=== PATIENT | male | born 1980 | race Caucasian/White ===

== ENCOUNTER → 2017-10-19 14:28 | Outpatient (CLI) | payer OTHER, SELFPAY ==
[2017-10-19 15:02] LABS: ALT 30 U/L (12-78); AST 16 U/L (15-37); Albumin 4.1 g/dL (3.4-5.0); Alkaline Phosphatase 67 U/L (46-116); Anion Gap 6.6 mmol/L (3-11); BUN 24 mg/dL (7-18); Bilirubin, Total 0.3 mg/dL (0.2-1.0); CO2 30.4 mmol/L (21.0-32.0); CREATININE 1.05 mg/dL (0.70-1.30); Calcium 8.7 mg/dL (8.5-10.1); Chloride 105 mmol/L (98-107); Glucose 99 mg/dL (70-100); Magnesium 2.3 mg/dL (1.8-2.4); Potassium 4.2 mmol/L (3.5-5.1); Sodium 142 mmol/L (136-145); TSH (W/Ref FT4) 1.55 uIU/mL (0.358-3.74); Total Protein 7.9 g/dL (6.4-8.2)
== END ==
PROVIDERS: PCP Family Medicine; Visit Provider Family Medicine
DX: I95.1 Orthostatic hypotension (principal)
CPT/HCPCS: 36415; 80053; 83735; 84443

== ENCOUNTER 2018-01-19 00:15 | Outpatient (CLI) | payer OTHER, SELFPAY ==
--- NOTE | 2018-01-19 13:00 | ETT_ITS ---
*[facility]* *[facility]* [address] [place] [address] Stress Electrocardiography Ezra protocol Date of study: 01/19/2018 *PATIENT PRESENTATION* Height: 177.8cm (70in) Blood Pressure: Weight: 85kg (187lb) BSA: 2.06m^2 Ordering physician: Paresh Gonzalez Impressions: Normal study after maximal exercise. Summary: 1. Stress: The target heart rate was achieved. Indication: R07.9. History: REASON FOR VISIT: INTERMITTENT PALPITATIONS AND EXERTIONAL LOWER CHEST DISCOMFORT. PT HAS A HISTORY OF SVT, CURRENTLY ON BETA-KWABENA THERAPY. ALLERGIES: NO KNOWN ALLERGIES. MEDICATIONS: OMEPRAZOLE MAGNESIUM 20 MG PO DAILY. BUPRENORPHINE 2MG - NALOXONE 0.5 MG SUBLINGUAL 4 TABS SL DAILY. CLONAZAEPAM 0.5 MG PO TID. METOPROLOL SUCCINATE ER 50 MG PO DAILY. Protocol: Ezra protocol. Baseline ECG: SINUS RHYTHM. HR 69 BPM. Stress protocol: + +---+ + !Stage !HR !BP (mmHg) ! + +---+ + !Baseline supine !69 !112/72 (85) ! + +---+ + !Baseline standing !78 !110/70 (83) ! + +---+ + !Stage I; 1.7mph, 10degrees; 3 min !146!122/68 (86) ! + +---+ + !Stage II; 2.5mph, 12degrees; 3 min !156!148/82 (104)! + +---+ + !Stage III; 3.4mph, 14degrees; 3 min!164!152/62 (92) ! + +---+ + !Peak stress !164! ! + +---+ + !Immediate post stress !---!122/62 (82) ! + +---+ + !Recovery; 1 min !146! ! + +---+ + !Recovery; 3 min !99 !144/82 (103)! + +---+ + !Recovery; 6 min !90 !120/60 (80) ! + +---+ + * Stress results: Maximal heart rate during stress was 164bpm (90% of maximal predicted heart rate). The maximal predicted heart rate was 183bpm. The target heart rate was achieved. The rate-pressure product for the peak heart rate and blood pressure was 43248nc Hg/min. Stress ECG: TREADMILL PORTION OF STRESS TEST ENDED IN 9 MINUTES & 1 SECOND BECAUSE OF PATIENT FATIGUE NORMAL HEART RATE RESPONSE TO EXERCISE SYSTOLIC BLOOD PRESSURE DROPPED 30 mmHg UPON IMMEDIATE RECOVERY. OTHERWISE NORMAL BP RESPONSE TO EXERCISE MAX HR = 164 % OF TARGET = 89 NO ECTOPY APPROXIMATE METS ACHIEVED = 10.16 NO ANGINA NO SIGNIFICANT ST SEGMENT CHANGES MILDLY DIMINISHED FUNCTIONAL CAPACITY FOR EXERCISE. Study data: Paresh Gonzalez MD supervised and was readily available during the procedure. This study was interpreted by [facility]. Study status: Routine. Consent: The risks, benefits, and alternatives to the procedure were explained to the patient and informed consent was obtained. Procedure: Initial setup. A baseline ECG was recorded. Surface ECG leads and manual cuff blood pressure measurements were monitored. Heart sounds: Normal. Lung sounds: Normal. Treadmill exercise testing was performed using the Ezra protocol. Study completion: The patient tolerated the procedure well and was discharged from the lab. Discharge: The patient left the laboratory in stable condition. Birthdate: Patient birthdate: 1980. Sex: Gender: male. Study date: Study date: 01/19/2018. Study time: 01:00 PM. Signature Documentation: The Stress ECG portion of this study was interpreted by Paresh Gonzalez MD. Electronically signed by Paresh Gonzalez 01/19/2018 14:49
== END 2018-01-19 00:35 ==
PROVIDERS: PCP Family Medicine; Visit Provider Internal Medicine Cardiovascular Disease
DX: R07.9 Chest pain, unspecified (principal); R00.2 Palpitations; I47.1 Supraventricular tachycardia
CPT/HCPCS: 93017

== ENCOUNTER 2018-02-19 02:42 | Outpatient (CLI) | payer OTHER, SELFPAY ==
--- NOTE | 2018-03-30 10:08 | ZIOP_ITS ---
DATE OF DICTATION: March 30, 2018 INDICATION: SVT ANALYSIS TIME: 13 days and 21 hours Predominant underlying rhythm is sinus rhythm. Average heart rate is 69 bpm. Minimum heart rate of 34 bpm. Maximum heart rate of 156 bpm. One run of SVT lasting 12 beats with a maximum heart rate of 156 bpm. Rare isolated atrial ectopy. Rare isolated ventricular ectopy. No non-sustained VT. Three episodes of what appear to be non-conducted APC's. No significant pauses of bradyarrhythmias otherwise. Overall sinus rhythm with one short burst of SVT that was asymptomatic. Thirty patient-triggered events all correspond to sinus rhythm.
== END 2018-02-19 03:02 ==
PROVIDERS: PCP Family Medicine; Visit Provider Family Medicine
DX: I47.1 Supraventricular tachycardia (principal)
CPT/HCPCS: 93225

== ENCOUNTER 2018-04-12 14:43 | Outpatient (REF) | payer OTHER, SELFPAY ==
[2018-04-15 06:55] LABS: Amphetamine Negative ng/mL (Cutoff: 25); Amphetamines Interpretation Negative.; MDA (Ecstasy Metabolite) Negative ng/mL (Cutoff: 25); MDMA (Ecstasy) Negative ng/mL (Cutoff: 25); Methamphetamine Negative ng/mL (Cutoff: 25); Phentermine Negative ng/mL (Cutoff: 25); Pseudoephedrine/Ephedrine Negative ng/mL (Cutoff: 25)
== END 2018-04-12 15:03 ==
LOC: LBN 14:43
PROVIDERS: PCP Family Medicine; Visit Provider Family Medicine
DX: F11.20 Opioid dependence, uncomplicated (principal)
CPT/HCPCS: 80324

== ENCOUNTER 2018-07-19 10:36 | Emergency (ER) | payer OTHER, SELFPAY ==
[2018-07-19 10:54] VITALS: BP 115/67; PULSE 94; RESP 18; TEMP 36.7; O2SAT 96
--- NOTE | 2018-07-19 11:26 | W.ED.GENAD ---
Discharge Plan Disposition Patient Disposition: HOME Condition: Improving Discharge Details Chief Complaint: Nausea/Vomit/Diar Clinical Impression: Gastroenteritis Primary Care Provider: Yang Bejarano ED Provider: Jason Voss Home Meds and New Rx's Prescriptions: Continued buprenorphine-naloxone 2-0.5 mg tablet, sublingual 4 tab SL DAILY Qty: 112 RF: 1 clonazepam [Klonopin] 0.5 mg tablet 0.5 mg PO TID Qty: 88 RF: 0 metoprolol succinate 50 mg tablet extended release 24 hr 25 mg PO DAILY RF: 0 Prilosec OTC 20 MG tablet,delayed release (DR/EC) 20 mg PO DAILY RF: 0 Discharge Instructions Instructions: Gastroenteritis (ED) Additional Instructions: Return immediately to the emergency department if you been again having severe abdominal pain, worsening of symptoms, or further concerns. Otherwise follow-up with your primary care provider if not improving by next week Stand Alone Forms: Work Release Referrals: Yang Bejarano DO [Primary Care Provider] - (As needed for reassessment) Discharge Data Discharge Date/Time-TO BE ENTERED AT DEPARTURE: 07/19/18 13:38 Medical Decision Making Patient presenting the emergency department for chief complaint of nausea vomiting and diarrhea. Patient states that this started 3 days ago and has been persistent with multiple episodes of vomiting and diarrhea. Patient denies any blood in emesis or stool, no mucus in stool, does state some fever last night that has seemed to resolve but is mostly concerned about having some lightheadedness with standing and dehydration. Physical exam shows a nontender abdomen with no peritoneal findings, no surgical findings, and patient is not hypotensive and otherwise stable. Plan to check labs and give IV fluids but at this time I do not feel that CT imaging is warranted given nonsurgical abdominal findings. Pending results patient given Zofran and 1 L NS. Review of results does show a leukocytosis, concentrated urine suggestive of dehydration otherwise nondiagnostic, and nondiagnostic CMP findings. Patient was reassessed and states that he is improving, having multiple urinations, and no longer feels significantly lightheaded upon standing. He is requesting to go home even though he was offered additional IV fluids. Given that he is improving and has no surgical abdominal findings close return precautions were discussed. Patient was able to tolerate p.o. intake prior to discharge. diagnosed with gastroenteritis presumably viral in nature. patient prescribed Zofran for home use. After discussion of diagnosis and plan of care patient has no further needs, questions, or concerns and states clear understanding to return to the emergency department for any worsening symptoms. HPI General Mode of arrival: ambulatory. Date/Time Provider Initiated Documentation: 07/19/18 10:58. Limitations to Documentation: no limitations. Information obtained by: patient and RN notes reviewed. History of Present Illness 38 year old M presents to the emergency department with the chief complaint of Nausea vomiting diarrhea, Quality is described as other (Denies pain), and is localized to the abdomen. Patient started experiencing this day(s) (3) and it has been constant. No relieving factors improve symptom(s), No exacerbating factors reported . Patient did receive the following treatments prior to arrival, none Related Data Home Medications Medication Instructions Recorded Confirmed Prilosec OTC 20 mg PO DAILY tab 06/01/17 07/05/18 metoprolol succinate ER 50 mg 25 mg PO DAILY tab 05/10/18 07/05/18 tablet,extended release 24 hr buprenorphine 2 mg-naloxone 0.5 mg 4 tab SL DAILY #112 tab 07/05/18 07/05/18 sublingual tablet clonazepam 0.5 mg tablet 0.5 mg PO TID #88 tab 07/05/18 07/05/18 Previous Rx's Medication Instructions Recorded buprenorphine 2 mg-naloxone 0.5 mg 4 tab SL DAILY #112 tab 07/05/18 sublingual tablet clonazepam 0.5 mg tablet 0.5 mg PO TID #88 tab 07/05/18 Allergies Allergy/AdvReac Type Severity Reaction Status Date / Time No Known Allergies Allergy Verified 07/05/18 15:07 General Stated Complaint: Nausea/Vomit/Diar ANGELINA: 3 Review of Systems Constitutional Reports chills, Denies fever(s) and Reports poor appetite Cardiovascular Denies chest pain and Denies dyspnea Respiratory Denies cough and Denies dyspnea Gastrointestinal Reports as per HPI, Denies abdominal pain, Denies melena, Denies hematochezia, Denies change in bowel habits, Denies constipation, Reports diarrhea, Reports nausea and Reports vomiting Genitourinary Denies hematuria, Denies difficulty urinating, Denies urinary hesitancy, Denies urinary incontinence and Denies urinary urgency Integumentary/Breasts Denies rash [facility] Medical History Uncomplicated opioid dependence (Chronic 06/01/17) Family History Mother No problems noted. 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 Working smoke detector in home: Yes Fire extinguisher in home: Yes Carbon monox detector in home: Yes Do you feel safe at home: Yes Exam Const General: cooperative Orientation: alert, awake and oriented x3 Resp Effort & Inspection: normal respiratory effort and able to speak in complete sentences Auscultation: clear to auscultation bilaterally Cardio Rate: regular rate Rhythm: regular rhythm Heart Sounds: S1 normal and S2 normal GI Palpation: soft, no hepatosplenomegaly, not firm, no guarding, no masses, no pulsatile masses, not rigid, no splenomegaly and nontender Auscultation: hypoactive bowel sounds Back/Spine/Pelvis Back: no CVA tenderness Neuro General: alert, awake, oriented x3, gait normal and moves all extremities Course Vital Signs Temperature 36.7 C 07/19/18 10:54 Pulse 94 H 07/19/18 10:54 Respiratory Rate 18 07/19/18 10:54 Blood Pressure 115/67 07/19/18 10:54 Pulse Oximetry 96 07/19/18 10:54 Temperature 36.7 C 07/19/18 10:54 Temperature Source Skin 07/19/18 10:54 Pulse 94 H 07/19/18 10:54 Respiratory Rate 18 07/19/18 10:54 Blood Pressure 115/67 07/19/18 10:54 Pulse Oximetry 96 07/19/18 10:54 Pain Level 0 07/19/18 10:54
[2018-07-19] MEDS: Ondansetron 4 MG/2 ML VIAL IVP (11:39)
[2018-07-19] MEDS: Normal Saline 1,000 ML 1000 ML IV (11:39)
[2018-07-19 11:47] LABS: Abs Immature Grans 0.05 k/cumm (0.0-0.09); Absolute Basophil Count 0.02 k/cumm (0.0-0.2); Absolute Lymphocyte Count 1.13 k/cumm (1.2-3.4); Absolute Monocyte Count 0.75 k/cumm (0.11-0.7); Absolute Neutrophil Count 13.98 k/cumm (1.2-6.7); Basophils % 0.1; Eosinophils % 0.1; HCT 38.9 % (40.0-50.0); HGB 13.1 g/dL (13.5-17.5); Immature Grans % 0.3; Lymphocytes % 7.1; Mean Corp. HGB Concentration 33.7 g/dL (32.0-36.0); Mean Corpuscular Hemoglobin 29.7 pg (27.0-33.0); Mean Corpuscular Volume 88.2 fL (80-95); Mean Platelet Volume 9.9 fL (8.0-11.0); Monocytes % 4.7; Neutrophils % 87.7; Platelet Count 255 x1000/uL (130-400); RBC 4.41 m/cumm (4.50-6.00); RBC Distribution Width 12.6 % (11.8-14.1); White Blood Cell Count 15.94 k/cumm (4.4-10.8)
[2018-07-19 11:49] LABS: Absolute Eosinophil Count 0.02 k/cumm (0.0-0.7)
[2018-07-19 11:59] LABS: ALT 55 U/L (12-78); AST 39 U/L (15-37); Albumin 4.2 g/dL (3.4-5.0); Alkaline Phosphatase 64 U/L (46-116); Anion Gap 9.9 mmol/L (3-11); BUN 24 mg/dL (7-18); Bilirubin, Total 0.5 mg/dL (0.2-1.0); CO2 27.1 mmol/L (21.0-32.0); CREATININE 1.02 mg/dL (0.70-1.30); Chloride 102 mmol/L (98-107); Glucose 122 mg/dL (70-100); Lipase 248 U/L (73-393); Potassium 4.2 mmol/L (3.5-5.1); Sodium 139 mmol/L (136-145); Total Protein 7.9 g/dL (6.4-8.2)
[2018-07-19 12:12] LABS: Calcium 9.1 mg/dL (8.5-10.1)
[2018-07-19 12:31] LABS: Bilirubin Negative (Negative); Blood Negative (Negative); Clarity Clear; Glucose Negative (Negative); Ketones Negative (Negative); Leukocyte Esterase Negative (Negative); Nitrite Negative (Negative); Specific Gravity 1.015 (1.005-1.025); Urobilinogen 0.2 EU/dL (Up TO 0.2); pH 8.5 (5-8)
--- NOTE | 2018-07-19 12:36 | NUR.NOTE ---
patient rounded on, ART DEALER aware of patient's headache. Nursing Note:
[2018-07-19 12:45] LABS: Bacteria Negative HPF (Negative); C & S Indicated? No; Casts Negative LPF (Negative); Crystals Negative HPF (Negative); Epithelial Cells Rare HPF (Negative); Mucus Trace (Negative); RBC Negative (0-2); WBC 0-2 HPF (0-5)
--- NOTE | 2018-07-19 12:50 | NUR.NOTE ---
patient refused offered toradol and would like to go home, patient took po execedrin with out vomiting, patient ambulating steadily. Nursing Note:
== END 2018-07-19 13:38 | disposition home or self-care (01) ==
PROVIDERS: Emergency Provider Nurse Practitioner Family; PCP Family Medicine
DX: K52.9 Noninfective gastroenteritis and colitis, unspecified (principal)
CPT/HCPCS: 36415; 80053; 83690; 96361; 96374; 99284; 81003; 81015; 85025; J2405

== ENCOUNTER 2018-09-03 01:57 | Outpatient (CLI) | payer OTHER, SELFPAY ==
--- NOTE | 2018-09-03 09:25 | DI.RAD_ITS ---
SYMPTOM/DIAGNOSIS; POSITIONAL RADICULOPATHY M54.14 THORACIC SPINE: Comparison is made with chest x-ray dated 11 Feb 2006 The vertebral bodies are well maintained in height. There are no significant end plate osteophytes. There is no visible scoliosis. The heart size appears normal. The visualized portions of the lungs appear clear. IMPRESSION: Negative thoracic spine.
--- NOTE | 2018-09-03 09:25 | DI.CT_ITS ---
SYMPTOM/DIAGNOSIS: UNINTENTIONAL 20 LB WEIGHT LOSS, LUQ PAIN CT CHEST, ABDOMEN AND PELVIS IV access was unable to be obtained. Images were performed from the clavicles through the ischial tuberosities after oral contrast. The lungs are clear. No pleural or pericardial effusions are seen. The heart size is normal. There is no evidence of adenopathy. The thyroid appears normal. The liver, gallbladder, spleen, pancreas, adrenals and left kidney are unremarkable without IV contrast. There is an area of scarring at the upper pole of the right kidney. No renal calculi or hydronephrosis is seen. The bladder and prostate are unremarkable. There is increased stool in the rectum. There are scattered diverticula but no evidence of diverticulosis. There is no gross evidence of a colonic mass. There is no small bowel dilatation The appendix appears normal. There are bilateral L5 pars defects. There is slight L5-S1 spondylolisthesis. No lytic or blastic bony lesions are seen. The aorta is normal in diameter. IMPRESSION: No acute abnormality.
== END 2018-09-03 02:17 ==
PROVIDERS: PCP Family Medicine; Visit Provider Family Medicine
DX: M54.14 Radiculopathy, thoracic region; M54.6 Pain in thoracic spine; R63.4 Abnormal weight loss; R10.12 Left upper quadrant pain; K57.30 Diverticulosis of large intestine without perforation or abscess without bleeding
CPT/HCPCS: 71250; 72072; 74176

== ENCOUNTER 2018-12-03 16:21 | Emergency (ER) | payer OTHER, SELFPAY ==
[2018-12-03 16:23] VITALS: BP 117/82; PULSE 76; RESP 16; TEMP 36.6; O2SAT 98
--- NOTE | 2018-12-03 16:32 | ED.GENADUL_ITS ---
Discharge Plan Disposition Patient Disposition: HOME Condition: Good Discharge Details Chief Complaint: Abd Prob Clinical Impression: Abdominal pain, Cyst of spleen, Anemia Primary Care Provider: Yang Bejarano ED Provider: Lizabeth Yousif Home Meds and New Rx's Prescriptions: Continued metoprolol succinate 50 mg tablet extended release 24 hr 50 mg PO DAILY RF: 0 buprenorphine-naloxone 2-0.5 mg tablet, sublingual 2 tab SL BID Qty: 112 RF: 1 clonazepam [Klonopin] 0.5 mg tablet 0.5 mg PO TID Qty: 90 RF: 0 Prilosec OTC 20 MG tablet,delayed release (DR/EC) 20 mg PO DAILY RF: 0 Discharge Instructions Instructions: Abdominal Pain (ED) Additional Instructions: Encourage hydration. You may continue with Tylenol and ibuprofen as needed for discomfort. Please follow-up with primary care at the end of the week if pain persist. He will need follow-up with general surgery, I have sent a referral for this. You may call tomorrow to schedule appointment, number listed below. If you develop fever/chills, inability stay hydrated, increased pain or other new/worsening symptoms please seek care urgently once again. Referrals: Yang Bejarano DO [Primary Care Provider] - Emeli Silverman DO [OSTEOPATHIC DOCTOR] - Medical Decision Making Patient is a 38-year-old male presenting today with chief complaint of right inguinal pain. Patient reports that he has a known right inguinal hernia. He is status post left inguinal hernia repair from 2009. States that his hernia has been bothering over the past several months but that over the past 3 to 4 days, the pain has been more consistent. States over the past several months has had some mild nausea that is been limiting his appetite. Reports over 40 pound weight loss over the past 2 months. Patient's been closely followed by his primary care. States that he typically suffers from constipation associates this with his daily Suboxone use. Denies any fevers or chills. States the pain can radiate around the abdomen. Reports he did have a bowel movement this morning that was smaller than his typical. States that he does hold the hernia when having a bowel movement or straining. Denies any dysuria, hematuria, penile discharge or penile pain. No other abdominal surgeries. Patient also reports that 2 days ago he had an episode of 40 minutes of chest pain with pain radiating into the left arm. States that this occurred while he was driving. Denies any shortness of breath. States he is also been suffering from intermittent dizziness. On that same day as the chest pain, he reports experiencing dizziness to the point that he almost fell and laid on the ground. Denies any loss of consciousness. Is not currently symptomatic. Denies any headache. No visual changes. No neck pain. Patient has history of anxiety, cannot see patient due to opioid therapy for diverticulosis, incarcerated right inguinal hernia, opioid dependence. He denies any IV drug use. FINDINGS: Lungs: Lung bases clear. Liver: Normal appearing liver. Gallbladder and bile ducts: Normal appearing gallbladder. No calcified gallstones. No biliary dilatation. Pancreas: Moderate atrophy of the pancreas. Spleen: Indeterminate hypoattenuating splenic lesion, incompletely characterized but most likely a small cyst or hemangioma. Adrenals: Normal appearing adrenal glands. Kidneys and ureters: Renal cortical defect on the right with an appearance suggesting a prior infarct, prior infection, or other prior renal insult. Otherwise normal renal morphology. No hydronephrosis. Stomach and bowel: No oral contrast. Stomach partially decompressed. No small bowel dilatation to suggest obstruction. Distal ascending and proximal sigmoid colon almost completely evacuated fecal material, collapsed, and apparently thickwalled. Artifact of incomplete distention? Acute segmental colitis? Appendix: Normal appendix. Intraperitoneal space: No gross ascites or free air. Vasculature: Normal caliber abdominal aorta. Lymph nodes: No pathologically enlarged mesenteric, retroperitoneal, or pelvic sidewall lymph nodes. Bladder: Urinary bladder partially collapsed but grossly unremarkable, as seen. Reproductive: Normal-appearing prostate gland and seminal vesicles. Bones/joints: Bilateral spondylolysis at L5 but no associated spondylolisthesis. No acute fracture seen among the bones of the abdomen or pelvis. Soft tissues: No significant ventral or inguinal hernia. IMPRESSION: 1. Distal ascending and proximal sigmoid colon almost completely evacuated fecal material, collapsed, and apparently thickwalled. Artifact of incomplete distention or acute segmental colitis could have this appearance. Clinical correlation is recommended. If there is clinical concern for colitis, infectious, inflammatory, or ischemic etiologies should be considered. 2. Normal appendix. The colitis that is on the differential as above is not suspect at this time. Patient is not having any diarrhea. He is nontender in this area. He is not having any fevers, no white count. This is likely as also may be suggested as a artifact of incomplete distention. Labs reviewed. He has no white count. He is anemic with hemoglobin 12 the patient. BUN is elevated 25. This is normal for the patient. Troponin is within normal limits. No abnormalities noted on the urine. Discussed these findings with the patient. I advised that while he does seem to still have some tenderness and swelling consistent with an inguinal hernia, it may be reducing when supine as in the CT. At this point, there is no evidence on physical exam or on CT to suggest an incarcerated hernia. He does not have any evidence of acute coronary syndrome. Patient's been resting comfortably here. He is actually sleeping. I did advise that he will need close follow-up particularly as he has had such significant weight loss. At this point though, I feel that emergent differentials have been excluded. He will follow-up with primary care and has been referred to general surgery for his persistent right inguinal discomfort. He was given strict return precautions. All his questions and concerns were addressed and he is in agreement with this plan. [facility] General Mode of arrival: ambulatory . Date/Time Provider Initiated Documentation: 12/03/18 16:31 . Limitations to Documentation: no limitations . Information obtained by: patient and RN notes reviewed . History of Present Illness 38 year old M presents to the emergency department with the chief complaint of abdominal pain, described as moderate, Quality is described as aching, and is localized to the abdomen. Patient reports no radiation. Patient started experiencing this day(s) (3) and it has been constant. No relieving factors improve symptom(s), Eating worsens symptoms . Patient notes chest pain (a few days ago while driving, asympatomic since then), loss of appetite, nausea/vomiting (nausea, no vomiting) and weakness (describes generalized weakness); denies cough, diaphoresis, fever/chills, headaches, malaise, rash, shortness of breath and syncope. Patient did receive the following treatments prior to arrival, none Related Data Home Medications Medication Instructions Recorded Confirmed Prilosec OTC 20 mg PO DAILY tab 06/01/17 12/03/18 metoprolol succinate 50 mg 50 mg PO DAILY tab 09/25/18 12/03/18 tablet,extended release 24 hr buprenorphine 2 mg-naloxone 0.5 mg 2 tab SL BID #112 tab 11/20/18 12/03/18 sublingual tablet clonazepam 0.5 mg tablet 0.5 mg PO TID #90 tab 11/20/18 12/03/18 Previous Rx's Medication Instructions Recorded buprenorphine 2 mg-naloxone 0.5 mg 2 tab SL BID #112 tab 11/20/18 sublingual tablet clonazepam 0.5 mg tablet 0.5 mg PO TID #90 tab 11/20/18 Allergies Allergy/AdvReac Type Severity Reaction Status Date / Time No Known Allergies Allergy Verified 11/20/18 14:04 General Stated Complaint: Abd Prob ANGELINA: 3 Review of Systems Constitutional Constitutional: Reports as per HPI, Denies chills, Denies fever(s), Denies headache(s), Denies lethargy, Denies poor appetite and Reports weight loss Eyes Eyes: Denies change in vision ENT Ears, Nose, Mouth, and Throat: Denies dizziness and Denies headache(s) Cardiovascular Cardiovascular: Reports as per HPI, Reports chest pain (while driving 3 days ago), Denies dyspnea and Denies dyspnea on exertion Respiratory Respiratory: Reports as per HPI, Denies chest congestion, Denies cough, Denies pain on inspiration, Denies pain with cough, Denies dyspnea, Denies dyspnea on exertion and Denies wheezing Gastrointestinal Gastrointestinal: Reports as per HPI, Reports abdominal pain, Denies change in bowel habits (chronic constipation), Denies coffee ground emesis, Reports constipation, Denies cramping, Denies diarrhea, Reports nausea and Denies vomiting Genitourinary Genitourinary: Denies system reviewed and no additional complaints, except as docu (denies change in urinary habits) Musculoskeletal Musculoskeletal: Reports as per HPI and Denies back pain Integumentary/Breasts Skin/Breast: Reports as per HPI and Denies rash Neurologic Neurologic: Reports as per HPI, Denies dizziness and Denies headache(s) Allergic/Immunologic Allergic/Immunologic: Denies wheezing [facility] Medical History Anxiety (Chronic) Constipation due to opioid therapy (Acute) Diverticulosis (Acute) Incarcerated right inguinal hernia (Acute) Uncomplicated opioid dependence (Chronic 06/01/17) Social History Smoking/Tobacco Use Status: Former Tobacco Use Alcohol Intake: never Drug use: Current Sobriety Substance use type: former substance user and opiates Household members: children Housing: house Number of Children: 2 current occupation: works [employer] What type of physical activity do you participate in: none Seatbelt use: always Drive intox or ride w/intox lyft driver: No Working smoke detector in home: Yes Fire extinguisher in home: Yes Carbon monox detector in home: Yes Do you feel safe at home: Yes Do you feel safe in your relationship?: Yes Exam Const General: cooperative, healthy appearing, comfortable, no acute distress and well developed Nutritional Appearance: average body habitus and well nourished Orientation: alert, awake and oriented x3 HENMT Head: normal to inspection Ears: hearing grossly normal bilaterally Mouth: moist mucous membranes Chest Chest: normal inspection of the chest, normal palpation of entire chest wall and no crepitus Resp Effort & Inspection: normal respiratory effort, able to speak in complete sentences and no respiratory distress Auscultation: clear to auscultation bilaterally, no rales, no rhonchi and no wheezes Cardio Rate: regular rate Rhythm: regular rhythm Heart Sounds: S1 normal and S2 normal GI Inspection: normal to inspection, no edema, non-distended, no visible herniation and No visible peristalsis Palpation: soft, no hepatosplenomegaly, not firm, no guarding, hernia direct inguinal (swelling over this area, tender to palpation, no erythema/warmth, soft to palpation) on the right, no pulsatile masses, not rigid, no splenomegaly and nontender Percussion: normal to percussion Auscultation: hypoactive bowel sounds Back/Spine/Pelvis Back: no CVA tenderness Thoracic/Lumbar Spine: thoracic and lumbar spine normal to inspection Skin General skin exam: no rashes or lesions noted Trauma: no lacerations or abrasions Neuro General: alert, awake and oriented x3 Cognition: normal cognition Speech: speech normal Gait: normal gait Extrem General: normal to inspection, normal capillary refill, no pedal edema, no calf tenderness and normal gait Psych Appearance: grossly normal and well kempt Mental Status: mental status grossly normal Speech and Movement: speech and movement normal Course Vital Signs Vital signs: Vital Signs Temperature 36.6 C 12/03/18 16:23 Pulse 76 12/03/18 16:23 Respiratory Rate 16 12/03/18 16:23 Blood Pressure 117/82 12/03/18 16:23 Pulse Oximetry 98 12/03/18 16:23 Temperature 36.6 C 12/03/18 16:23 Temperature Source Skin 12/03/18 16:23 Pulse 76 12/03/18 16:23 Respiratory Rate 16 12/03/18 16:23 Respiratory Effort Non-Labored 12/03/18 16:28 Blood Pressure 117/82 12/03/18 16:23 Blood Pressure Position Sitting 12/03/18 16:23 Pulse Oximetry 98 12/03/18 16:23 Oxygen Delivery Method Room Air 12/03/18 16:23 Oxygen Flow Rate 0 12/03/18 16:23
--- NOTE | 2018-12-03 16:46 | DI.CT_ITS ---
EXAM: CT ABDOMEN PELVIS W CLINICAL HISTORY: RLQ pain near hernia. TECHNIQUE: The examination was carried out with intravenous injection of 100 cc of Omnipaque 350. COMPARISON: CT CHEST/ABD/PEL W from 09/03/2018 FINDINGS: The liver is normal. The gallbladder is normal. There are no stones or ductal dilatation. There is m oderate pancreatic atrophy. Intermediate hypoattenuating splenic lesion is demonstrated and most lik carlos represents a small cyst or hemangioma. Adrenals are normal. There is a renal cortical defect on the right with an appearance suggesting a prior infarct or infection. Kidneys are otherwise normal with no evidence of hydronephrosis. Stomach is partially decompressed. There is no evidence of bowel obstruction. The distal ascending proximal sigmoid colon are a completely evacuated of fecal materi al and collapsed with questionable wall thickening. This finding could be due to incomplete distensi on. Acute segmental colitis could not be entirely excluded. The appendix is normal. There is no boris dence of free air or free fluid in the intra peritoneal space. There is no evidence of an aortic ane urysm. There are no enlarged lymph nodes. Suboptimally distended bladder appears grossly unremarkabl e. The reproductive organs as visualized appear intact. Note is made of bilateral spondylosis at L5 with no associated spondylolisthesis. There is no acute bony abnormality. No significant ventral or inguinal hernia. IMPRESSION: The distal ascending and proximal sigmoid colon are almost completely evacuated of fecal material and collapsed and may be thick-walled. Findings could represent an artifact secondary to incomplete dist ension. Segmental colitis not excluded. Clinical correlation is recommended. The appendix is normal.
--- NOTE | 2018-12-03 16:46 | DI.RAD_ITS ---
EXAM: XR CHEST 2V PA LATERAL INDICATION: CP, currently asympatomic. COMPARISON: XR thoracic spine complete from 09/03/2018 TECHNIQUE: 2D digital imaging was performed. FINDINGS: The lungs are well expanded and free of infiltrate. There is no pleural effusion. The cardiovascular structures appear intact. IMPRESSION: No evidence of acute cardiopulmonary disease.
[2018-12-03] MEDS: Normal Saline 1,000 ML 1000 ML IV (16:55)
[2018-12-03 17:00] LABS: Absolute Basophil Count 0.04 k/cumm (0.0-0.2); Absolute Eosinophil Count 0.02 k/cumm (0.0-0.7); Absolute Lymphocyte Count 2.56 k/cumm (1.2-3.4); Absolute Monocyte Count 0.61 k/cumm (0.11-0.7); Absolute Neutrophil Count 3.78 k/cumm (1.2-6.7); Basophils % 0.6; Eosinophils % 0.3; HCT 34.8 % (40.0-50.0); Lymphocytes % 36.5; Mean Corp. HGB Concentration 34.5 g/dL (32.0-36.0); Mean Corpuscular Hemoglobin 29.8 pg (27.0-33.0); Mean Corpuscular Volume 86.4 fL (80-95); Mean Platelet Volume 9.5 fL (8.0-11.0); Monocytes % 8.7; Neutrophils % 53.9; Platelet Count 285 x1000/uL (130-400); RBC 4.03 m/cumm (4.50-6.00); RBC Distribution Width 12.4 % (11.8-14.1); White Blood Cell Count 7.01 k/cumm (4.4-10.8)
[2018-12-03 17:13] LABS: ALT 20 U/L (16-63); AST 13 U/L (15-37); Albumin 4.1 g/dL (3.4-5.0); Alkaline Phosphatase 54 U/L (46-116); Anion Gap 8.3 mmol/L (3-11); BUN 25 mg/dL (7-18); Bilirubin, Total 0.3 mg/dL (0.2-1.0); CO2 28.7 mmol/L (21.0-32.0); CREATININE 0.97 mg/dL (0.70-1.30); Calcium 8.7 mg/dL (8.5-10.1); Chloride 108 mmol/L (98-107); Glucose 85 mg/dL (70-100); Magnesium 2.1 mg/dL (1.8-2.4); Potassium 3.7 mmol/L (3.5-5.1); Sodium 145 mmol/L (136-145); Total Protein 7.4 g/dL (6.4-8.2); Troponin I < 0.05 ng/mL (0.00-0.06)
[2018-12-03 17:44] LABS: Bilirubin Negative (Negative); Blood Negative (Negative); Clarity Sl Cloudy (Clear); Glucose Negative (Negative); Ketones Negative (Negative); Leukocyte Esterase Negative (Negative); Nitrite Negative (Negative); Specific Gravity 1.015 (1.005-1.025); pH 7.5 (5-8)
--- NOTE | 2018-12-03 18:10 | DI.VRAD_ITS ---
PROCEDURE INFORMATION: Exam: CT Abdomen and Pelvis With Contrast Exam date and time: 12/03/2018 5:38 PM Clinical history: 38 years old, male; Abdominal pain; Localized; Right lower quadrant (rlq); Patient HX: Rlq pain near hernia TECHNIQUE: Imaging protocol: Computed tomography of the abdomen and pelvis with intravenous contrast. COMPARISON: CT CHEST/ABD/PEL W 09/03/2018 11:20 AM FINDINGS: Lungs: Lung bases clear. Liver: Normal appearing liver. Gallbladder and bile ducts: Normal appearing gallbladder. No calcified gallstones. No biliary dilatation. Pancreas: Moderate atrophy of the pancreas. Spleen: Indeterminate hypoattenuating splenic lesion, incompletely characterized but most likely a small cyst or hemangioma. Adrenals: Normal appearing adrenal glands. Kidneys and ureters: Renal cortical defect on the right with an appearance suggesting a prior infarct, prior infection, or other prior renal insult. Otherwise normal renal morphology. No hydronephrosis. Stomach and bowel: No oral contrast. Stomach partially decompressed. No small bowel dilatation to suggest obstruction. Distal ascending and proximal sigmoid colon almost completely evacuated fecal material, collapsed, and apparently thickwalled. Artifact of incomplete distention? Acute segmental colitis? Appendix: Normal appendix. Intraperitoneal space: No gross ascites or free air. Vasculature: Normal caliber abdominal aorta. Lymph nodes: No pathologically enlarged mesenteric, retroperitoneal, or pelvic sidewall lymph nodes. Bladder: Urinary bladder partially collapsed but grossly unremarkable, as seen. Reproductive: Normal-appearing prostate gland and seminal vesicles. Bones/joints: Bilateral spondylolysis at L5 but no associated spondylolisthesis. No acute fracture seen among the bones of the abdomen or pelvis. Soft tissues: No significant ventral or inguinal hernia. IMPRESSION: 1. Distal ascending and proximal sigmoid colon almost completely evacuated fecal material, collapsed, and apparently thickwalled. Artifact of incomplete distention or acute segmental colitis could have this appearance. Clinical correlation is recommended. If there is clinical concern for colitis, infectious, inflammatory, or ischemic etiologies should be considered. 2. Normal appendix. Dictated and Authenticated by: Paolo Powell MD. Ordering:ION Barone MD
--- NOTE | 2018-12-03 18:34 | DI.VRAD_ITS ---
PROCEDURE INFORMATION: Exam: XR Chest, 2 Views Exam date and time: 12/03/2018 4:49 PM Clinical history: 38 years old, male; Chest pain; Type not specified TECHNIQUE: Imaging protocol: XR of the chest Views: 2 views. COMPARISON: CR CHEST 2 VIEWS PA,LAT 02/12/2016 1:27 AM FINDINGS: Lungs: The lung villa appear clear. No pulmonary consolidation is seen. Pleural space: No pleural effusion or pneumothorax is demonstrated. Heart/Mediastinum: Heart size is normal. The mediastinal contours appear normal. Bones/joints: The visualized bony skeleton appears grossly intact. IMPRESSION: No active disease is seen in the chest. Dictated and Authenticated by: Paolo Powell MD. Ordering:ION Barone MD
--- NOTE | 2018-12-03 18:38 | NUR.NOTE ---
faxed referral to [facility]Nursing Note:
[2018-12-03 18:44] VITALS: BP 104/56; PULSE 59; RESP 14; O2SAT 100
== END 2018-12-03 18:46 | disposition home or self-care (01) ==
PROVIDERS: Emergency Provider Physician Assistant; PCP Family Medicine
DX: R10.9 Unspecified abdominal pain (principal); D73.4 Cyst of spleen; K40.90 Unilateral inguinal hernia, without obstruction or gangrene, not specified as recurrent; D64.9 Anemia, unspecified
CPT/HCPCS: 36415; 80053; 96361; 96374; 99285; 71046; 74177; 81003; 83735; 84484; 85025; 99284

== ENCOUNTER 2019-07-30 11:05 | Outpatient (CLI) | payer OTHER, SELFPAY ==
[2019-07-31 15:22] LABS: COVID-19 RT-PCR Result NEGATIVE (Negative)
== END 2019-07-30 11:25 ==
PROVIDERS: PCP Family Medicine; Visit Provider Family Medicine
DX: Z11.59 Encounter for screening for other viral diseases (principal)
CPT/HCPCS: U0003

== ENCOUNTER 2020-01-31 04:34 | Outpatient (CLI) | payer OTHER, SELFPAY ==
--- NOTE | 2020-01-31 07:30 | DI.RAD_ITS ---
EXAM: XR CERVICAL SPINE COMP 4-5V CLINICAL HISTORY: CERVICAL RADICULOPATHY,C6,M54.12. TECHNIQUE: 2D digital imaging was performed. COMPARISON: No exams were available for comparison FINDINGS: There is some straightening of the normal cervical lordosis. There is mild disc space narrowing and small endplate osteophytes C6-7. There are facet degenerative changes, which are greatest at C3-4 wh ich appears to cause right neural foraminal narrowing. The remaining neural foramina appear patent. The airway appears intact.. IMPRESSION: Facet joint degenerative changes at C3-4 cause right neural foraminal narrowing. Mild degenerative d isc changes seen at C6-7. DATA REPOSITORY: RADIATION DOSE DELIVERED:
== END 2020-01-31 04:54 ==
PROVIDERS: PCP Family Medicine; Visit Provider Family Medicine
DX: M47.22 Other spondylosis with radiculopathy, cervical region (principal)
CPT/HCPCS: 72050

== ENCOUNTER 2020-12-19 22:52 | Emergency (ER) | payer OTHER, SELFPAY ==
[2020-12-19 22:59] VITALS: BP 149/92; PULSE 99; RESP 18; TEMP 36.3; O2SAT 97
--- NOTE | 2020-12-19 23:00 | DI.CT_ITS ---
Exam(s) CT RENAL COLIC WO EXAM: CT RENAL COLIC WO CLINICAL HISTORY: hematuria, r/o stone. TECHNIQUE: Imaging Protocol: Axial computed tomography images with coronal and sagittal reformatted images were created and reviewed CONTRAST MATERIAL: Intravenous: none Oral: None COMPARISON: CT CT ABDOMEN PELVIS W from 12/03/2018 FINDINGS: VISUALIZED LUNG BASES: No nodules nor pleural effusions evident. ABDOMEN: There is a moderate size hiatal hernia now evident There is no ascites. LIVER: There are no obvious focal hepatic lesions evident of this noninfused study. GALLBLADDER/BILIARY: Slightly distended. Not edematous. No obvious intraluminal gallstones. CBD is not dilated. PANCREAS: No evidence of pancreatic mass nor dilatation of the pancreatic duct. SPLEEN: Spleen is not enlarged. There is a well-circumscribed lesion in the anterior aspect of the s pleen again noted which measures 2.2 by 1.9 cm, slightly increased in size from previous. Exhibits f luid density. Possibly enlarging cyst versus other pathology.. ADRENALS: There are no significant adrenal masses. KIDNEYS:No cysts evident. No solid renal masses. No calculi nor hydronephrosis.. Urinary bladder aga in exhibits a diffusely thickened wall, possibly related to cystitis. No evidence of emphysematous c ystitis. ABDOMINAL AORTA: Abdominal aorta is not enlarged. LYMPH NODES: There is no retroperitoneal nor paraaortic adenopathy. ABDOMINAL WALL: There has been interval right sided hernia repair with 3 similar-appearing radiopaque densities posterior to right side of the rectus abdominus muscle. There is no abnormal fluid collec tion at this level. There is also a density at level the left internal inguinal ring which is unchan ged from November 2018 and most probably is related to prior left inguinal hernia repair. GI: There is no evidence of bowel obstruction, free air, nor abscess. No evidence of acute appendicitis. However, there is a subtle area of but may be circumferential bow el wall thickening in the sigmoid and there is a small amount of free fluid in the dependent aspect o f the pelvis which is never a normal finding in a male patient. PELVIS: LYMPH NODES: There is no intrapelvic nor inguinal adenopathy. GI: No evidence of appendicitis.No evidence of sigmoid diverticulitis. URINARY BLADDER: Thickened wall as described above. REPRODUCTIVE: Prostate size upper normal. OSSEOUS: No significant osseous lesions. No fractures. There are bilateral pars defects at the L5 l evel with mild anterolisthesis of L5 upon S1. This finding was previously present and appears unchan ged from 2019. IMPRESSION: 1. Compared to the prior CT scan of November 2018 there is again noted evidence of left inguinal her abbie repair and there has been interval placement of a right-sided the mesh behind the right rectus ab dominus muscle which is most probably also for interval hernia repair. There is no associated abnorm al fluid collection. 2. There is a small amount of free fluid in the dependent aspect of the pelvis which is never a babita l finding in a male patient. There is a suggestion of circumferential thickening of part of the sigm oid, possibly element of colitis or focal wall lesion. There does not appear to be an obvious inflam ed diverticulum. Follow-up colonoscopy recommended. 3. Moderate-sized hiatal hernia, more so than previous. 4. Slightly distended gallbladder. No obvious gallstones. If clinically indicated this could be fu rther followed up with ultrasound. The CBD is not dilated. 5. There is an increasing size solitary finding in the anterior aspect of the spleen, presently s[place] uring 2.2 cm wide by 1.9 cm AP. Given that it is increasing in size I recommend ultrasound to ensure that this is a cyst, particularly given that this is a noninfused CT scan. RADIATION DOSE DELIVERED: 699.94mGy.cm Total DLP DATA REPOSITORY: All CT scans at this facility are submitted to the National Radiology Data Registry (NRDR) Dose Index Registry (DIR) with the [employer] ([employer]). RADIATION OPTIMIZATION: All CT scans at this facility use at least one of these dose optimization te chniques: automated exposure control; mA and/or kV adjustment per patient size (includes targeted exa ms where dose is matched to clinical indication); or iterative reconstruction.
--- NOTE | 2020-12-19 23:18 | W.ED.GENAD ---
Discharge Plan Disposition Patient Disposition: HOME Condition: Good Discharge Details Clinical Impression: Acute UTI Primary Care Provider: Yang Bejarano ED Provider: Ceasar Mcgrath Home Meds and New Rx's Prescriptions: New cephalexin 500 mg capsule 500 mg PO QID 7 Days Qty: 28 RF: 0 Continued buprenorphine-naloxone 2-0.5 mg tablet, sublingual 2 tab sublingual BID MDD 8 mg buprenorphine Qty: 112 RF: 2 clonazepam 0.5 mg tablet 0.5 mg PO TID MDD 1.5 mg PRN (Reason: anxiety) Qty: 90 RF: 2 omeprazole magnesium [Prilosec OTC] 20 MG tablet,delayed release (DR/EC) 20 mg PO DAILY RF: 0 metoprolol succinate 25 mg tablet extended release 24 hr 25 mg PO DAILY Qty: 90 RF: 3 sildenafil 50 mg tablet 50 mg PO DAILY PRN (Reason: sexual activity) Qty: 14 RF: 6 Discharge Instructions Instructions: Urinary Tract Infection in Men (ED) Additional Instructions: you have evidence of urinary tract infection. Please take the antibiotic as directed. The prescription has also been sent to your pharmacy on file. Drink plenty of fluids and cranberry juice to help decrease your symptoms. If you notice any worsening of your symptoms, or any new symptoms such as vomiting, diarrhea, fever, chills, shortness of breath, chest pain, numbness, weakness, or fainting , please return immediately to the emergency department for reevaluation. Please follow up with your primary care provider as soon as possible for reassessment and reevaluation. As always, it was a pleasure participating in your medical care today. Referrals: Yang Bejarano DO [Primary Care Provider] - Medical Decision Making This is a pleasant 40-year-old male with a past medical history of previous diverticulosis, SVT, inguinal hernia repair who presents today for evaluation of urinary frequency and burning. Patient states that for the last 12 to 24 hours he has had burning with urination, increased frequency, noticed a small amount of blood. He denies any flank or back pain but does admit to sensation of tightening in his back. He did have an episode of vomiting prior to arrival but otherwise denies any abdominal pain. No chest pain or shortness of breath. No history of STDs. Patient denies any anal intercourse, states that he has been with the same partner for quite some time. He denies any discharge from his penis. Patient denies any history of kidney stones but does state that he had a urinary tract infection before in the past. He states this feels identical to his last UTI. Patient has been taking Azo for the last 18 hours. Physical exam demonstrates negative urinary exam, no genital testicular tenderness, no abdominal tenderness. Suspect urinary tract infection, but do have concern for potential urolithiasis given the blood. He has been taking Azo, and this will certainly obscure the urine. He has been taking it since yesterday. We will get urinalysis, as well as CT scan to rule out kidney stone potential. We will treat appropriately as indicated. No suspicion of prostatitis at this time based on clinical assessment. 12:[address] scan has returned, mild fluid-filled loops of bowel, no evidence of obstruction. Questionable mild enteric colitis. There is evidence of cystitis. No evidence of urinary calcification. Patient feeling much better, vital signs stable, pain controlled. Patient remains afebrile. Urinalysis shows notable UTI. Will give Keflex for home use, as well as Zofran as needed for nausea. We will give her a bottle of Keflex here and a prescription for home use. Discussed red flags which return. No indication for admission at this time. No evidence of sepsis. I have extensively reviewed the treatment plan and discharge instructions with the patient. I have addressed all patient concerns at this time. The patient was made aware of what symptoms to monitor for that would warrant a return to the emergency department. Discussed the plan with the patient, they demonstrate verbal understanding and agreement with our assessment and plan at this time. The documentation in this chart was dictated using Emer[employer] dictation software. Please excuse any dictation errors. We did send for gonorrhea/chlamydia cultures. We will contact the patient if these return positive. FINDINGS: Lungs: The lungs are normal. There is no evidence of focal pulmonary consolidation. Pleural spaces: There are no pleural effusions present. Heart: The cardiac structures are normal. There is no evidence of pneumothorax. Mediastinal space: A moderate hiatal hernia is present. Liver: There are no focal liver lesions present. There is no evidence of intrahepatic or extrahepatic biliary ductal dilation. Gallbladder and bile ducts: The gallbladder is normal. There is no cholelitiasis, wall thickening or pericholecystic fluid to suggest cholecystitis. Pancreas: There is mild pancreatic atrophy and fatty replacement. Spleen: The spleen is normal. Adrenal glands: The adrenal glands are normal. Kidneys and ureters: The kidneys are normal. Stomach and bowel: There are diffuse fluid filled loops of small bowel and colon with scattered air fluid levels. The bowel loops are mildly distended. No associated bowel wall thickening or inflammatory changes. No evidence of obstruction. Findings most consistent with diffuse enterocolitis. Mild diverticulosis is present in the sigmoid and descending colon. No definitive acute diverticulitis identified. There is no evidence of intestinal obstruction. No diverticulosis is present. Appendix: A normal appendix is identified. There is no evidence of distention or periappendiceal inflammation to suggest appendicitis. Intraperitoneal space: There is a small amount of free fluid seen within the dependent portion of the pelvis. There is no free intraperitoneal air. There are no soft tissue masses or fluid collections. Vasculature: The aorta is normal without evidence of significant atherosclerosis or aneurysmal disease. The peripheral arterial vascular system visualized is unremarkable. The portal venous system visualized is unremarkable. The venous system visualized is unremarkable. Lymph nodes: There is no evidence of lymphadenopathy. Urinary bladder: There is thickening of the bladder wall and indistinctness of the serosal surface. Consider cystitis. Reproductive: The prostate is normal. Bones/joints: The skeletal structures and soft tissues show no evidence of fracture or other acute processes. Soft tissues: The extra-abdominal soft tissues are normal. IMPRESSION: 1. There are diffuse fluid filled loops of small bowel and colon with scattered air fluid levels. The bowel loops are mildly distended. No associated bowel wall thickening or inflammatory changes. No evidence of obstruction. Findings most consistent with diffuse enterocolitis. 2. There is thickening of the bladder wall and indistinctness of the serosal surface. Consider cystitis. 3. There is a small amount of free fluid seen within the dependent portion of the pelvis. 4. No urinary associated calculi or dilation identified. Thank you for allowing us to participate in the care of your patient. Dictated and Authenticated by: Alexander Becerra MD 12/20/2020 12:39 AM Eastern Time ([place] & [place]) HPI General Date/Time Provider Initiated Documentation: 12/19/20 22:52. HPI Narrative: This is a pleasant 40-year-old male with a past medical history of previous diverticulosis, SVT, inguinal hernia repair who presents today for evaluation of urinary frequency and burning. Patient states that for the last 12 to 24 hours he has had burning with urination, increased frequency, noticed a small amount of blood. He denies any flank or back pain but does admit to sensation of tightening in his back. He did have an episode of vomiting prior to arrival but otherwise denies any abdominal pain. No chest pain or shortness of breath. No history of STDs. Patient denies any anal intercourse, states that he has been with the same partner for quite some time. He denies any discharge from his penis. Patient denies any history of kidney stones but does state that he had a urinary tract infection before in the past. He states this feels identical to his last UTI. Related Data Home Medications Medication Instructions Recorded Confirmed omeprazole magnesium [Prilosec OTC] 20 mg PO DAILY tab 06/01/17 12/19/20 metoprolol succinate 25 mg 25 mg PO DAILY #90 tab 04/17/20 12/19/20 tablet,extended release 24 hr sildenafil 50 mg tablet 50 mg PO DAILY PRN #14 tab 08/11/20 12/19/20 buprenorphine 2 mg-naloxone 0.5 mg 2 tab SUBLINGUAL BID #112 tab MDD 09/24/20 12/19/20 sublingual tablet 8 mg buprenorphine clonazepam 0.5 mg tablet 0.5 mg PO TID PRN #90 tab MDD 1.5 09/24/20 12/19/20 mg cephalexin 500 mg PO QID 7 Days #28 cap 12/20/20 Previous Rx's Medication Instructions Recorded metoprolol succinate 25 mg 25 mg PO DAILY #90 tab 04/17/20 tablet,extended release 24 hr sildenafil 50 mg tablet 50 mg PO DAILY PRN #14 tab 08/11/20 buprenorphine 2 mg-naloxone 0.5 mg 2 tab SUBLINGUAL BID #112 tab MDD 09/24/20 sublingual tablet 8 mg buprenorphine clonazepam 0.5 mg tablet 0.5 mg PO TID PRN #90 tab MDD 1.5 09/24/20 mg cephalexin 500 mg PO QID 7 Days #28 cap 12/20/20 Allergies Allergy/AdvReac Type Severity Reaction Status Date / Time No Known Allergies Allergy Verified 09/24/20 15:42 dairy AdvReac Intermediate n/v, Uncoded 07/02/20 15:53 stomach pain General Stated Complaint: Urinary ANGELINA: 3 Review of Systems All systems reviewed & are unremarkable except as noted in HPI and below [facility] Medical History Anxiety Constipation due to opioid therapy Diverticulosis Incarcerated right inguinal hernia Inguinal [place] [facility] Evaluation of R Inguinal Hernia and future plan for laparoscopic repair. 03/25/2019 [place] [facility] [place]complicated opioid dependence (06/01/17) Surgical History S/P right inguinal hernia repair (04/08/19) lap initial rgt hernia, direct and indirectw/ modifier mes, BARD Family History Mother No problems noted. 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 3.ENT: Atraumatic external nose and ears. Moist MM. Neck: Symmetric, trachea midline, No thyromegaly. 4.CVS: +S1/S2, No murmurs or gallops. Peripheral pulses 2+ and equal in all extremities. Brisk capillary refill in all extremities. 5.RESP: Unlabored respiratory effort. Clear to auscultation bilaterally. No wheezes rales or rhonchi 6.GI: Soft, Nontender/Nondistended, No hepatosplenomegaly. No guarding or rebound. No flank or CVA tenderness. Genital exam demonstrates an unremarkable male genitalia, no discharge at the urethral meatus. Normal testicular exam, normal cremasteric reflex. No pain at McBurney's point. Negative Brown sign. 7.MSK: Normocephalic/Atraumatic, Extremities w/o deformity or ttp No cyanosis or clubbing, Normal movement of all extremities 8.Skin: Warm, Dry. No rashes or lesions. 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 Sensation grossly intact, no focal neurologic deficits. 10.Psych: (AAO) x3. Appropriate mood and affect Course Vital Signs Vital signs: Vital Signs Temperature 36.3 C L 12/19/20 22:59 Pulse 99 H 12/19/20 22:59 Respiratory Rate 18 12/19/20 22:59 Blood Pressure 149/92 H 12/19/20 22:59 Pulse Oximetry 97 12/19/20 22:59 Temperature 36.3 C L 12/19/20 22:59 Temperature Source Temporal Artery Scan 12/19/20 22:59 Pulse 99 H 12/19/20 22:59 Respiratory Rate 18 12/19/20 22:59 Respiratory Effort 12/19/20 23:08 Blood Pressure 149/92 H 12/19/20 22:59 Blood Pressure Position Supine 12/19/20 22:59 Pulse Oximetry 97 12/19/20 22:59 Oxygen Delivery Method Room Air 12/19/20 22:59 Oxygen Flow Rate 0 12/19/20 22:59
[2020-12-19 23:30] LABS: Bilirubin Moderate (Negative); Blood Moderate (Negative); Clarity Cloudy (Clear); Glucose 250 mg/dL (Negative); Ketones 15 mg/dL (Negative); Leukocyte Esterase Large (Negative); Nitrite Positive (Negative); Urobilinogen >=8.0 EU/dL (Up TO 0.2); pH 6.5 (5-8)
[2020-12-19 23:40] LABS: WBC >50 HPF (0-5)
[2020-12-19 23:41] LABS: C & S Indicated? Yes
[2020-12-19 23:57] VITALS: BP 131/73; PULSE 82; RESP 18; TEMP 36.5; O2SAT 95
[2020-12-19] MEDS: Cephalexin 500 MG CAP, 4 CAPS/BTL PO (23:58)
[2020-12-19] MEDS: Ondansetron O.D.T. 4 MG TABEF, 3 TABS/BTL PO (23:59)
--- NOTE | 2020-12-20 00:39 | DI.VRAD_ITS ---
PROCEDURE INFORMATION: Exam: CT Abdomen And Pelvis Without Contrast Exam date and time: 12/19/2020 11:03 PM Age: 40 years old Clinical indication: Patient HX: Hematuria, R/O stone TECHNIQUE: Imaging protocol: Computed tomography of the abdomen and pelvis without contrast. COMPARISON: CT ABDOMEN PELVIS W 12/03/2018 5:30 PM FINDINGS: Lungs: The lungs are normal. There is no evidence of focal pulmonary consolidation. Pleural spaces: There are no pleural effusions present. Heart: The cardiac structures are normal. There is no evidence of pneumothorax. Mediastinal space: A moderate hiatal hernia is present. Liver: There are no focal liver lesions present. There is no evidence of intrahepatic or extrahepatic biliary ductal dilation. Gallbladder and bile ducts: The gallbladder is normal. There is no cholelitiasis, wall thickening or pericholecystic fluid to suggest cholecystitis. Pancreas: There is mild pancreatic atrophy and fatty replacement. Spleen: The spleen is normal. Adrenal glands: The adrenal glands are normal. Kidneys and ureters: The kidneys are normal. Stomach and bowel: There are diffuse fluid filled loops of small bowel and colon with scattered air fluid levels. The bowel loops are mildly distended. No associated bowel wall thickening or inflammatory changes. No evidence of obstruction. Findings most consistent with diffuse enterocolitis. Mild diverticulosis is present in the sigmoid and descending colon. No definitive acute diverticulitis identified. There is no evidence of intestinal obstruction. No diverticulosis is present. Appendix: A normal appendix is identified. There is no evidence of distention or periappendiceal inflammation to suggest appendicitis. Intraperitoneal space: There is a small amount of free fluid seen within the dependent portion of the pelvis. There is no free intraperitoneal air. There are no soft tissue masses or fluid collections. Vasculature: The aorta is normal without evidence of significant atherosclerosis or aneurysmal disease. The peripheral arterial vascular system visualized is unremarkable. The portal venous system visualized is unremarkable. The venous system visualized is unremarkable. Lymph nodes: There is no evidence of lymphadenopathy. Urinary bladder: There is thickening of the bladder wall and indistinctness of the serosal surface. Consider cystitis. Reproductive: The prostate is normal. Bones/joints: The skeletal structures and soft tissues show no evidence of fracture or other acute processes. Soft tissues: The extra-abdominal soft tissues are normal. IMPRESSION: 1. There are diffuse fluid filled loops of small bowel and colon with scattered air fluid levels. The bowel loops are mildly distended. No associated bowel wall thickening or inflammatory changes. No evidence of obstruction. Findings most consistent with diffuse enterocolitis. 2. There is thickening of the bladder wall and indistinctness of the serosal surface. Consider cystitis. 3. There is a small amount of free fluid seen within the dependent portion of the pelvis. 4. No urinary associated calculi or dilation identified. Dictated and Authenticated by: Alexander Becerra MD. Ordering:CASEY Mcdonough MD
[2020-12-20 00:54] VITALS: BP 136/76; PULSE 88; RESP 18; TEMP 36.7; O2SAT 97
[2020-12-21 16:10] LABS: Chlamydia Result Negative (Negative); GC Result Negative (Negative)
== END 2020-12-20 00:54 | disposition home or self-care (01) ==
PROVIDERS: Emergency Provider Student in an Organized Health Care Education/Training Program; PCP Family Medicine
DX: N39.0 Urinary tract infection, site not specified (principal); B96.20 Unspecified Escherichia coli [E. coli] as the cause of diseases classified elsewhere
CPT/HCPCS: 87077; 87491; 87591; 99284; 74176; 81003; 81015; 87086; 87186; 99283

== ENCOUNTER 2021-01-16 10:47 | Emergency (ER) | payer OTHER, SELFPAY ==
[2021-01-16 10:55] VITALS: BP 126/74; PULSE 69; RESP 18; TEMP 36.6; O2SAT 98
--- NOTE | 2021-01-16 11:19 | W.ED.GENAD ---
Discharge Plan Disposition Patient Disposition: HOME Condition: Stable Discharge Details Clinical Impression: Acute UTI Primary Care Provider: Yang Bejarano ED Provider: Lizabeth Yousif Home Meds and New Rx's Prescriptions: New cephalexin 500 mg tablet 500 mg PO QID 7 Days Qty: 28 RF: 0 Continued buprenorphine-naloxone 2-0.5 mg tablet, sublingual 2 tab sublingual BID MDD 8 mg buprenorphine Qty: 112 RF: 2 clonazepam 0.5 mg tablet 0.5 mg PO TID MDD 1.5 mg PRN (Reason: anxiety) Qty: 90 RF: 2 omeprazole magnesium [Prilosec OTC] 20 MG tablet,delayed release (DR/EC) 20 mg PO DAILY RF: 0 metoprolol succinate 25 mg tablet extended release 24 hr 25 mg PO DAILY Qty: 90 RF: 3 sildenafil 50 mg tablet 50 mg PO DAILY PRN (Reason: sexual activity) Qty: 14 RF: 6 Discharge Instructions Instructions: Urinary Tract Infection in Men (ED) Additional Instructions: You have a recurrence of a urinary tract infection. Please continue to encourage hydration. Please take the antibiotics as prescribed. Even if symptoms improve, please take the entire course. If you develop back pain, fever/chills or other new/worsening symptoms please seek care urgently once again. Please follow-up with your primary care any discussed your current urinary tract infection in the next 1 to 2 weeks. You STD testing are pending, we will call you with any positive results. Please abstain from sexual activities until results are back. Practice safe sex. Referrals: Yang Bejarano DO [Primary Care Provider] - Discharge Data Discharge Date/Time-TO BE ENTERED AT DEPARTURE: 01/16/21 14:06 Medical Decision Making Patient is a pleasant 40-year-old male presenting today with complaints concern for return UTI. Patient was here on 12/20/2020 and diagnosed with acute UTI. Patient states that symptoms did not improve after being treated with Keflex. However, states that symptoms began to recur once again. States that he has had a low level feeling of fatigue with some intermittent fevers. No fevers in the past week. States that a few hours prior to arrival today he began having dysuria, increased frequency, urgency and hematuria. Denies any other unusual bleeding. States that he was last sexually active 2 weeks ago. Patient did have GC and Chlamydia testing completed when he was here last visit UTI, these are negative. However, he is concerned that there may have been infidelity and is not sure what he was exposed to since last tested. He states that he did have some testicular discomfort associated with intercourse. She denies anything into his penis. Denies any anal intercourse. Denies any pain with masturbation. No unusual penile discharge. Denies any flank pain. On exam, patient appears non toxic. Normal CV and pulmonary exam. No petechia, unusual bruising noted. Abdomen benign. No CVA tenderness. No tenderness with palpation of prostate, normal size and density. Particularly as the patient has had recurrence of UTI symptoms and is a male, will repeat labs. He does not have any CVA tenderness, prostate tenderness or history to suggest stone. He had imaging last month. I do not feel that repeat is necessary. Will give hydration. He reports poor tolerance of pyridium, will hold off on this. UA concerning for UTI. Patient doss sensitive from recent UTI. Patient has urinated here again and his hematuria is cleared signicantly from his initial reported symptoms. Sent dirty urine for GC/Chlamydia testing Labs reviewed. No leukocytosis. Anemic but no signficant drop compared to last month. CMP without signficant abnormality. Discussed findings with patient. Unclear why he is having recurrent UTI that he has not had historically. Advised he may benefit from f/u with urology. Encouraged hydration. He is able to hydrate orally now. Will start on Keflex. Strict return precations discussed. Advised close f/u with PCP. All of his questions and concerns were addressed, he is in agreement with this plan. HPI General Mode of arrival: ambulatory. Date/Time Provider Initiated Documentation: 01/16/21 11:18. Limitations to Documentation: no limitations. Information obtained by: patient, RN notes reviewed and old records reviewed. History of Present Illness 40 year old M presents to the emergency department with the chief complaint of hematuria, frequency, urgency, described as moderate and similar to prior episodes, Quality is described as burning, and is localized to the genitals. Patient reports no radiation. Patient started experiencing this hour(s) and it has been constant. No relieving factors improve symptom(s), No exacerbating factors reported . Patient notes denies chest pain, cough, diaphoresis, fever/chills, loss of appetite, nausea/vomiting, rash and shortness of breath. Patient did receive the following treatments prior to arrival, none Related Data Home Medications Medication Instructions Recorded Confirmed omeprazole magnesium [Prilosec OTC] 20 mg PO DAILY tab 06/01/17 01/16/21 metoprolol succinate 25 mg 25 mg PO DAILY #90 tab 04/17/20 01/16/21 tablet,extended release 24 hr sildenafil 50 mg tablet 50 mg PO DAILY PRN #14 tab 08/11/20 01/16/21 buprenorphine 2 mg-naloxone 0.5 mg 2 tab SUBLINGUAL BID #112 tab MDD 12/31/20 01/16/21 sublingual tablet 8 mg buprenorphine clonazepam 0.5 mg tablet 0.5 mg PO TID PRN #90 tab MDD 1.5 12/31/20 01/16/21 mg cephalexin 500 mg PO QID 7 Days #28 tab 01/16/21 Previous Rx's Medication Instructions Recorded metoprolol succinate 25 mg 25 mg PO DAILY #90 tab 04/17/20 tablet,extended release 24 hr sildenafil 50 mg tablet 50 mg PO DAILY PRN #14 tab 08/11/20 buprenorphine 2 mg-naloxone 0.5 mg 2 tab SUBLINGUAL BID #112 tab MDD 12/31/20 sublingual tablet 8 mg buprenorphine clonazepam 0.5 mg tablet 0.5 mg PO TID PRN #90 tab MDD 1.5 12/31/20 mg cephalexin 500 mg PO QID 7 Days #28 tab 01/16/21 Allergies Allergy/AdvReac Type Severity Reaction Status Date / Time No Known Allergies Allergy Verified 09/24/20 15:42 dairy AdvReac Intermediate n/v, Uncoded 01/16/21 10:58 stomach pain General Stated Complaint: Urinary ANGELINA: 4 Review of Systems Constitutional Constitutional: Reports as per HPI, Denies chills, Denies fever(s) and Denies poor appetite Cardiovascular Cardiovascular: Denies chest pain Respiratory Respiratory: Denies cough Gastrointestinal Gastrointestinal: Denies abdominal pain, Denies change in bowel habits, Denies nausea and Denies vomiting Genitourinary Genitourinary: Reports as per HPI Musculoskeletal Musculoskeletal: Reports as per HPI and Denies back pain Integumentary/Breasts Skin/Breast: Reports as per HPI and Denies rash Hematologic/Lymphatic Hematologic/Lymphatic: Denies easy bleeding, Denies easy bruising and Denies lymphadenopathy [facility] Medical History Anxiety Constipation due to opioid therapy Diverticulosis Incarcerated right inguinal hernia Inguinal hernia 01/18/19 [facility] [place] General Surgery for Evaluation of R Inguinal Hernia and future plan for laparoscopic repair. 03/25/2019 pre-anesthesia appoint at [facility] [place] Uncomplicated opioid dependence (06/01/17) Surgical History S/P right inguinal hernia repair (04/08/19) lap initial rgt hernia, direct and indirectw/ modifier mes, BARD Family History Mother No problems noted. Father Diabetes Heart disease Social History Smoking/Tobacco Use Status: Former Tobacco Use Smoking risk assessment performed?: Yes Alcohol Intake: never Drug use: Current Sobriety Substance use type: former substance user and opiates Household members: children Housing: house Number of Children: 2 Communication Needs: None current occupation: works [employer] What type of physical activity do you participate in: none Seatbelt use: always Drive intox or ride w/intox emergency detail driver: No Working smoke detector in home: Yes Fire extinguisher in home: Yes Carbon monox detector in home: Yes Do you feel safe at home: Yes Do you feel safe in your relationship?: Yes Exam Const General: cooperative, healthy appearing, comfortable, no acute distress, well developed and well groomed Nutritional Appearance: average body habitus and well nourished Orientation: alert and awake Resp Effort & Inspection: normal respiratory effort and no respiratory distress Auscultation: clear to auscultation bilaterally, no rales, no rhonchi and no wheezes Cardio Rate: regular rate Rhythm: regular rhythm Heart Sounds: S1 normal and S2 normal GI Inspection: normal to inspection Palpation: soft, no hepatosplenomegaly, not firm, no guarding, not rigid and nontender Rectal Exam: visual inspection normal, normal sphincter tone, prostate normal and No prostate abnormal Back/Spine/Pelvis Back: no CVA tenderness Skin General skin exam: no rashes or lesions noted Trauma: no lacerations or abrasions Neuro General: patient alert and patient awake Cognition: normal cognition Speech: speech normal Gait: normal gait Psych Appearance: grossly normal and well kempt Mental Status: mental status grossly normal Speech and Movement: speech and movement normal Course Vital Signs Vital signs: Vital Signs Temperature 36.6 C 01/16/21 10:55 Pulse 69 01/16/21 10:55 Respiratory Rate 18 01/16/21 10:55 Blood Pressure 126/74 01/16/21 10:55 Pulse Oximetry 98 01/16/21 10:55 Temperature 36.6 C 01/16/21 10:55 Temperature Source Temporal Artery Scan 01/16/21 10:55 Pulse 69 01/16/21 10:55 Respiratory Rate 18 01/16/21 10:55 Respiratory Effort Non-Labored 01/16/21 11:07 Blood Pressure 126/74 01/16/21 10:55 Blood Pressure Position Sitting 01/16/21 10:55 Pulse Oximetry 98 01/16/21 10:55 Oxygen Delivery Method Room Air 01/16/21 10:55 Oxygen Flow Rate 0 01/16/21 10:55
[2021-01-16] MEDS: Normal Saline 1,000 ML 1000 ML IV (11:45)
[2021-01-16 12:03] LABS: Abs Immature Grans 0.02 10^3/uL (0.0-0.06); Absolute Basophil Count 0.06 10^3/uL (0.0-0.2); Absolute Eosinophil Count 0.07 10^3/uL (0.0-0.7); Absolute Lymphocyte Count 1.57 10^3/uL (1.2-3.4); Absolute Monocyte Count 0.67 10^3/uL (0.1-0.8); Absolute Neutrophil Count 6.52 10^3/uL (1.2-6.7); Basophils % 0.7; Eosinophils % 0.8; HCT 35.9 % (40.0-50.0); HGB 11.3 g/dL (13.5-17.5); Immature Grans % 0.2; Lymphocytes % 17.6; MCH 27.6 pg (27.0-33.0); MCHC 31.5 % (32.0-36.0); MCV 87.6 fL (80-95); MPV 9.6 fL (8.0-11.0); Monocytes % 7.5; Neutrophils % 73.2; Nucleated RBC 0 %; Platelet Count 340 10^3/uL (130-400); RDW 12.8 % (11.8-14.1); RDW-SD 40.8 fL; WBC 8.91 10^3/uL (4.4-10.8)
[2021-01-16 12:15] LABS: Bilirubin Negative (Negative); Blood Large (Negative); Glucose Negative (Negative); Ketones Negative (Negative); Leukocyte Esterase Trace (Negative); Nitrite Negative (Negative); Specific Gravity >= 1.030 (1.005-1.025); Urobilinogen 0.2 EU/dL (Up TO 0.2)
[2021-01-16 12:25] LABS: Bacteria Many HPF (Negative); C & S Indicated? Yes; Casts Negative LPF (Negative); Crystals Negative HPF (Negative); Epithelial Cells Negative HPF (Negative); Mucus Negative (Negative); RBC >50 HPF (0-2); WBC >50 HPF (0-5)
[2021-01-16 12:46] LABS: ALT 15 U/L (16-63); AST 14 U/L (15-37); Albumin 3.8 g/dL (3.4-5.0); Alkaline Phosphatase 70 U/L (46-116); Anion Gap 6.7 mmol/L (3-11); BUN 16 mg/dL (7-18); Bilirubin, Total 0.4 mg/dL (0.2-1.0); CO2 31.3 mmol/L (21.0-32.0); CREATININE 1.1 mg/dL (0.70-1.30); Calcium 9.1 mg/dL (8.5-10.1); Chloride 105 mmol/L (98-107); Glucose 86 mg/dL (74-106); Magnesium 2.2 mg/dL (1.8-2.4); Potassium 3.7 mmol/L (3.5-5.1); Sodium 143 mmol/L (136-145)
[2021-01-16 13:34] VITALS: BP 145/84; PULSE 65; RESP 16; TEMP 37.1; O2SAT 97
[2021-01-20 07:52] LABS: Chlamydia Result Negative (Negative); GC Result Negative (Negative)
== END 2021-01-16 14:07 | disposition home or self-care (01) ==
PROVIDERS: Emergency Provider Physician Assistant; PCP Family Medicine
DX: N39.0 Urinary tract infection, site not specified (principal); R31.9 Hematuria, unspecified; Z87.440 Personal history of urinary (tract) infections
CPT/HCPCS: 36415; 80053; 87491; 87591; 96360; 99284; 81003; 81015; 83735; 85025; 87086; 99283

== ENCOUNTER 2021-03-17 15:01 | Outpatient (REF) | payer OTHER, SELFPAY ==
[2021-03-17 11:41] LABS: HCT 39.7 % (40.0-50.0); MCH 28.8 pg (27.0-33.0); MCHC 32.7 % (32.0-36.0); MCV 87.8 fL (80-95); MPV 10.1 fL (8.0-11.0); Platelet Count 305 10^3/uL (130-400); RBC 4.52 10^6/uL (4.36-5.78); RDW 12.7 % (11.8-14.1); RDW-SD 40.9 fL; WBC 7.14 10^3/uL (4.4-10.8)
[2021-03-17 12:01] LABS: ALT 19 U/L (16-63); AST 15 U/L (15-37); Albumin 4.7 g/dL (3.4-5.0); Alkaline Phosphatase 69 U/L (46-116); Anion Gap 7.8 mmol/L (3-11); BUN 32 mg/dL (7-18); Bilirubin, Total 0.7 mg/dL (0.2-1.0); CO2 32.2 mmol/L (21.0-32.0); CREATININE 1.1 mg/dL (0.70-1.30); Calcium 9.4 mg/dL (8.5-10.1); Chloride 104 mmol/L (98-107); Glucose 112 mg/dL (74-106); Sodium 144 mmol/L (136-145); Total Protein 8.6 g/dL (6.4-8.2)
== END 2021-03-17 15:02 | disposition home or self-care (01) ==
LOC: LBN 15:01
PROVIDERS: PCP Family Medicine; Visit Provider Nurse Practitioner Gerontology
DX: R11.2 Nausea with vomiting, unspecified (principal); R63.4 Abnormal weight loss
CPT/HCPCS: 80053; 85027

== ENCOUNTER 2021-03-23 16:05 | Outpatient (REF) | payer OTHER, SELFPAY ==
[2021-03-25 11:42] LABS: COVID-19 RT-PCR UVMMC Result Negative (Negative)
== END 2021-03-23 16:06 | disposition home or self-care (01) ==
LOC: LBN 16:05
PROVIDERS: PCP Family Medicine; Visit Provider Nurse Practitioner
DX: R21 Rash and other nonspecific skin eruption (principal); R50.9 Fever, unspecified; Z20.822 Contact with and (suspected) exposure to COVID-19
CPT/HCPCS: U0003

== ENCOUNTER 2021-05-03 02:21 | Outpatient (CLI) | payer OTHER, SELFPAY ==
[2021-05-03 10:52] LABS: Source Nasal/Nares
[2021-05-03 15:03] LABS: COVID-19 PCR Negative (Negative)
== END 2021-05-03 02:22 | disposition home or self-care (01) ==
PROVIDERS: PCP Family Medicine; Visit Provider Surgery
DX: Z20.822 Contact with and (suspected) exposure to COVID-19 (principal); Z01.818 Encounter for other preprocedural examination
CPT/HCPCS: 87635

== ENCOUNTER 2021-05-04 08:13 | Day surgery (SDC) | payer OTHER, SELFPAY ==
[2021-05-04 08:16] VITALS: BP 127/88; PULSE 63; RESP 18; TEMP 36.7; O2SAT 98
[2021-05-04] MEDS: Lactated Ringers 1,000 ML 80 ML IV (08:34)
[2021-05-04 08:38] LABS: HCT 35.4 % (40.0-50.0); HGB 11.7 g/dL (13.5-17.5); MCHC 33.1 % (32.0-36.0); MCV 87.6 fL (80-95); MPV 9.9 fL (8.0-11.0); Platelet Count 251 10^3/uL (130-400); RBC 4.04 10^6/uL (4.36-5.78); RDW 12.7 % (11.8-14.1); RDW-SD 40.9 fL; WBC 5.35 10^3/uL (4.4-10.8)
--- NOTE | 2021-05-04 08:52 | W.ANESPRE ---
General Info Date of Service Date Performed: 05/04/21 Height: 5 ft 10 in Weight: 74.9 kg Body Mass Index (BMI): 23.6 Surgical Procedure: Operation Date: 05/04/21 09:05 Proposed Procedure Side Surgeon p Gastroscopy Emeli Silverman, DO Meds Allergies and Home Medications Allergies Allergy/AdvReac Type Severity Reaction Status Date / Time dairy AdvReac Intermediate n/v, Uncoded 05/04/21 08:23 stomach pain Home Medication Medication Instructions Recorded sildenafil 50 mg tablet 50 mg PO DAILY PRN #14 tab 08/11/20 buprenorphine 2 mg-naloxone 0.5 mg 2 tab SUBLINGUAL BID #112 tab MDD 03/02/21 sublingual tablet 8 mg buprenorphine clonazepam 0.5 mg tablet 0.5 mg PO TID PRN #90 tab MDD 1.5 03/02/21 mg metoprolol succinate 25 mg 25 mg PO DAILY #90 tab 04/05/21 tablet,extended release 24 hr omeprazole 20 mg capsule,delayed See Rx Instructions .ROUTE 04/27/21 release .COMPLEX #60 capsule Current Visit Medications: Current Medications Generic Name Dose Route Start Last Admin Trade Name Freq PRN Reason Stop Dose Admin Hyoscyamine Sulfate 0.125 mg 05/03/21 11:23 Hyoscyamine 0.125 Mg Sl/Oral/Chew SL DIRECTED PRN Ringer's Solution 1,000 mls @ 80 mls/hr 05/04/21 06:00 05/04/21 08:34 IV 06/02/21 23:59 80 mls/hr INFUSION ALAN Administration IV Miscellaneous Supplies 1 each 05/04/21 06:00 Iv Access IV 06/02/21 23:59 DIRECTED ALAN Ondansetron HCl 4 mg 05/03/21 11:23 Ondansetron 4 Mg/2 Ml Vial IVP Q4H PRN PRN Nausea / Vomiting Sodium Chloride 0 ml 05/04/21 06:00 Normal Saline Flush 10 Ml Syr IV 06/02/21 23:59 PRN PRN Sodium Chloride 0 ml 05/04/21 06:00 Normal Saline 10 Ml Vial IJ 06/02/21 23:59 DIRECTED PRN Sterile Water 0 ml 05/04/21 06:00 Water,Injection,Sterile 10 Ml Vial IJ 06/02/21 23:59 DIRECTED PRN PFSH Active Problems Active Problems: Problem Status Onset Code Acute UTI N39.0 SVT (supraventricular tachycardia) I47.1 Inguinal hernia K40.90 Constipation due to opioid therapy K59.03, T40.2X5A Anxiety F41.9 Diverticulosis K57.90 Uncomplicated opioid dependence 06/01/17 F11.20 Medical History Medical History Incarcerated right inguinal hernia Surgical History Surgical History S/P right inguinal hernia repair (04/08/19) lap initial rgt hernia, direct and indirectw/ modifier mes, BARD Tobacco Smoking/Tobacco Use Status: Former Tobacco Use Alcohol Alcohol Intake: never Substance Use Substance use: Current Sobriety Substance use type: former substance user and opiates Details: sometimes' smokes/vapes marijuana. Vital Signs and Lab Results Vital Signs Most Recent Vital Signs in EMR: Most Recent Vital Signs Temp Pulse Resp BP Pulse Ox 36.7 C 63 18 127/88 98 05/04/21 08:16 05/04/21 08:16 05/04/21 08:16 05/04/21 08:16 05/04/21 08:16 Lab Results Result Diagrams: 05/04/21 08:30 Blood Type / Crossmatch: No Data to Display Complete Blood Count: White Blood Count 5.35 10^3/uL (4.4-10.8) 05/04/21 08:30 05/04/21 Red Blood Count 4.04 10^6/uL (4.36-5.78) L 05/04/21 08:30 05/04/21 Hemoglobin 11.7 g/dL (13.5-17.5) L 05/04/21 08:30 05/04/21 Hematocrit 35.4 % (40.0-50.0) L 05/04/21 08:30 05/04/21 Platelet Count 251 10^3/uL (130-400) 05/04/21 08:30 05/04/21 Complete Metabolic Panel: No Data to Display Liver Function Panel: No Data to Display Coagulation Panel: No Data to Display Cardiac Panel: No Data to Display Arterial Blood Gas: No Data to Display Venous Blood Gas: No Data to Display Pancreas Panel: No Data to Display Thyroid Panel: No Data to Display Infectious Disease: Coronavirus (COVID-19)(PCR) Negative (Negative) 05/03/21 09:44 05/03/21 Coronavirus 2019 Source Nasal/Nares 05/03/21 09:44 05/03/21 Blood Cultures: No Data to Display Toxicology Panel: No Data to Display Imaging and Studies Imaging and Studies Study information below may be from another EMR and interpreted by another provider. Please see original notes in EMR for more complete details. Stress Test Summary: Stress results: Maximal heart rate during stress was 164bpm (90% of maximal predicted heart rate). The maximal predicted heart rate was 183bpm. The target heart rate was achieved. The rate-pressure product for the peak heart rate and blood pressure was 14973aq Hg/min. Stress ECG: TREADMILL PORTION OF STRESS TEST ENDED IN 9 MINUTES & 1 SECOND BECAUSE OF PATIENT FATIGUE NORMAL HEART RATE RESPONSE TO EXERCISE SYSTOLIC BLOOD PRESSURE DROPPED 30 mmHg UPON IMMEDIATE RECOVERY. OTHERWISE NORMAL BP RESPONSE TO EXERCISE MAX HR = 164 % OF TARGET = 89 NO ECTOPY APPROXIMATE METS ACHIEVED = 10.16 NO ANGINA NO SIGNIFICANT ST SEGMENT CHANGES MILDLY DIMINISHED FUNCTIONAL CAPACITY FOR EXERCISE. 01/19/18 Echocardiogram Summary: Summary: 1. Left ventricle: The cavity size was normal. Wall thickness was normal. Systolic function was normal. The estimated ejection fraction was 55-60%. Wall motion was normal; there were no regional wall motion abnormalities. 2. Aortic valve: There was trivial regurgitation. 3. Right ventricle: The cavity size was normal. Wall thickness was normal. Systolic function was normal. 04/08/16 Anesthesia Assessment and Plan Anesthesia History Personal History: No History of Anesthesia Complications Family History: No Family History of Anesthesia Complications Exercise Tolerance Exercise Tolerance: Metabolic Equivalents>4 Pertinent Negatives Pertinent Negatives: No Symptoms of GERD, No Major Cardiovascular Symptoms or Complaints, No Major Pulmonary Symptoms or Complaints and No History of CVA/TIA Cardiac & Pulmonary Exam Cardiac Exam: Normal S1/S2 Heart Sounds Pulmonary Exam: Clear Bilateral Breath Sounds Implantable Cardiac Device Does patient have a Pacemaker or an ICD?: No Airway Exam Known Difficult Airway: No Mallampati Class: 3 Mouth Opening: Normal (> 3cm) Thyromental Distance: Greater than 3 cm Facial Hair: Full Irwin Neck Range of Motion: Full ROM Neck Circumference: Normal Teeth Condition: Normal Dentition ASA Classification ASA Score: ASA 2 Emergency Case?: No NPO Status NPO Status: NPO Clears >2 hours, Solids >8 hours Anesthesia Plan Resuscitation Status: Full Code Anesthesia Technique: General Anesthesia Airway Planned: Natural Airway Monitors Used: Standard Monitors
[2021-05-04 08:58] VITALS: BMI 23.6
[2021-05-04 09:16] LABS: Iron 85 ug/dL (65-175); Total Iron Binding Capacity 317 ug/dL (250-450); Transferrin Sat 27 % (20-55)
--- NOTE | 2021-05-04 09:29 | STOM_PTH ---
PATIENT: Edwar Bond LOC: [facility] U#:[id number] AGE/SX: 41/M ROOM: RE05/04/[address]: Emeli Silverman : 1980 BED: DIS: 05/04/2021 SPEC #: [id number] RECD: 05/04/21 12:26 STATUS: RHIANNON RE #: [id number] ISHMAEL: 05/04/21 09:[address]: Emeli Silverman DEPT: Surgical Specimen RECD BY: Nevin Mcdonald ENTERED: 05/04/21 12:28 SP TYPE: STOMACH OTHR DR: Yang Bejarano DO Tissues: 1 - BIOPSY BOWEL 2 - BIOPSY BOWEL 3 - STOMACH BIOPSY 4 - STOMACH BIOPSY 5 - STOMACH BIOPSY 6 - ESOPHAGUS BIOPSY 7 - ESOPHAGUS BIOPSY Procedures: GROSS AND MICRO LEVEL 4 Comments: [id number]
[2021-05-04 09:40] VITALS: BP 119/65; PULSE 55; RESP 14; TEMP 36.2; O2SAT 95
--- NOTE | 2021-05-04 09:48 | W.PM.ENDDOP ---
Date of service: 05/04/21 Time of Service: 09:52 Endoscopy Report DATE OF PROCEDURE: 05/04/21 PRE-OP DIAGNOSIS: epigatric pain/anemia POST-OP DIAGNOSIS: other (hiatal hernia ) SURGEON: Emeli Silverman ANESTHESIA TYPE: General:No Airway ESTIMATED BLOOD LOSS: 2 PATHOLOGY: other COMPLICATIONS: None DISPOSITION: same day PROCEDURE DESCRIPTION: After informed consent was obtained the patient was take to the procedure room and placed in a supine position. Monitors were applied and a time out was done. The patients name, date of , procedure type, allergies to medications and metal in their body was reviewed. A bite block was placed and the patient was sedated. Once sedated and comfortable the gastroscope was advanced through the oropharynx which was grossly normal into the esophagus. The proximal and mid-esophagus were nl. In the distal esophagus there was no esophageal erosions, varices, diverticula or stricture apparent. The scope was advanced into the stomach and through the pylorus into the 3rd portion of the duodenum. The duodenum was noted to be nl Biopsies were done, all specimens are retrieved and no bleeding is noted.. The scope was retracted back into the stomach and biopsies were done to rule out H. pylori. There is maybe some mild patchy erythema at the antrum. were no ulcers. The scope was retroflexed. The cardia and fundus were noted to be normal. He has a quite patulous hiatus. He also has a sliding-type hiatal hernia at least 3 to 4 cm. There is no signs of any esophagitis or erosions. Scope was retracted back into the esophagus and biopsies were done of the GE junction to rule out Pruett's. The Z line was regular. The displaced GE junction was at 36 cm. In the distal esophagus is at 34 cm. And the the scope was removed and the patient was woken up and taken back to [facility] in stable condition.
[2021-05-04] MEDS: IRON SUCROSE COMPLEX 200 MG in Normal Saline 100 ML 400 MG IVPB (09:50)
--- NOTE | 2021-05-04 09:56 | W.PM.DSUDISC ---
Discharge Plan Disposition Patient Disposition: HOME Condition: Good Discharge Details Reason For Visit: EGD Attending Provider: Emeli Silverman Primary Care Provider: Yang Bejarano Home Meds and New Rx's Prescriptions: New pantoprazole [Protonix] 40 mg tablet,delayed release (DR/EC) 40 mg PO DAILY Qty: 90 4RF Continued buprenorphine-naloxone 2-0.5 mg tablet, sublingual 2 tab sublingual BID MDD 8 mg buprenorphine Qty: 112 2RF clonazepam 0.5 mg tablet 0.5 mg PO TID MDD 1.5 mg PRN (Reason: anxiety) Qty: 90 2RF sildenafil 50 mg tablet 50 mg PO DAILY PRN (Reason: sexual activity) Qty: 14 6RF Rx Instructions: administer 30 minutes to 4 hours before activity metoprolol succinate 25 mg tablet extended release 24 hr 25 mg PO DAILY Qty: 90 3RF Discontinued omeprazole 20 mg capsule,delayed release(DR/EC) See Rx Instructions .ROUTE .COMPLEX Qty: 60 0RF Dose Instruction: TAKE ONE CAPSULE BY MOUTH TWICE A DAY FOR BLACK STOOLS Rx Instructions: TAKE ONE CAPSULE BY MOUTH TWICE A DAY FOR BLACK STOOLS Discharge Instructions Additional Instructions: Post EGD Instruction ? ?You had anesthesia for your EGD/stomach scope today.? For your safety, please do the following for the next twenty-four (24) hours: Do Not operate a motor vehicle (car, truck, motorcycle, etc.) Do Not drink alcoholic beverages or use any recreational drugs for the first 24 hours or while taking pain medications. The medications in your body may have a reaction that can be dangerous. Do Not make any important decisions or sign any important papers ? You have just had a gastroscopy (EGD) or upper GI tract examination. It is important for your smooth recovery that you carefully follow the recommendations below. Do not hesitate to call if any questions should arise about your anesthesia, condition, or care. -Symptoms you may experience during the next 24 hours: ?1. Mild abdominal pain or excessive gas or a bloated feeling which improves with rest, liquids, eating? slightly, and walking as tolerated. 2. Drowsiness and/or forgetfulness because of the medications you were given. ?3. Throat numbness for about 1 hour. 4. A sore throat which you can treat with throat lozenges or by gargling with salt water 4-5 times a day. 5. Redness at the site of your IV which you can treat with warm compresses. ? SPECIAL INSTRUCTIONS: 1. You may resume your previous diet in one hour. We recommend a light meal to start, then progress as tolerated. 2. Restart regular medications in one hour. 3. No aspirin or non-steroidal containing medication for three days. 4. No lifting over 20 pounds or strenuous activity for the first 24 hours after your procedure. After 24 hours there are no restrictions on your activity, but you may feel fatigued for a few days. ? Findings:hiatal hernia ? Treatment:see hand-out -Medications:protonix -Continue to follow lifestyle modifications: No alcohol, tobacco products, Aspirin or NSAID's (ibuprofen, Motrin, Naprosyn, aleve, etc).? Try to limit/avoid:? soda pop/any carbonated beverages, caffeine (including tea & chocolate), and acidic foods, (tomatoes, citrus, onions, peppermints) spicy or fried/fatty foods. Do not lie down for 30 minutes after eating, and do not eat 2 hours prior to bedtime. Avoid wearing tight fitting clothing/ belts. Follow up: -My office will send a letter with the results of your biopsy?s in 2-3wks time. ? Call the office at [phone] (Office) or [phone] (Hospital), or go to the ER right away if you notice any of the followin. Vomiting blood and /or ?coffee ground? material. ?2. Worsening of abdominal pain or cramping. ?3. Trouble with breathing, cough, and/or fever (temperature above 101.5 F). 4. Increasing pain with swallowing. ?5. Chest pain. 6. Any new symptoms. 7. Worsening of the redness at the IV site ? Activity:: see above Diet:: see above Discharge Orders Discharge Orders: Discharge Order (Routine); Ordered 05/03/21 Ordered By: Emeli Silverman
[2021-05-04 10:10] VITALS: BP 128/78; PULSE 59; RESP 16; TEMP 36.3; O2SAT 97
--- NOTE | 2021-05-04 13:15 | W.ANESPOSTOP ---
Postoperative Evaluation Date, Time and Location Date Performed: 05/04/21 Time Performed: 10:10 Patient Location: Day Surgery Unit Vital Signs Most Recent Imported Vital Signs: Most Recent Vital Signs Temp Pulse Resp BP Pulse Ox 36.3 C L 59 L 16 128/78 97 05/04/21 10:10 05/04/21 10:10 05/04/21 10:10 05/04/21 10:10 05/04/21 10:10 Pain Score Most Recent Pain Score: Most Recent Pain Score Pain Level 0 05/04/21 10:10 Assessment Mental Status: Awake (Alert & Oriented to Patient Baseline) Airway and Respiratory Function: Patent airway with normal (patient baseline) respiratory exam Cardiovascular Function: Hemodynamically Stable Hydration Status: Adequately Hydrated Nausea & Vomiting: No Nausea or Vomiting Pain: Pt. Denies Any Pain Peripheral Nerve Block: Patient did not receive a nerve block
[2021-05-04 16:07] LABS: Lab Add On Test DONE
[2021-05-04 17:51] LABS: Folate 8.6 ng/mL (8.6-20.0); Vitamin B12 432 pg/mL (193-986)
[2021-05-05 10:22] LABS: Ferritin 13 ng/mL (22-322)
== END 2021-05-04 10:52 | disposition home or self-care (01) ==
PROVIDERS: PCP Family Medicine; Visit Provider Surgery
PROC: 0DJ68ZZ Inspection of Stomach, Via Natural or Artificial Opening Endoscopic (ICD-10-PCS; CPT 43235; principal; 2021-05-04 09:00)
DX: R10.13 Epigastric pain (principal); K31.89 Other diseases of stomach and duodenum; K44.9 Diaphragmatic hernia without obstruction or gangrene; D64.9 Anemia, unspecified
CPT/HCPCS: 43239; 85027; 88305; 96365; 82607; 82728; 82746; 83540; 83550; J1756; J2001

== ENCOUNTER 2022-07-25 15:43 | Emergency (ER) | payer OTHER, SELFPAY ==
[2022-07-25 15:50] VITALS: BP 123/80; PULSE 71; RESP 20; O2SAT 98
[2022-07-25] MEDS: Ondansetron 4 MG/2 ML VIAL IVP (17:09)
[2022-07-25] MEDS: Lactated Ringers 1,000 ML 1000 ML IV (17:09)
[2022-07-25 17:17] LABS: Abs Immature Grans 0.03 10^3/uL (0.0-0.06); Absolute Basophil Count 0.04 10^3/uL (0.0-0.2); Absolute Lymphocyte Count 1.22 10^3/uL (1.2-3.4); Absolute Monocyte Count 0.46 10^3/uL (0.1-0.8); Absolute Neutrophil Count 8.93 10^3/uL (1.2-6.7); Basophils % 0.4; HGB 12.8 g/dL (13.5-17.5); Immature Grans % 0.3; Lymphocytes % 11.4; MCH 29.2 pg (27.0-33.0); MCHC 33.7 % (32.0-36.0); MCV 87 fL (80-95); MPV 9.8 fL (8.0-11.0); Monocytes % 4.3; Neutrophils % 83.6; Platelet Count 274 10^3/uL (130-400); RBC 4.39 10^6/uL (4.36-5.78); RDW 12.4 % (11.8-14.1); RDW-SD 39.3 fL; WBC 10.68 10^3/uL (4.4-10.8)
[2022-07-25 17:37] LABS: ALT 17 U/L (16-63); AST 17 U/L (15-37); Albumin 4.4 g/dL (3.4-5.0); Alkaline Phosphatase 60 U/L (46-116); Anion Gap 7.6 mmol/L (3-11); BUN 19 mg/dL (7-18); Bilirubin, Total 0.5 mg/dL (0.2-1.0); CO2 26.4 mmol/L (21.0-32.0); Calcium 9.8 mg/dL (8.5-10.1); Chloride 104 mmol/L (98-107); Estimated GFR 96.37 (mL/min/1.73m2); Glucose 124 mg/dL (74-106); Lipase 101 U/L (16-77); Potassium 3.9 mmol/L (3.5-5.1); Sodium 138 mmol/L (136-145); TSH (W/Ref FT4) 0.41 uIU/mL (0.36-3.74); Total Protein 8.2 g/dL (6.4-8.2)
[2022-07-25] MEDS: Normal Saline 50 ML 500 ML (18:08)
[2022-07-25] MEDS: Prochlorperazine 10 MG/2 ML VIAL 5 MG IVP (18:08)
[2022-07-25] MEDS: Pantoprazole 40 MG VIAL IVP (18:08)
[2022-07-25] MEDS: Hyoscyamine 0.5 MG/ML VIAL 0.25 MG IVP (18:22)
--- NOTE | 2022-07-25 18:37 | ED.GENADUL_ITS ---
Discharge Plan Disposition Patient Disposition: Home Discharge Details Clinical Impression: Abdominal pain, Nausea & vomiting, Anxiety Primary Care Provider: Yang Bejarano ED Provider: Nevin Naylor Home Meds and New Rx's Prescriptions: New hyoscyamine sulfate [Oscimin] 0.125 mg tablet 0.125 mg PO QID PRNQty: 30 0RF Rx Instructions: pain and cramping sucralfate [Carafate] 1 gram tablet 1 g PO BID Qty: 60 0RF prochlorperazine maleate [Compazine] 10 mg tablet 10 mg PO Q6H PRNQty: 14 0RF Continued clonazepam 0.5 mg tablet 0.5 mg PO TID MDD 1.5 mg PRN (Reason: anxiety) Qty: 90 5RF buprenorphine-naloxone 2-0.5 mg tablet, sublingual 2 tab sublingual BID MDD 8 mg buprenorphine Qty: 112 2RF sildenafil 50 mg tablet 50 mg PO DAILY PRN (Reason: sexual activity) Qty: 14 6RF Rx Instructions: administer 30 minutes to 4 hours before activity metoprolol succinate 25 mg tablet extended release 24 hr 25 mg PO DAILY Qty: 90 3RF pantoprazole [Protonix] 40 mg tablet,delayed release (DR/EC) 40 mg PO DAILY PRN Qty: 90 4RF Discharge Instructions Instructions: Acute Nausea and Vomiting (ED), Abdominal Pain (ED) Additional Instructions: Take Levsin as needed for abdominal pain Take Carafate as needed for pain as well Take Compazine as needed for nausea and vomiting Clear liquid diet as tolerated, bland diet thereafter Please follow-up with your doctor Please set up for outpatient ultrasound Your lipase checked by your doctor next week, recommend clear liquid diet for the next several days and staying away from solid food temporarily Stand Alone Forms: Work Release Referrals: Yang Bejarano DO [Primary Care Provider] - Discharge Data Discharge Date/Time-TO BE ENTERED AT DEPARTURE: 07/25/22 19:17 Medical Decision Making 42-year-old male, nausea, vomiting, diarrhea Labs are reassuring, mild elevation in lipase, encouraged to have this rechecked by his primary care physician Encourage clear liquid diet for the next several days, nontender abdominal exam on reassessment, ultrasound abdomen ordered in the outpatient setting No elevation in LFTs Afebrile and nontoxic Return precautions reviewed and patient expressed understanding Medical Records Medical records reviewed: Yes I reviewed the patient's medical records. Lab Data Lab results reviewed: Yes I reviewed the patient's lab results. ECG Data Prior ECG tracings: available for review HPI General Date/Time Provider Initiated Documentation: 07/25/22 16:27 . HPI Narrative: This 42-year-old male presents with report of nausea, diarrhea, states has been happening for the past several weeks. Denies any chest pain or shortness of breath. Related Data Home Medications Medication Instructions Recorded Confirmed sildenafil 50 mg tablet 50 mg PO DAILY PRN sexual activity 02/14/22 07/25/22 #14 tabs clonazepam 0.5 mg tablet 0.5 mg PO TID PRN anxiety #90 tabs 03/04/22 07/25/22 metoprolol succinate 25 mg 25 mg PO DAILY #90 tabs 04/04/22 07/25/22 tablet,extended release 24 hr buprenorphine 2 mg-naloxone 0.5 mg 2 tab sublingual BID #112 tabs 05/05/22 07/25/22 sublingual tablet pantoprazole 40 mg tablet,delayed 40 mg PO DAILY PRN acid reflux 06/06/22 07/25/22 release (Protonix) symptoms #90 tabs hyoscyamine sulfate 0.125 mg 0.125 mg PO QID PRN #30 tabs 07/25/22 tablet (Oscimin) prochlorperazine maleate 10 mg 10 mg PO Q6H PRN #14 tabs 07/25/22 tablet (Compazine) sucralfate 1 gram tablet (Carafate) 1 g PO BID #60 tabs 07/25/22 Previous Rx's Medication Instructions Recorded sildenafil 50 mg tablet 50 mg PO DAILY PRN sexual activity 02/14/22 #14 tabs clonazepam 0.5 mg tablet 0.5 mg PO TID PRN anxiety #90 tabs 03/04/22 metoprolol succinate 25 mg 25 mg PO DAILY #90 tabs 04/04/22 tablet,extended release 24 hr buprenorphine 2 mg-naloxone 0.5 mg 2 tab sublingual BID #112 tabs 05/05/22 sublingual tablet pantoprazole 40 mg tablet,delayed 40 mg PO DAILY PRN acid reflux 06/06/22 release (Protonix) symptoms #90 tabs hyoscyamine sulfate 0.125 mg 0.125 mg PO QID PRN #30 tabs 07/25/22 tablet (Oscimin) prochlorperazine maleate 10 mg 10 mg PO Q6H PRN #14 tabs 07/25/22 tablet (Compazine) sucralfate 1 gram tablet (Carafate) 1 g PO BID #60 tabs 07/25/22 Allergies Allergy/AdvReac Type Severity Reaction Status Date / Time No Known Allergies Allergy Verified 05/05/22 14:49 General Stated Complaint: Nausea/Vomit/Diar ANGELINA: 3 PFSH All Active Problems (Updated 07/25/22 @ 18:46 by FELICIA Currie) Abdominal pain (Acute) Nausea & vomiting (Acute) Hiatal hernia (Chronic) Acute UTI (Acute) SVT (supraventricular tachycardia) (Chronic) Inguinal hernia (Acute) [place]18[place] [facility] [place] for Evaluation of R Inguinal Hernia and future plan for laparoscopic repair. 03/25/2019 pre-anesthesia appoint at [facility] [place] Constipation due to opioid therapy (Acute) Anxiety (Chronic) Diverticulosis (Acute) Uncomplicated opioid dependence (Chronic 06/01/17) Medical History (Updated 07/25/22 @ 18:46 by FELICIA Currie) Incarcerated right inguinal hernia Surgical History (Updated 05/14/21 @ 10:07 by Geovanna Goins RN) History of esophagogastroduodenoscopy (EGD) (~05/04/21) S/P right inguinal hernia repair (04/08/19) lap initial rgt hernia, direct and indirectw/ modifier mes, BARD Family History Mother No problems noted. Father Diabetes Heart disease Social History (Updated 04/12/21 @ 13:31 by FELICIA Maravilla) Smoking/Tobacco Use Status: Former Tobacco Use Quit Date: 03/13/14 Smoking risk assessment performed?: Yes Alcohol Intake: never Drug use: Current Sobriety Substance use type: former substance user and opiates Details: sometimes' smokes/vapes marijuana. 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 Working smoke detector in home: Yes Fire extinguisher in home: Yes Carbon monox detector in home: Yes Do you feel safe at home: Yes Do you feel safe in your relationship?: Yes Exam Const General: cooperative, comfortable and no acute distress Eyes Sclera: sclerae normal Resp Effort & Inspection: normal respiratory effort Auscultation: clear to auscultation bilaterally Cardio Rate: regular rate Rhythm: regular rhythm GI Inspection: normal to inspection Auscultation: normal bowel sounds Other: Nontender abdominal exam Skin General skin exam: no rashes or lesions noted Course Vital Signs Vital signs: Vital Signs Pulse 71 07/25/22 15:50 Respiratory Rate 20 07/25/22 15:50 Blood Pressure 123/80 07/25/22 15:50 Pulse Oximetry 98 07/25/22 15:50 Pulse 71 07/25/22 15:50 Respiratory Rate 20 07/25/22 15:50 Respiratory Effort Normal, Non-Labored 07/25/22 15:56 Blood Pressure 123/80 07/25/22 15:50 Blood Pressure Position Sitting 07/25/22 15:50 Pulse Oximetry 98 07/25/22 15:50 Lab/Test Results Lab/Test Results: Laboratory Tests Range/Units 07/25/22 07/25/22 16:14 16:14 WBC (4.4-10.8) 10^3/uL 10.68 RBC (4.36-5.78) 10^6/uL 4.39 Hgb (13.5-17.5) g/dL 12.8 L Hct (40.0-50.0) % 38.0 L MCV (80-95) fL 87 MCH (27.0-33.0) pg 29.2 MCHC (32.0-36.0) % 33.7 RDW (11.8-14.1) % 12.4 Plt Count (130-400) 10^3/uL 274 MPV (8.0-11.0) fL 9.8 Immature Gran % 0.3 Neutrophils % 83.6 Lymphocytes % 11.4 Monocytes % 4.3 Eosinophils % 0.0 Basophils % 0.4 Nucleated RBC % (0.0-0.3) % 0.0 Absolute Neutrophils (1.2-6.7) 10^3/uL 8.93 H Absolute Lymphocytes (1.2-3.4) 10^3/uL 1.22 Absolute Monocytes (0.1-0.8) 10^3/uL 0.46 Absolute Eosinophils (0.0-0.7) 10^3/uL 0.00 Absolute Basophils (0.0-0.2) 10^3/uL 0.04 Sodium (136-145) mmol/L 138 Potassium (3.5-5.1) mmol/L 3.9 Chloride (98-107) mmol/L 104 Carbon Dioxide (21.0-32.0) mmol/L 26.4 Anion Gap (3-11) mmol/L 7.6 BUN (7-18) mg/dL 19 H Creatinine (0.70-1.30) mg/dL 1.0 Est GFR (CKD-EPI 2020) (mL/min/1.73m2) 96.37 Glucose (74-106) mg/dL 124 H Calcium (8.5-10.1) mg/dL 9.8 Total Bilirubin (0.2-1.0) mg/dL 0.5 AST (15-37) U/L 17 ALT (16-63) U/L 17 Alkaline Phosphatase (46-116) U/L 60 Total Protein (6.4-8.2) g/dL 8.2 Albumin (3.4-5.0) g/dL 4.4 Lipase (16-77) U/L 101 H TSH (0.36-3.74) uIU/mL 0.41
--- NOTE | 2022-07-25 18:42 | NUR.NOTE ---
Nursing Note: faxed to [facility]
[2022-07-25 19:15] VITALS: BP 135/74; PULSE 75; RESP 18; O2SAT 98
== END 2022-07-25 19:17 | disposition home or self-care (01) ==
PROVIDERS: Emergency Provider Physician Assistant; PCP Family Medicine
DX: R19.7 Diarrhea, unspecified (principal); R11.2 Nausea with vomiting, unspecified; R06.02 Shortness of breath; R42 Dizziness and giddiness; R10.9 Unspecified abdominal pain; F41.9 Anxiety disorder, unspecified; R74.8 Abnormal levels of other serum enzymes
CPT/HCPCS: 80053; 83690; 96361; 96374; 96375; 99284; 84443; 85025; 99283; J0780; J2405

== ENCOUNTER 2022-09-06 02:05 | Outpatient (CLI) | payer OTHER, SELFPAY ==
[2022-09-06 09:32] LABS: ALT 19 U/L (16-63); AST 15 U/L (15-37); Albumin 4.3 g/dL (3.4-5.0); Alkaline Phosphatase 58 U/L (46-116); Anion Gap 7.7 mmol/L (3-11); BUN 34 mg/dL (7-18); Bilirubin, Total 0.3 mg/dL (0.2-1.0); CO2 31.3 mmol/L (21.0-32.0); CREATININE 1.2 mg/dL (0.70-1.30); Calcium 8.8 mg/dL (8.5-10.1); Calculated LDL 134 mg/dL (<100); Chloride 105 mmol/L (98-107); Cholesterol 187 mg/dL (<200); Estimated GFR 77.43 (mL/min/1.73m2); Glucose 102 mg/dL (74-106); HDL Cholesterol 36 mg/dL (40-60); Potassium 3.6 mmol/L (3.5-5.1); Sodium 144 mmol/L (136-145); Total Protein 7.6 g/dL (6.4-8.2); Triglyceride 88 mg/dL (<150)
== END 2022-09-06 02:06 | disposition home or self-care (01) ==
LOC: LBO 02:05
PROVIDERS: PCP Family Medicine; Referring Provider Family Medicine; Visit Provider Family Medicine
DX: I47.1 Supraventricular tachycardia (principal); Z13.220 Encounter for screening for lipoid disorders
CPT/HCPCS: 36415; 80053; 80061

== ENCOUNTER 2022-09-08 19:53 | Outpatient (REF) | payer OTHER, SELFPAY ==
[2022-09-12 20:11] LABS: Calprotectin <50.0 mcg/g
== END 2022-09-08 19:54 | disposition home or self-care (01) ==
LOC: LBN 19:53
PROVIDERS: PCP Family Medicine; Visit Provider Family Medicine
DX: R19.7 Diarrhea, unspecified (principal)
CPT/HCPCS: 87329; 87493; 83993

== ENCOUNTER 2023-02-14 17:42 | Emergency (ER) | payer OTHER, SELFPAY ==
[2023-02-14 17:45] VITALS: BP 123/63; PULSE 78; RESP 18; TEMP 37.2; O2SAT 99
[2023-02-14] MEDS: Lactated Ringers 1,000 ML 1000 ML IV (18:16)
[2023-02-14] MEDS: ACETAMINOPHEN 1,000 MG/100 ML BTL 400 MG IVPB (18:16)
[2023-02-14] MEDS: Dicyclomine 10 MG CAP PO (18:16)
[2023-02-14] MEDS: Ondansetron 4 MG/2 ML VIAL IVP (18:16)
[2023-02-14 18:32] LABS: Abs Immature Grans 0.04 10^3/uL (0.0-0.06); Absolute Basophil Count 0.03 10^3/uL (0.0-0.2); Absolute Monocyte Count 0.58 10^3/uL (0.1-0.8); Basophils % 0.2; HCT 40.1 % (40.0-50.0); HGB 13.4 g/dL (13.5-17.5); Immature Grans % 0.3; Lymphocytes % 11.3; MCH 29.8 pg (27.0-33.0); MCHC 33.4 % (32.0-36.0); MCV 89 fL (80-95); MPV 9.3 fL (8.0-11.0); Monocytes % 4.4; Neutrophils % 83.8; Platelet Count 369 10^3/uL (130-400); RDW 12.6 % (11.8-14.1); RDW-SD 41.3 fL; WBC 13.24 10^3/uL (4.4-10.8)
[2023-02-14 18:42] LABS: Lipase 42 U/L (16-77); Magnesium 2.2 mg/dL (1.8-2.4)
[2023-02-14 18:48] LABS: ALT 17 U/L (16-63); AST 14 U/L (15-37); Alkaline Phosphatase 60 U/L (46-116); Anion Gap 11.4 mmol/L (3-11); BUN 27 mg/dL (7-18); Bilirubin, Total 0.4 mg/dL (0.2-1.0); CO2 28.6 mmol/L (21.0-32.0); CREATININE 1.1 mg/dL (0.70-1.30); Calcium 10.5 mg/dL (8.5-10.1); Chloride 103 mmol/L (98-107); Estimated GFR 85.95 (mL/min/1.73m2); Glucose 141 mg/dL (74-106); Potassium 3.8 mmol/L (3.5-5.1); Sodium 143 mmol/L (136-145); Total Protein 9.6 g/dL (6.4-8.2)
[2023-02-14] MEDS: Normal Saline 1,000 ML 1000 ML IV (19:12)
--- NOTE | 2023-02-14 19:37 | ED.GENADUL_ITS ---
Discharge Plan Disposition Patient Disposition: Home Condition: Good Discharge Details Clinical Impression: Nausea & vomiting Primary Care Provider: Yang Bejarano ED Provider: Ceasar Mcgrath Home Meds and New Rx's Prescriptions: New Capzasin 0.025-10 % gel 1 applic topical DAILY Qty: 42.5 0RF No Action buprenorphine-naloxone 2-0.5 mg tablet, sublingual 2 tab sublingual BID MDD 8 mg buprenorphine Qty: 112 3RF sumatriptan 20 mg/actuation spray,non-aerosol 20 mg intranasal ONCE Qty: 6 3RF Rx Instructions: administer into one nostril as a single dose clonazepam 0.5 mg tablet 0.5 mg PO TID MDD 1.5 mg PRN (Reason: anxiety) Qty: 90 3RF sildenafil 50 mg tablet 50 mg PO DAILY PRN (Reason: sexual activity) Qty: 14 6RF Rx Instructions: administer 30 minutes to 4 hours before activity metoprolol succinate 25 mg tablet extended release 24 hr 25 mg PO DAILY Qty: 90 3RF gabapentin 300 mg capsule 300 mg PO TID Qty: 270 3RF pantoprazole 40 mg tablet,delayed release (DR/EC) 40 mg PO DAILY Patient Comments: TAKE ONE TABLET BY MOUTH EVERY DAY Discharge Instructions Instructions: Acute Nausea and Vomiting (ED) Additional Instructions: At this time your laboratory work-up did show mild dehydration. Please continue to drink plenty of fluids at home. Take the Zofran as needed for nausea. Please avoid any fatty foods, greasy foods, tomato-based products. Stick with a liquid and soft diet over the next 3 to 5 days to help your jaw pain. Please ice your left jaw as needed. Once your stomach settles down, you can take Tylenol and Motrin for your jaw pain as well. Follow-up closely with your solutions sales executive at [facility] for scheduled colonoscopy. If you notice any worsening of your symptoms, or any new symptoms such as vomiting, diarrhea, fever, chills, shortness of breath, chest pain, numbness, weakness, or fainting , please return immediately to the emergency department for reevaluation. Please follow up with your primary care provider as soon as possible for reassessment and reevaluation. As always, it was a pleasure participating in your medical care today. Stand Alone Forms: Work Release Referrals: Yang Bejarano DO [Primary Care Provider] - Medical Decision Making 42-year-old male with a past medical history of chronic diarrhea currently being evaluated at [facility] with a scheduled colonoscopy on 03/14/2023, previous cyclic vomiting syndrome, SVT on metoprolol, bilateral inguinal hernias that been repaired, previous diverticulosis, who presents today for evaluation of nausea vomiting diarrhea. Patient states that he has had chronic abdominal pain/cramping and diarrhea over the last few months, however over the last day or so he has had increased cramping nausea and then this morning he developed nausea and vomiting which has been persistent throughout the day with multiple episodes of vomiting. No blood in the vomitus or stool. He has not been able to keep any of his normal medications down. He denies any chest pain or abdominal pain. He denies any fever or chills. He does admit to a left-sided headache that seems to start at his TMJ on the left. He does admit to getting hit in the left jaw a few days ago by a friend on accident while playing sports. This then led to irritation in his jaw the other day which is worsened his pain. He has no other complaints at this time. No other modifying factors. Exam demonstrates dry mucous membranes, nontender nonsurgical abdomen. Vital signs stable. Suspect a viral component of gastroenteritis. He does admit to seeing a family member the other day that had similar symptoms. I suspect that this is likely the cause of his symptoms. We will rehydrate, give Bentyl, Toradol for his TMJ. No indication for CT imaging at this time based on clinical exam and assessment. Will monitor closely and reassess. 7:52 PM Laboratory work-up demonstrates a minimally elevated white count at 13. No bandemia. Electrolytes stable. BUN 27 with a creatinine of 1.1 suggesting dehydration. Minimal anion gap elevation. Glucose normal. Electrolytes stable. Lipase normal. Patient is feeling much better on reassessment. Patient was rehydrated with 1 L of normal saline 1 L of lactated Ringer's. Will give Zofran for home use. Patient stable for discharge otherwise. Recommend continue close follow-up with his solutions sales executive at [facility] in March. Discussed red flags for which to return. I have extensively reviewed the treatment plan and discharge instructions with the patient and their family. I have addressed all patient concerns at this time. The patient and family was made aware of what symptoms to monitor for that would warrant a return to the emergency department. Discussed the plan with the patient and family, they demonstrate verbal understanding and agreement with our assessment and plan at this time. The documentation in this chart was dictated using [employer] dictation software. Please excuse any dictation errors. HPI General Date/Time Provider Initiated Documentation: 02/14/23 17:47 . HPI Narrative: 42-year-old male with a past medical history of chronic diarrhea currently being evaluated at [facility] with a scheduled colonoscopy on 03/14/2023, previous cyclic vomiting syndrome, SVT on metoprolol, bilateral inguinal hernias that been repaired, previous diverticulosis, who presents today for evaluation of nausea vomiting diarrhea. Patient states that he has had chronic abdominal pain/cramping and diarrhea over the last few months, however over the last day or so he has had increased cramping nausea and then this morning he developed nausea and vomiting which has been persistent throughout the day with multiple episodes of vomiting. No blood in the vomitus or stool. He has not been able to keep any of his normal medications down. He denies any chest pain or abdominal pain. He denies any fever or chills. He does admit to a left-sided headache that seems to start at his TMJ on the left. He does admit to getting hit in the left jaw a few days ago by a friend on accident while playing sports. This then led to irritation in his jaw the other day which is worsened his pain. He has no other complaints at this time. No other modifying factors. Related Data Home Medications Medication Instructions Recorded Confirmed sildenafil 50 mg tablet 50 mg PO DAILY PRN sexual activity 02/14/22 02/14/23 #14 tabs metoprolol succinate 25 mg 25 mg PO DAILY #90 tabs 04/04/22 02/14/23 tablet,extended release 24 hr gabapentin 300 mg capsule 300 mg PO TID #270 caps 12/08/22 02/14/23 buprenorphine 2 mg-naloxone 0.5 mg 2 tab sublingual BID #112 tabs 01/30/23 02/14/23 sublingual tablet clonazepam 0.5 mg tablet 0.5 mg PO TID PRN anxiety #90 tabs 01/30/23 02/14/23 sumatriptan 20 mg/actuation nasal 20 mg intranasal ONCE #6 ea 01/30/23 02/14/23 spray capsaicin-menthol 0.025 %-10 % 1 applic topical DAILY #42.5 grams 02/14/23 topical gel with applicator (Capzasin) pantoprazole 40 mg tablet,delayed 40 mg PO DAILY 02/14/23 02/14/23 release Previous Rx's Medication Instructions Recorded sildenafil 50 mg tablet 50 mg PO DAILY PRN sexual activity 02/14/22 #14 tabs metoprolol succinate 25 mg 25 mg PO DAILY #90 tabs 04/04/22 tablet,extended release 24 hr gabapentin 300 mg capsule 300 mg PO TID #270 caps 12/08/22 buprenorphine 2 mg-naloxone 0.5 mg 2 tab sublingual BID #112 tabs 01/30/23 sublingual tablet clonazepam 0.5 mg tablet 0.5 mg PO TID PRN anxiety #90 tabs 01/30/23 sumatriptan 20 mg/actuation nasal 20 mg intranasal ONCE #6 ea 01/30/23 spray capsaicin-menthol 0.025 %-10 % 1 applic topical DAILY #42.5 grams 02/14/23 topical gel with applicator (Capzasin) Allergies Allergy/AdvReac Type Severity Reaction Status Date / Time No Known Allergies Allergy Verified 02/14/23 17:47 General Stated Complaint: Nausea/Vomit/Diar ANGELINA: 3 Review of Systems All systems reviewed & are unremarkable except as noted in HPI and below PFSH All Active Problems (Updated 02/14/23 @ 19:53 by Ceasar Mcgrath DO) Nausea & vomiting (Acute) Cervical radicular pain (Acute) Cyclic vomiting syndrome (Acute) Diarrhea (Acute) Hiatal hernia (Chronic) Acute UTI (Acute) SVT (supraventricular tachycardia) (Chronic) Inguinal hernia (Acute) [place] [facility] [place] for Evaluation of R Inguinal Hernia and future plan for laparoscopic repair. 03/25/2019 [place]est[place] [facility] [place] Anxiety (Chronic) Diverticulosis (Acute) Uncomplicated opioid dependence (Chronic 06/01/17) Medical History Incarcerated right inguinal hernia Surgical History History of esophagogastroduodenoscopy (EGD) (~05/04/21) S/P right inguinal hernia repair (04/08/19) lap initial rgt hernia, direct and indirectw/ modifier mes, BARD Family History Mother No problems noted. Father Diabetes Heart disease Social History Smoking/Tobacco Use Status: Former Tobacco Use Quit Date: 03/13/14 Tobacco: How many years used: 15 Second Hand Exposure: No Smoking risk assessment performed?: Yes Alcohol Intake: never Drug use: Current Sobriety Substance use type: former substance user and opiates Details: sometimes' smokes/vapes marijuana. 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 3.ENT: Atraumatic external nose and ears. Notably dry MM. Neck: Symmetric, trachea midline, No thyromegaly. Patient demonstrates good movement of cervical neck. There is no nuchal rigidity, no nuchal tenderness. Patient is able to flex the neck without any difficulty or significant pain. Negative Kernig's and Brudzinski sign. No evidence of otitis media in the left ear. Mild tenderness over the left temporomandibular joint. 4.CVS: +S1/S2, No murmurs or gallops. Peripheral pulses 2+ and equal in all extremities. Brisk capillary refill in all extremities. 5.RESP: Unlabored respiratory effort. Clear to auscultation bilaterally. No wheezes rales or rhonchi 6.GI: Soft, Nontender/Nondistended, No hepatosplenomegaly. No guarding or rebound. 7.MSK: Normocephalic/Atraumatic, Extremities w/o deformity or ttp No cyanosis or clubbing, Normal movement of all extremities 8.Skin: Warm, Dry. No rashes or lesions. 9.Neuro: supervisor multifocal lens II-XII grossly intact. Sensation grossly intact, no focal neurologic deficits. 10.Psych: (AAO) x3. Appropriate mood and affect Course Vital Signs Vital signs: Vital Signs Temperature 37.2 C 02/14/23 17:45 Pulse 78 02/14/23 17:45 Respiratory Rate 18 02/14/23 17:45 Blood Pressure 123/63 02/14/23 17:45 Pulse Oximetry 99 02/14/23 17:45 Temperature 37.2 C 02/14/23 17:45 Temperature Source Temporal Artery Scan 02/14/23 17:45 Pulse 78 02/14/23 17:45 Respiratory Rate 18 02/14/23 17:45 Respiratory Effort Normal 02/14/23 17:54 Blood Pressure 123/63 02/14/23 17:45 Blood Pressure Position Sitting 02/14/23 17:45 Pulse Oximetry 99 02/14/23 17:45 Oxygen Delivery Method Room Air 02/14/23 17:45 Oxygen Flow Rate 0 02/14/23 17:45 Lab/Test Results Lab/Test Results: Laboratory Tests Range/Units 02/14/23 17:58 WBC (4.4-10.8) 10^3/uL 13.24 H RBC (4.36-5.78) 10^6/uL 4.50 Hgb (13.5-17.5) g/dL 13.4 L Hct (40.0-50.0) % 40.1 MCV (80-95) fL 89 MCH (27.0-33.0) pg 29.8 MCHC (32.0-36.0) % 33.4 RDW (11.8-14.1) % 12.6 Plt Count (130-400) 10^3/uL 369 MPV (8.0-11.0) fL 9.3 Immature Gran % 0.3 Neutrophils % 83.8 Lymphocytes % 11.3 Monocytes % 4.4 Eosinophils % 0.0 Basophils % 0.2 Nucleated RBC % (0.0-0.3) % 0.0 Absolute Neutrophils (1.2-6.7) 10^3/uL 11.10 H Absolute Lymphocytes (1.2-3.4) 10^3/uL 1.50 Absolute Monocytes (0.1-0.8) 10^3/uL 0.58 Absolute Eosinophils (0.0-0.7) 10^3/uL 0.00 Absolute Basophils (0.0-0.2) 10^3/uL 0.03 Sodium (136-145) mmol/L 143 Potassium (3.5-5.1) mmol/L 3.8 Chloride (98-107) mmol/L 103 Carbon Dioxide (21.0-32.0) mmol/L 28.6 Anion Gap (3-11) mmol/L 11.4 H BUN (7-18) mg/dL 27 H Creatinine (0.70-1.30) mg/dL 1.1 Est GFR (CKD-EPI 2020) (mL/min/1.73m2) 85.95 Glucose (74-106) mg/dL 141 H Calcium (8.5-10.1) mg/dL 10.5 H Magnesium (1.8-2.4) mg/dL 2.2 Total Bilirubin (0.2-1.0) mg/dL 0.4 AST (15-37) U/L 14 L ALT (16-63) U/L 17 Alkaline Phosphatase (46-116) U/L 60 Total Protein (6.4-8.2) g/dL 9.6 H Albumin (3.4-5.0) g/dL 5.0 Lipase (16-77) U/L 42
[2023-02-14] MEDS: Ketorolac 30 MG/ML VIAL IVP (20:02)
[2023-02-14] MEDS: Ondansetron O.D.T. 4 MG TABEF, 3 TABS/BTL PO (20:02)
== END 2023-02-14 20:02 | disposition home or self-care (01) ==
PROVIDERS: Emergency Provider Student in an Organized Health Care Education/Training Program; PCP Family Medicine
DX: R11.2 Nausea with vomiting, unspecified (principal); R19.7 Diarrhea, unspecified; E86.0 Dehydration; Z87.891 Personal history of nicotine dependence
CPT/HCPCS: 80053; 83690; 96361; 96374; 96375; 99283; 83735; 85025; J0131; J1885; J2405

== ENCOUNTER 2023-06-09 16:06 | Emergency (ER) | payer OTHER, SELFPAY ==
[2023-06-09 16:09] VITALS: BP 122/66; PULSE 95; RESP 18; TEMP 39; O2SAT 100
--- NOTE | 2023-06-09 16:45 | DI.RAD_ITS ---
Exam(s) XR PORTABLE CHEST AP EXAM: XR PORTABLE CHEST AP CLINICAL HISTORY: chest pain TECHNIQUE: 2D digital imaging was performed of the chest. One image was obtained. An AP view was ob tained. COMPARISON: CR,XR XR CHEST 2V PA LATERAL from 12/03/2018 FINDINGS: MEDIASTINUM: Normal. HEART: Normal. PULMONARY VASCULATURE: Normal. LUNGS: Clear. PLEURAL SPACE: No pleural effusion or pneumothorax. BONE:Within normal limits for the patient's age. OTHER FINDINGS:Normal. IMPRESSION: No acute pulmonary findings. DATA REPOSITORY: RADIATION DOSE DELIVERED:
[2023-06-09 17:01] LABS: Abs Immature Grans 0.02 10^3/uL (0.0-0.06); Absolute Basophil Count 0.01 10^3/uL (0.0-0.2); Absolute Lymphocyte Count 0.98 10^3/uL (1.2-3.4); Absolute Monocyte Count 0.61 10^3/uL (0.1-0.8); Basophils % 0.1; HCT 30.7 % (40.0-50.0); HGB 9.9 g/dL (13.5-17.5); Immature Grans % 0.3; Lymphocytes % 12.4; MCH 28.4 pg (27.0-33.0); MCHC 32.2 % (32.0-36.0); MCV 88 fL (80-95); MPV 8.9 fL (8.0-11.0); Monocytes % 7.7; Neutrophils % 79.5; Platelet Count 226 10^3/uL (130-400); RBC 3.49 10^6/uL (4.36-5.78); RDW 13.6 % (11.8-14.1); RDW-SD 43.9 fL; WBC 7.92 10^3/uL (4.4-10.8)
[2023-06-09] MEDS: Lactated Ringers 1,000 ML 2000 ML IV (17:05)
[2023-06-09] MEDS: Ondansetron 4 MG/2 ML VIAL IVP (17:05)
[2023-06-09] MEDS: ACETAMINOPHEN 1,000 MG/100 ML BTL 400 MG IVPB (17:11)
--- NOTE | 2023-06-09 17:17 | W.ED.GENAD ---
Discharge Plan Disposition Patient Disposition: Against Medical Advice Discharge Details Chief Complaint: Nausea/Vomit/Diar Clinical Impression: Influenza A, Anemia, Proteinuria, Hypokalemia, Hypomagnesemia Primary Care Provider: Yang Bejarano ED Provider: Collin Nava [place] Meds and New Rx's Prescriptions: No Action clonazepam 0.5 mg tablet 0.5 mg PO TID MDD 1.5 mg PRN (Reason: anxiety) Qty: 90 3RF buprenorphine-naloxone 2-0.5 mg tablet, sublingual 2 tab sublingual BID MDD 8 mg buprenorphine Qty: 112 3RF sildenafil 50 mg tablet 50 mg PO DAILY PRN (Reason: sexual activity) Qty: 14 6RF Rx Instructions: administer 30 minutes to 4 hours before activity gabapentin 300 mg capsule 300 mg PO TID Qty: 270 3RF metoprolol succinate 25 mg tablet extended release 24 hr 25 mg PO DAILY Qty: 90 3RF Discharge Data Discharge Date/Time-TO BE ENTERED AT DEPARTURE: 06/09/23 19:14 Discharge Comment: Pt left against medical advice HPI General Mode of arrival: ambulatory. Date/Time Provider Initiated Documentation: 06/09/23 16:26. Limitations to Documentation: no limitations. Information obtained by: patient. HPI Narrative: 43-year-old male presents with chief complaint of dehydration. Patient notes nausea and vomiting over the past 5 days. Symptoms are severe and he is not tolerating oral intake. He feels severely dehydrated. He notes associated cough, fever, dysuria, myalgias, headache. He denies rash. Of note, his 2 daughters were recently sick with febrile illness that lasted 1 to 2 days and resolved. Related Data Home Medications Medication Instructions Recorded Confirmed sildenafil 50 mg tablet 50 mg PO DAILY PRN sexual activity 02/14/22 06/09/23 #14 tabs gabapentin 300 mg capsule 300 mg PO TID #270 caps 12/08/22 06/09/23 metoprolol succinate 25 mg 25 mg PO DAILY #90 tabs 04/04/23 06/09/23 tablet,extended release 24 hr buprenorphine 2 mg-naloxone 0.5 mg 2 tab sublingual BID #112 tabs 04/24/23 06/09/23 sublingual tablet clonazepam 0.5 mg tablet 0.5 mg PO TID PRN anxiety #90 tabs 04/24/23 06/09/23 Previous Rx's Medication Instructions Recorded sildenafil 50 mg tablet 50 mg PO DAILY PRN sexual activity 02/14/22 #14 tabs gabapentin 300 mg capsule 300 mg PO TID #270 caps 12/08/22 metoprolol succinate 25 mg 25 mg PO DAILY #90 tabs 04/04/23 tablet,extended release 24 hr buprenorphine 2 mg-naloxone 0.5 mg 2 tab sublingual BID #112 tabs 04/24/23 sublingual tablet clonazepam 0.5 mg tablet 0.5 mg PO TID PRN anxiety #90 tabs 04/24/23 Allergies Allergy/AdvReac Type Severity Reaction Status Date / Time No Known Allergies Allergy Verified 06/09/23 16:13 General Stated Complaint: Nausea/Vomit/Diar ANGELINA: 3 Review of Systems All systems reviewed & are unremarkable except as noted in HPI and below Constitutional Constitutional: Reports body ache(s) and Reports fever(s) Respiratory Respiratory: Reports cough Gastrointestinal Gastrointestinal: Reports abdominal pain (Diffuse), Reports nausea and Reports vomiting Exam Const General: cooperative and no acute distress HENMT Mouth: mucous membranes dry Eyes Conjunctivae: normal conjunctivae Sclera: normal sclerae Neck Neck: full ROM and no meningeal signs Resp Auscultation: clear to auscultation bilaterally, no rales, no rhonchi and no wheezes Cardio Rate: regular rate and not tachycardic Rhythm: regular rhythm GI Palpation: soft, not firm, no guarding, no masses, not rigid and tender (Diffusely with no focal tenderness) Skin General skin exam: no rashes or lesions noted Neuro General: patient alert, patient awake, patient oriented x3 and tone normal Extrem General: no edema Psych Appearance: grossly normal Mental Status: mental status grossly normal Course Vital Signs Vital signs: Vital Signs Temperature 39.0 C H 06/09/23 16:09 Pulse 95 H 06/09/23 16:09 Respiratory Rate 18 06/09/23 16:09 Blood Pressure 122/66 06/09/23 16:09 Pulse Oximetry 100 06/09/23 16:09 Temperature 39.0 C H 06/09/23 16:09 Pulse 95 H 06/09/23 16:09 Respiratory Rate 18 06/09/23 16:09 Respiratory Effort Normal 06/09/23 16:13 Blood Pressure 122/66 06/09/23 16:09 Blood Pressure Position Sitting 03/29/24 16:09 Pulse Oximetry 100 06/09/23 16:09 Oxygen Delivery Method Room Air 06/09/23 16:09 Oxygen Flow Rate 0 06/09/23 16:09 Lab/Test Results Lab/Test Results: Laboratory Tests Range/Units 06/09/23 16:55 WBC (4.4-10.8) 10^3/uL 7.92 RBC (4.36-5.78) 10^6/uL 3.49 L Hgb (13.5-17.5) g/dL 9.9 L Hct (40.0-50.0) % 30.7 L MCV (80-95) fL 88 MCH (27.0-33.0) pg 28.4 MCHC (32.0-36.0) % 32.2 RDW (11.8-14.1) % 13.6 Plt Count (130-400) 10^3/uL 226 MPV (8.0-11.0) fL 8.9 Immature Gran % 0.3 Neutrophils % 79.5 Lymphocytes % 12.4 Monocytes % 7.7 Eosinophils % 0.0 Basophils % 0.1 Nucleated RBC % (0.0-0.3) % 0.0 Absolute Neutrophils (1.2-6.7) 10^3/uL 6.30 Absolute Lymphocytes (1.2-3.4) 10^3/uL 0.98 L Absolute Monocytes (0.1-0.8) 10^3/uL 0.61 Absolute Eosinophils (0.0-0.7) 10^3/uL 0.00 Absolute Basophils (0.0-0.2) 10^3/uL 0.01 Medical Decision Making 1719??43-year-old male presents with severe nausea and vomiting with febrile illness over the past 5 days. Not tolerating p.o. Patient is dehydrated. He is febrile. Hemodynamically stable. No signs of focal bacterial infection on exam. Both his daughters recently sick with febrile illness. Concern for likely viral syndrome. Will send screening labs. Plan to treat with IV fluid bolus for dehydration. I will give ondansetron IV for nausea. Acetaminophen IV for fever and discomfort. -- I was notified by nursing that patient left AGAINST MEDICAL ADVICE while is performing a procedure. Patient apparently was feeling better after fluids. Patient was advised of his diagnostic lab workup by nursing. Patient positive for influenza. On review of his labs I do note hypokalemia, hypomagnesemia and anemia of unknown etiology. I will ask care management to arrange timely follow-up with his PCP for further evaluation. Lab Data Lab results reviewed: Yes I reviewed the patient's lab results. Labs: Laboratory Tests Range/Units 06/09/23 06/09/23 06/09/23 16:50 16:55 17:55 WBC (4.4-10.8) 10^3/uL 7.92 RBC (4.36-5.78) 10^6/uL 3.49 L Hgb (13.5-17.5) g/dL 9.9 L Hct (40.0-50.0) % 30.7 L MCV (80-95) fL 88 MCH (27.0-33.0) pg 28.4 MCHC (32.0-36.0) % 32.2 RDW (11.8-14.1) % 13.6 Plt Count (130-400) 10^3/uL 226 MPV (8.0-11.0) fL 8.9 Immature Gran % 0.3 Neutrophils % 79.5 Lymphocytes % 12.4 Monocytes % 7.7 Eosinophils % 0.0 Basophils % 0.1 Nucleated RBC % (0.0-0.3) % 0.0 Absolute Neutrophils (1.2-6.7) 10^3/uL 6.30 Absolute Lymphocytes (1.2-3.4) 10^3/uL 0.98 L Absolute Monocytes (0.1-0.8) 10^3/uL 0.61 Absolute Eosinophils (0.0-0.7) 10^3/uL 0.00 Absolute Basophils (0.0-0.2) 10^3/uL 0.01 Sodium (136-145) mmol/L 139 Potassium (3.5-5.1) mmol/L 3.0 L Chloride (98-107) mmol/L 102 Carbon Dioxide (21.0-32.0) mmol/L 26.6 Anion Gap (3-11) mmol/L 10.4 BUN (7-18) mg/dL 21 H Creatinine (0.70-1.30) mg/dL 1.0 Est GFR (CKD-EPI 2020) (mL/min/1.73m2) 95.77 Glucose (74-106) mg/dL 106 Calcium (8.5-10.1) mg/dL 8.7 Magnesium (1.8-2.4) mg/dL 1.6 L Total Bilirubin (0.2-1.0) mg/dL 0.4 AST (15-37) U/L 20 ALT (16-63) U/L 25 Alkaline Phosphatase (46-116) U/L 61 Troponin I (< or =60) ng/L < 50 Total Protein (6.4-8.2) g/dL 7.7 Albumin (3.4-5.0) g/dL 3.7 Urine Color (Yellow) Yellow Urine Clarity (Clear) Clear Urine pH (5-8) 5.5 Ur Specific [place] (1.005-1.025) >= 1.030 H Urine Protein (Neg-Trace) mg/dL 30 H Urine Ketones (Negative) mg/dL 40 H Urine Blood (Negative) Trace-intact H Urine Nitrite (Negative) Negative Urine Bilirubin (Negative) Negative Urine Urobilinogen (Up to 0.2) mg/dL 1.0 H Ur Leukocyte Esterase (Negative) Negative Urine RBC (0-2) HPF 0-2 Urine WBC (0-5) HPF 0-2 Ur Epithelial Cells (Negative) HPF Negative Urine Crystals (Negative) HPF Negative Urine Bacteria (Negative) HPF Negative Urine Casts (Negative) LPF Negative Urine Mucus (Negative) Moderate Ur Culture Indicated? No Urine Glucose (Negative) mg/dL Negative COVID-19 Source Nasopharynx SARS-CoV-2 (PCR) (Negative) Negative Influenza Type A (PCR) (Negative) Negative Influenza Type B (PCR) (Negative) Positive A RSV (PCR) (Negative) Negative Quality:SDOH Health Related Social Needs: No Data to Display PFSH All Active Problems (Updated 06/09/23 @ 23:12 by Collin Nava MD) Hypomagnesemia (Acute) Hypokalemia (Acute) Proteinuria (Acute) Anemia (Chronic) Influenza A (Acute) Left arm weakness (Acute) Cervical radicular pain (Acute) Cyclic vomiting syndrome (Acute) Diarrhea (Acute) Hiatal hernia (Chronic) Acute UTI (Acute) SVT (supraventricular tachycardia) (Chronic) Inguinal hernia (Acute) [place] [facility] [place] Evaluation of R Inguinal [place]ia and future plan for laparoscopic repair. 03/25/[place] [facility] [place]xiety (Chronic) Diverticulosis (Acute) Uncomplicated opioid dependence (Chronic 06/01/17) Medical History Incarcerated right inguinal hernia Surgical History History of esophagogastroduodenoscopy (EGD) (~05/04/21) [place] [place]Mild,non-specific inflammation in mid-esophagus and stomach S/P right inguinal hernia repair (04/08/19) lap initial rgt hernia, direct and indirectw/ modifier mes, BARD Family History Mother No problems noted. Father Diabetes Heart disease Social History Smoking/Tobacco Use Status: Former Tobacco Use Quit Date: 03/13/14 Tobacco: How many years used: 15 Second Hand Exposure: No Smoking risk assessment performed?: Yes Alcohol Intake: never Drug use: Current Sobriety Substance use type: former substance user and opiates Details: sometimes' smokes/vapes marijuana. Household members: children Housing: house Number of Children: 2 Communication Needs: None current occupation: works [employer] Current gender identity: male What type of physical activity do you participate in: none Seatbelt use: always Drive intox or ride w/intox transfer driver: No Working smoke detector in home: Yes Fire extinguisher in home: Yes Carbon monox detector in home: Yes Do you feel safe at home: Yes Do you feel safe in your relationship?: Yes
[2023-06-09 17:24] LABS: ALT 25 U/L (16-63); AST 20 U/L (15-37); Albumin 3.7 g/dL (3.4-5.0); Alkaline Phosphatase 61 U/L (46-116); Anion Gap 10.4 mmol/L (3-11); BUN 21 mg/dL (7-18); Bilirubin, Total 0.4 mg/dL (0.2-1.0); CO2 26.6 mmol/L (21.0-32.0); Calcium 8.7 mg/dL (8.5-10.1); Chloride 102 mmol/L (98-107); Estimated GFR 95.77 (mL/min/1.73m2); Glucose 106 mg/dL (74-106); Magnesium 1.6 mg/dL (1.8-2.4); Sodium 139 mmol/L (136-145); Total Protein 7.7 g/dL (6.4-8.2); Troponin I < 50 ng/L (< or =60)
[2023-06-09 17:33] LABS: COVID-19 PCR Negative (Negative); Influenza A PCR Negative (Negative); Influenza B PCR Positive (Negative); RSV PCR Negative (Negative); Source Nasopharynx
[2023-06-09 18:01] LABS: Bilirubin Negative (Negative); Blood Trace-intact (Negative); Clarity Clear (Clear); Glucose Negative (Negative); Ketones 40 mg/dL (Negative); Leukocyte Esterase Negative (Negative); Nitrite Negative (Negative); Specific Gravity >= 1.030 (1.005-1.025); pH 5.5 (5-8)
[2023-06-09 18:07] LABS: WBC 0-2 HPF (0-5)
[2023-06-09 18:08] LABS: Bacteria Negative HPF (Negative); C & S Indicated? No; Casts Negative LPF (Negative); Crystals Negative HPF (Negative); Epithelial Cells Negative HPF (Negative); Mucus Moderate (Negative); RBC 0-2 HPF (0-2)
--- NOTE | 2023-06-09 23:11 | NUR.NOTE ---
Pt placed on care management referral list for F/U for PCP, pt is flu positive and unknown cause of Anemia, to be seen as soon as possible Nursing Note:
== END 2023-06-09 19:14 | disposition left against medical advice (07) ==
PROVIDERS: Emergency Provider Student in an Organized Health Care Education/Training Program; PCP Family Medicine
DX: J10.1 Influenza due to other identified influenza virus with other respiratory manifestations (principal); R80.9 Proteinuria, unspecified; E87.6 Hypokalemia; E83.42 Hypomagnesemia; D64.9 Anemia, unspecified; Z53.29 Procedure and treatment not carried out because of patient's decision for other reasons
CPT/HCPCS: 80053; 87637; 96374; 96375; 99284; 71045; 81003; 81015; 83735; 84484; 85025; J0131; J2405

== ENCOUNTER 2023-06-11 10:06 | Emergency (ER) | payer OTHER, SELFPAY ==
--- NOTE | 2023-06-11 10:08 | W.ED.GENAD ---
Discharge Plan Disposition Patient Disposition: Home Discharge Details Clinical Impression: Influenza A, Normocytic anemia, Acute hypokalemia, Hypomagnesemia Primary Care Provider: Yang Bejarano ED Provider: Kye Krueger Home Meds and New Rx's Prescriptions: New ondansetron 4 mg tablet,disintegrating 4 mg PO BID 5 Days Qty: 10 0RF Continued clonazepam 0.5 mg tablet 0.5 mg PO TID MDD 1.5 mg PRN (Reason: anxiety) Qty: 90 3RF buprenorphine-naloxone 2-0.5 mg tablet, sublingual 2 tab sublingual BID MDD 8 mg buprenorphine Qty: 112 3RF sildenafil 50 mg tablet 50 mg PO DAILY PRN (Reason: sexual activity) Qty: 14 6RF Rx Instructions: administer 30 minutes to 4 hours before activity gabapentin 300 mg capsule 300 mg PO TID Qty: 270 3RF metoprolol succinate 25 mg tablet extended release 24 hr 25 mg PO DAILY Qty: 90 3RF Discharge Instructions Instructions: Anemia (ED) Additional Instructions: You were seen in the emergency department for your flu infection. You are receiving a medication for nausea which you should take as directed. If you do not urinate at least once every 8 hours while awake, as we discussed, please return to the emergency department. Otherwise, please follow-up with your primary care provider next week concerning your low red blood cell count??microcytic anemia Discharge Data Discharge Date/Time-TO BE ENTERED AT DEPARTURE: 06/11/23 12:54 HPI General Date/Time Provider Initiated Documentation: 06/11/23 10:08. HPI Narrative: MDM This is an overall very well-appearing normothermic and not tachycardic 43-year-old male with recent influenza diagnosis now with nausea and vomiting concerning for the possibility of dehydration for which we will obtain lab work. No focal auscultatory abnormalities to suggest pneumonia and no hypoxia so I did not obtain a chest x-ray as I was concerned for the possibility of false positives. Specifically if patient was found to have an infiltrate this would most likely be viral in the setting of his overall well appearance and his viral process. As result I did did not want to risk exposure to side effects from antibiotics if he was found to have infiltrate on x-ray. No pain out of proportion to suggest necrotizing soft tissue infection. Patient does endorse some tingling hands and was reportedly anxious on assessment. He certainly could have transient hypocalcemia given his tachypnea associated with anxiety. I considered PE however the patient is PERC negative so I did not send a D-dimer. Given his cough with several seconds of chest pain I was not suspicious for ACS so I did not obtain an ECG nor troponin. I considered sepsis however the patient is quite well-appearing. Given that he had a bowel movement this morning I am not suspicious for small bowel obstruction. Given his viral process I did not draw blood cultures nor check a lactate. No chest pain to suggest ACS. No dysuria nor frequency so doubt UTI. Handling secretions so doubt epiglottitis. Nontoxic-appearing so doubt bacterial tracheitis. Uvula midline so doubt peritonsillar abscess. Good range of motion in neck so doubt retropharyngeal abscess. Patient was mildly hypokalemic and hypomagnesemic last week. Based on the duration of time since his symptoms began no indication for oseltamavir. Will repeat these labs. Given soft nontender abdomen I am not concerned for intra-abdominal infection. Specifically patient did have an endoscopy performed last month but given a soft nontender abdomen I was not concerned for perforation so I did not feel that the patient required a CT scan. If patient becomes tachycardic will consider redosing home metoprolol. 10:40 AM CBC shows persistent normocytic anemia. No leukocytosis. No thrombocytopenia. Patient has been referred for outpatient primary care follow-up next week from his ED visit 2 days ago to further evaluate his anemia. I met with the patient and explained his anemia. He denied NSAID use. He denied aspirin use. He denied black or bloody stools. I advised PCP follow-up and return to the ED for syncope or any black or bloody stools. 10:56 AM Patient was found to have moderate hypokalemia with a serum potassium of 2.8 mmol/L for which he will receive both oral and IV repletion following an ECG to assess for QTc prolongation.Mild anion gap acidosis. No ANGELICA. Given no ANGELICA will also treat with 15 mg of ketorolac. Mild hypomagnesemia for which patient will receive oral and IV repletion. Serum magnesium 1.6 milligrams per deciliter. Mild hyperglycemia and mild anion gap but normal bicarbonate??not consistent with DKA. 11:15 AM Patient was still slightly nauseous for which I treated him with an additional 1.25 mg of droperidol. 11:42 AM Patient felt improved. He tolerated p.o. in the ED. On repeat assessment his vital signs heart rate was 84. His blood pressure was 122/69. 12:15 PM Patient transiently had an increased temperature but was in a warm room under numerous blankets. His temperature was repeated. It was normal. Patient tolerated p.o. in the ED. Given that he was not vomiting I did not feel that he required reassessment of his potassium as he was not on any hydrochlorothiazide's and was tolerating p.o. Patient and I discussed return to the ED for less than 1 episode of urinating every 8 hours while awake any inability to tolerate p.o. as result of nausea vomiting or any syncope. Patient understood his return indications and was discharged with an empiric trial of expectant outpatient management. Chronic conditions affecting the care of the patient: Cyclical vomiting anxiety History obtained from an outside historian: N/A External record review: N/A Medications: Droperidol acetaminophen IV fluids Social determinants of health affecting disposition: N/A Management discussed with: N/A ECG interpretation: Narrow complex normal sinus rhythm at a rate of 70. Normal axis. Intervals within normal limits. No ST segment abnormalities beyond ST segment flattening in V3 through V6. No prior for comparison. No acute injury pattern. Treatment/interventions considered: N/A Response to therapies provided: Improved symptoms and resolved fever in the ED HPI This is a 43-year-old male with recent diagnosis of influenza arrived to the emergency department via private vehicle in the setting of nausea vomiting and shortness of breath. Patient reports that for the past 7 days he has been nauseous and vomiting. He reports that 2 of his daughters were recently sick with a febrile illness that lasted 1 to 2 days and resolved. Patient was seen in the emergency department 2 days ago. He was diagnosed with influenza and was treated with IV fluids and acetaminophen and left AGAINST MEDICAL ADVICE. His chest x-ray showed no infiltrate. His labs were notable for very mild hypokalemia and mild hypomagnesemia. He has been having a cough. He intermittently has had a cough. When he coughs he has intermittently had some chest pain. His chest pain lasts for several seconds. He reports that he has been vomiting 5-15 times per day. He denies hematemesis. He has a remote history of a hernia repair. He did have a normal bowel movement this morning. He did urinate this morning. He did not receive his influenza vaccine this morning. He has no history of inflammatory bowel disease. He works for [employer]. He denies routine tobacco, ethanol, and illicits. He did not take his home metoprolol this morning. Exam General: Well-appearing in no acute distress speaking in complete sentences. Head: Normocephalic, atraumatic. Eye: Extraocular eye movements intact. No conjunctival injection. No scleral icterus. Ear, nose, mouth, throat: Grossly normal inspection. Normal voice, handling secretions normally.Moist mucous membranes. Uvula midline. No significant posterior oropharynx erythema. Neck: Trachea midline. Cardiovascular: Well-perfused distal extremities. Regular rate and rhythm. Respiratory: Nonlabored respiration. Clear lungs bilaterally. Gastrointestinal: Nondistended abdomen. Soft nontender. Musculoskeletal: No edema. Moving all 4 extremities spontaneously. Skin: Normal for age and race, grossly normal temperature and turgor. No acute rash. Neurologic: Alert and appropriate, no apparent acute deficits. Psychiatric: Mood and manner are appropriate. Grooming and personal hygiene are appropriate. Related Data Home Medications Medication Instructions Recorded Confirmed sildenafil 50 mg tablet 50 mg PO DAILY PRN sexual activity 02/14/22 06/09/23 #14 tabs gabapentin 300 mg capsule 300 mg PO TID #270 caps 12/08/22 06/09/23 metoprolol succinate 25 mg 25 mg PO DAILY #90 tabs 04/04/23 06/09/23 tablet,extended release 24 hr buprenorphine 2 mg-naloxone 0.5 mg 2 tab sublingual BID #112 tabs 04/24/23 06/09/23 sublingual tablet clonazepam 0.5 mg tablet 0.5 mg PO TID PRN anxiety #90 tabs 04/24/23 06/09/23 ondansetron 4 mg disintegrating 4 mg PO BID 5 days #10 tabs 06/11/23 tablet Previous Rx's Medication Instructions Recorded sildenafil 50 mg tablet 50 mg PO DAILY PRN sexual activity 02/14/22 #14 tabs gabapentin 300 mg capsule 300 mg PO TID #270 caps 12/08/22 metoprolol succinate 25 mg 25 mg PO DAILY #90 tabs 04/04/23 tablet,extended release 24 hr buprenorphine 2 mg-naloxone 0.5 mg 2 tab sublingual BID #112 tabs 04/24/23 sublingual tablet clonazepam 0.5 mg tablet 0.5 mg PO TID PRN anxiety #90 tabs 04/24/23 ondansetron 4 mg disintegrating 4 mg PO BID 5 days #10 tabs 06/11/23 tablet Allergies Allergy/AdvReac Type Severity Reaction Status Date / Time No Known Allergies Allergy Verified 06/11/23 10:14 General ANGELINA: 3 Medical Decision Making Quality:SDOH Health Related Social Needs: No Data to Display PFSH All Active Problems (Updated 06/11/23 @ 10:59 by Kye Krueger MD) Hypomagnesemia (Acute) Acute hypokalemia (Acute) Normocytic anemia (Acute) Influenza A (Acute) Hypomagnesemia (Acute) Hypokalemia (Acute) Proteinuria (Acute) Anemia (Chronic) Influenza A (Acute) Left arm weakness (Acute) Cervical radicular pain (Acute) Cyclic vomiting syndrome (Acute) Diarrhea (Acute) Hiatal hernia (Chronic) Acute UTI (Acute) SVT (supraventricular tachycardia) (Chronic) Inguinal hernia (Acute) 01/18/19 [facility] [place] Surgery for Evaluation of R Inguinal Hernia and future plan for laparoscopic repair. 03/25/2019 pre-anesthesia appoint at [facility] [place] Anxiety (Chronic) Diverticulosis (Acute) Uncomplicated opioid dependence (Chronic 06/01/17) Medical History Incarcerated right inguinal hernia Surgical History History of esophagogastroduodenoscopy (EGD) (~05/04/21) 04/2023-[facility] [place] -Mild,non-specific inflammation in mid-esophagus and stomach S/P right inguinal hernia repair (04/08/19) lap initial rgt hernia, direct and indirectw/ modifier mes, BARD Family History Mother No problems noted. Father Diabetes Heart disease Social History Smoking/Tobacco Use Status: Former Tobacco Use Quit Date: 03/13/14 Tobacco: How many years used: 15 Second Hand Exposure: No Smoking risk assessment performed?: Yes Alcohol Intake: never Drug use: Occasionally Substance use type: former substance user, marijuana and opiates Details: sometimes' smokes/vapes marijuana. Household members: children Housing: house Number of Children: 2 Communication Needs: None current occupation: works [employer] Current gender identity: male What type of physical activity do you participate in: none Seatbelt use: always Drive intox or ride w/intox bottom hoop driver: No Working smoke detector in home: Yes Fire extinguisher in home: Yes Carbon monox detector in home: Yes Do you feel safe at home: Yes Do you feel safe in your relationship?: Yes
[2023-06-11 10:10] VITALS: BP 134/88; PULSE 72; RESP 18; TEMP 37.8; O2SAT 100
[2023-06-11 10:36] LABS: Abs Immature Grans 0.01 10^3/uL (0.0-0.06); Absolute Basophil Count 0.01 10^3/uL (0.0-0.2); Absolute Lymphocyte Count 0.74 10^3/uL (1.2-3.4); Absolute Monocyte Count 0.53 10^3/uL (0.1-0.8); Absolute Neutrophil Count 4.84 10^3/uL (1.2-6.7); Basophils % 0.2; HCT 29.6 % (40.0-50.0); HGB 9.6 g/dL (13.5-17.5); Immature Grans % 0.2; Lymphocytes % 12.1; MCH 28.1 pg (27.0-33.0); MCHC 32.4 % (32.0-36.0); MCV 87 fL (80-95); MPV 9.4 fL (8.0-11.0); Monocytes % 8.6; Neutrophils % 78.9; Platelet Count 205 10^3/uL (130-400); RBC 3.42 10^6/uL (4.36-5.78); RDW 13.5 % (11.8-14.1); RDW-SD 42.5 fL; WBC 6.13 10^3/uL (4.4-10.8)
[2023-06-11] MEDS: Normal Saline 1,000 ML 1000 ML IV (10:36)
[2023-06-11] MEDS: ACETAMINOPHEN 1,000 MG/100 ML BTL 400 MG IVPB (10:37)
[2023-06-11] MEDS: Droperidol 5 MG/2 ML VIAL 1.25 MG IVP ×2 (10:37→11:28)
[2023-06-11 10:45] LABS: Anion Gap 13.7 mmol/L (3-11); BUN 21 mg/dL (7-18); CO2 24.3 mmol/L (21.0-32.0); Calcium 8.8 mg/dL (8.5-10.1); Chloride 104 mmol/L (98-107); Estimated GFR 95.77 (mL/min/1.73m2); Glucose 108 mg/dL (74-106); Magnesium 1.6 mg/dL (1.8-2.4); Sodium 142 mmol/L (136-145)
--- NOTE | 2023-06-11 10:45 | RT.EKG_ITS ---
APPROVED REPORT Exam: Resting ECG Reason for Exam: Hypokalemia Patient Location: E HR:70 bpm ECG Measurements Heart Rate 70 AXIS VT 165 P 72 QRSd 97 QRS 11 QT 386 T 29 QTc 416 Conclusion Sinus rhythm...normal P axis, V-rate 60- 99 Narrow complex normal sinus rhythm at a rate of 70. Normal axis. Intervals within normal limits. N o ST segment abnormalities beyond ST segment flattening in V3 through V6. No prior for comparison. No acute injury pattern.
[2023-06-11 10:54] LABS: Potassium 2.8 mmol/L (3.5-5.1)
[2023-06-11] MEDS: POTASSIUM CHLORIDE 20 MEQ/100 ML BAG 50 MEQ IVPB (11:20)
[2023-06-11] MEDS: Ketorolac 15 MG/ML VIAL IVP (11:28)
[2023-06-11] MEDS: Magnesium Oxide 400 MG TAB PO (11:38)
[2023-06-11] MEDS: Potassium Bicarbonate/Cit AC 25 MEQ TABLET.EFF 50 MEQ PO (11:38)
[2023-06-11] MEDS: MAGNESIUM SULFATE 2 GM/50 ML BAG IVPB (11:44)
[2023-06-11 11:49] VITALS: BP 128/65; PULSE 73; RESP 18; TEMP 38.8; O2SAT 96
[2023-06-11 12:17] VITALS: TEMP 37.6
[2023-06-11 12:27] VITALS: PULSE 71; RESP 20; TEMP 37.6; O2SAT 94
[2023-06-11 12:52] VITALS: BP 118/64; PULSE 71; RESP 20; TEMP 37.6
--- NOTE | 2023-06-11 12:55 | NUR.NOTE ---
Nursing Note: pt states he feels better at time of dicharge, and was able to ambulate to BR to urinate. PO challenge with gingeale and crackers tolerated well.
== END 2023-06-11 12:54 | disposition home or self-care (01) ==
PROVIDERS: Emergency Provider Emergency Medicine; PCP Family Medicine
DX: J10.1 Influenza due to other identified influenza virus with other respiratory manifestations (principal); D64.9 Anemia, unspecified; E87.6 Hypokalemia; E83.42 Hypomagnesemia
CPT/HCPCS: 36415; 80048; 93005; 96365; 96366; 96368; 96375; 96376; 99284; 83735; 85025; 93010; J0131; J1790; J1885; J3475; J3480

== ENCOUNTER 2023-06-26 18:00 | Outpatient (CLI) | payer OTHER, SELFPAY ==
[2023-06-26 16:30] LABS: Abs Immature Grans 0.01 10^3/uL (0.0-0.06); Absolute Basophil Count 0.04 10^3/uL (0.0-0.2); Absolute Eosinophil Count 0.02 10^3/uL (0.0-0.7); Absolute Lymphocyte Count 2.28 10^3/uL (1.2-3.4); Absolute Monocyte Count 0.39 10^3/uL (0.1-0.8); Absolute Neutrophil Count 2.06 10^3/uL (1.2-6.7); Basophils % 0.8; Eosinophils % 0.4; HCT 29.2 % (40.0-50.0); HGB 9.1 g/dL (13.5-17.5); Immature Grans % 0.2; Lymphocytes % 47.5; MCH 28.4 pg (27.0-33.0); MCHC 31.2 % (32.0-36.0); MCV 91 fL (80-95); MPV 8.9 fL (8.0-11.0); Monocytes % 8.1; RDW 14.6 % (11.8-14.1)
[2023-06-26 16:40] LABS: Anion Gap 6.8 mmol/L (3-11); BUN 12 mg/dL (7-18); CO2 31.2 mmol/L (21.0-32.0); CREATININE 0.8 mg/dL (0.70-1.30); Calcium 8.7 mg/dL (8.5-10.1); Chloride 106 mmol/L (98-107); Estimated GFR 112.61 (mL/min/1.73m2); Glucose 99 mg/dL (74-106); Potassium 3.8 mmol/L (3.5-5.1); Sodium 144 mmol/L (136-145)
[2023-06-26 16:44] LABS: Diff Comment PLT Morph Reviewed; Platelet Count 746 10^3/uL (130-400); RBC Morphology Normal
== END 2023-06-26 18:01 | disposition home or self-care (01) ==
LOC: LBO 18:00
PROVIDERS: PCP Family Medicine; Visit Provider Family Medicine
DX: K85.90 Acute pancreatitis without necrosis or infection, unspecified (principal)
CPT/HCPCS: 36415; 80048; 85025

== ENCOUNTER 2023-07-17 20:08 | Emergency (ER) | payer OTHER, SELFPAY ==
[2023-07-17] VITALS (8 sets, daily range): BP systolic 104–152; BP diastolic 50–91; PULSE 57–82; RESP 14–18; TEMP 36.5–36.7; O2SAT 98–100
--- NOTE | 2023-07-17 20:00 | RT.EKG_ITS ---
APPROVED REPORT Exam: Resting ECG Reason for Exam: SOB Patient Location: E HR:65 bpm ECG Measurements Heart Rate 65 AXIS AK 175 P 48 QRSd 99 QRS -1 QT 413 T 6 QTc 430 Conclusion Sinus rhythm 65 normal axis
--- NOTE | 2023-07-17 20:30 | ED.GENADUL_ITS ---
Discharge Plan Disposition Patient Disposition: Home Discharge Details Clinical Impression: Headache Primary Care Provider: Yang Bejarano ED Provider: Lou Wen Home Meds and New Rx's Prescriptions: No Action clonazepam 0.5 mg tablet 0.5 mg PO TID MDD 1.5 mg PRN (Reason: anxiety) Qty: 90 3RF buprenorphine-naloxone 2-0.5 mg tablet, sublingual 2 tab sublingual BID MDD 8 mg buprenorphine Qty: 112 3RF metoprolol succinate 25 mg tablet extended release 24 hr 25 mg PO DAILY Qty: 90 3RF ondansetron 4 mg tablet,disintegrating 4 mg PO Q8H PRN (Reason: nausea and vomiting) Qty: 90 0RF Discharge Instructions Additional Instructions: Please call Dr. Bejarano's office first thing in the morning to schedule follow-up appointment to discuss today's emergency department visit Stay well-hydrated, drinking plenty of fluids throughout the next few days. You may use Tylenol or ibuprofen as needed for headache/sore throat. Eat a gentle diet. Return to emergency care if you develop new severe headache, vision changes, episodes of passing out, chest pain, difficulty breathing, uncontrollable vomiting, severe abdominal pain, or if you are very worried and need to be rechecked again immediately Referrals: Yang Bejarano DO [Primary Care Provider] - HPI General Date/Time Provider Initiated Documentation: 07/17/23 20:10 . HPI Narrative: Edwar is a 43-year-old male who presents to the emergency department today for evaluation of onset of headache to the L side of his head with photophobia, phonophobia, nausea; sx started this afternoon. This is accompanied by a feeling of shortness of breath, which he attributes to the nausea. He also reports lower abdominal discomfort, congestion, sore throat, and chills. He did have an episode of short-lived chest discomfort that was not accompanied by any other notable symptoms such as diaphoresis, pain did not radiate from his left side of his chest. Denies fever, vision changes, difficulty breathing, change in PO intake, change in bowel/bladder function (does have diarrhea at baseline). He says that he gets these sometimes. He was recently discharged from [facility] for pancreatitis;denies h/o ETOH use. Denies recent ill contacts. Does have a h/o migraine headaches, tried tylenol today without improvement in symptoms. Related Data Home Medications Medication Instructions Recorded Confirmed metoprolol succinate 25 mg 25 mg PO DAILY #90 tabs 04/04/23 07/17/23 tablet,extended release 24 hr buprenorphine 2 mg-naloxone 0.5 mg 2 tab sublingual BID #112 tabs 04/24/23 07/17/23 sublingual tablet clonazepam 0.5 mg tablet 0.5 mg PO TID PRN anxiety #90 tabs 04/24/23 07/17/23 ondansetron 4 mg disintegrating 4 mg PO Q8H PRN nausea and 07/06/23 07/17/23 tablet vomiting #90 tabs Previous Rx's Medication Instructions Recorded metoprolol succinate 25 mg 25 mg PO DAILY #90 tabs 04/04/23 tablet,extended release 24 hr buprenorphine 2 mg-naloxone 0.5 mg 2 tab sublingual BID #112 tabs 04/24/23 sublingual tablet clonazepam 0.5 mg tablet 0.5 mg PO TID PRN anxiety #90 tabs 04/24/23 ondansetron 4 mg disintegrating 4 mg PO Q8H PRN nausea and 07/06/23 tablet vomiting #90 tabs Allergies Allergy/AdvReac Type Severity Reaction Status Date / Time No Known Allergies Allergy Verified 07/17/23 20:19 General Stated Complaint: Headache ANGELINA: 3 Review of Systems Narrative: see HPI Exam Const General: cooperative, comfortable, no acute distress, well developed and well groomed Nutritional Appearance: average body habitus Limitations: mental status not altered HENOK Head: normal to inspection and normocephalic Ears: hearing grossly normal bilaterally General nose exam: external nose normal Face and sinus: normal facial exam Mouth: oral mucosae normal and moist mucous membranes Teeth and gingiva: dentition normal Throat: posterior oropharynx normal Eyes Pupils: PERRL EOM: EOM intact bilaterally Neck Neck: normal visual inspection, full ROM and no meningeal signs Resp Effort & Inspection: normal respiratory effort and able to speak in complete sentences Auscultation: clear to auscultation bilaterally Cardio Rate: regular rate Rhythm: regular rhythm GI Inspection: normal to inspection Palpation: soft, not rigid and nontender Auscultation: normal bowel sounds Neuro General: no meningeal signs Cranial Nerves: CN's II-XI intact bilaterally, accommodation normal and no nystagmus Cognition: normal cognition Speech: speech normal Gait: normal gait Motor: muscle tone normal throughout and strength 5/5 throughout Course Vital Signs Vital signs: Vital Signs Temperature 36.5 C 07/17/23 20:12 Pulse 66 07/17/23 20:12 Respiratory Rate 18 07/17/23 20:12 Blood Pressure 142/91 H 07/17/23 20:12 Pulse Oximetry 100 07/17/23 20:12 Temperature 36.5 C 07/17/23 20:12 Temperature Source Temporal Artery Scan 07/17/23 20:12 Pulse 66 07/17/23 20:12 Respiratory Rate 18 07/17/23 20:12 Respiratory Effort Normal, Non-Labored 07/17/23 20:18 Blood Pressure 142/91 H 07/17/23 20:12 Blood Pressure Position Supine 07/17/23 20:12 Pulse Oximetry 100 07/17/23 20:12 Oxygen Delivery Method Room Air 07/17/23 20:12 Oxygen Flow Rate 0 07/17/23 20:12 Pain Level 10 07/17/23 20:12 Comment headache 07/17/23 20:12 Medical Decision Making Edwar is a 43-year-old male who presents to the emergency department today for evaluation of onset of headache to the L side of his head with photophobia, phonophobia, nausea; sx started this afternoon. This is accompanied by a feeling of shortness of breath, which he attributes to the nausea. He also reports lower abdominal discomfort, congestion, sore throat, and chills. He did have an episode of short-lived chest discomfort that was not accompanied by any other notable symptoms such as diaphoresis, pain did not radiate from his left side of his chest. Denies fever, vision changes, difficulty breathing, change in PO intake, change in bowel/bladder function (does have diarrhea at baseline). He says that he gets these sometimes. He was recently discharged from [facility] for pancreatitis;denies h/o ETOH use. Denies recent ill contacts. Does have a h/o migraine headaches, tried tylenol today without improvement in symptoms. Physical exam very reassuring. Patient is alert and oriented, in no acute distress. Clear speech, easily conversational. He does appear anxious. PERRL, EOMs intact. Moving all extremities equally. Easy work of breathing, lung sounds clear bilaterally. Normal heart sounds. Abdomen is soft, nondistended, nontender to palpation with normoactive bowel sounds. Cranial nerves II through XII intact as tested. Normal gait, finger finger, finger-nose, rapid alternating movements, [id number], tandem gait, Romberg. DDx includes but is not limited to: viral illness, migraine headache, dehydration, cardiac arrhythmia, electrolyte imbalance. No red flags on history or physical exam concerning for serious etiology of headache such as intracranial hemorrhage, meningitis, or intracranial mass indicating need for emergent diagnostic imaging. I independently interpreted the following tests: EKG reassuring, NSR rate 65. No changes c/w acute ischemia. CBC reassuring (mild anemia, unchanged from previous); unremarkable CMP, magnesium, lipase, and troponin. Very low suspicion for cardiac etiology, a single troponin was reassuring for workup. While in the emergency department Edwar received IV fluids, Reglan, and diphenhydramine for him migraine treatment with good improvement of headache from 10/10 to 4/10, with full resolution of lightheadedness, phonophobia, and nausea. He declined dexamethasone. Toradol was given, Edwar reports headache feels better and he feels good to go home. Likely viral illness as etiology of headache, though uncomplicated migraine also likely. Overall workup today reassuring. Reviewed discharge instructions with patient, including symptomatic management and red flags indicate need for return to emergency care. Recommend follow-up with PCP for ED follow-up visit. Quality:[facility] Health Related Social Needs: No Data to Display PFSH All Active Problems (Updated 07/17/23 @ 22:32 by Lou Bird) Headache (Acute) Chronic diarrhea (Acute) Pancreatitis (Chronic) [facility] 06/14/23 - 06/17/23 Hypophosphatasia (Acute) [facility] 06/14/23 - 06/17/23 Left arm weakness (Acute) Cervical radicular pain (Acute) Cyclic vomiting syndrome (Acute) Diarrhea (Acute) Hiatal hernia (Chronic) Acute UTI (Acute) SVT (supraventricular tachycardia) (Chronic) Inguinal hernia (Acute) 01/18/19 [facility] General Surgery for Evaluation of R Inguinal Hernia and future plan for laparoscopic repair. 03/25/2019 pre-anesthesia appoint at [facility] Anxiety (Chronic) Diverticulosis (Acute) Uncomplicated opioid dependence (Chronic 06/01/17) Medical History Incarcerated right inguinal hernia Surgical History History of esophagogastroduodenoscopy (EGD) (~05/04/21) 04/2023-[facility] -Mild,non-specific inflammation in mid-esophagus and stomach S/P right inguinal hernia repair (04/08/19) lap initial rgt hernia, direct and indirectw/ modifier mes, BARD Family History Mother No problems noted. Father Diabetes Heart disease Social History Smoking/Tobacco Use Status: Former Tobacco Use Quit Date: 03/13/14 Tobacco: How many years used: 15 Second Hand Exposure: No Smoking risk assessment performed?: Yes Alcohol Intake: never Drug use: Occasionally Substance use type: former substance user and opiates Details: sometimes' smokes/vapes marijuana. 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
--- NOTE | 2023-07-17 20:41 | NUR.NOTE ---
Per [facility]una, obtained d/c records from [facility] [place] for ER visit tonight.Nursing Note:
[2023-07-17] MEDS: Metoclopramide 10 MG/2 ML VIAL IVP (20:49)
[2023-07-17] MEDS: diphenhydrAMINE 50 MG/ML VIAL 25 MG IVP (20:49)
[2023-07-17] MEDS: Normal Saline 1,000 ML 1000 ML IV (20:50)
[2023-07-17 20:53] LABS: Abs Immature Grans 0.01 10^3/uL (0.0-0.06); Absolute Basophil Count 0.05 10^3/uL (0.0-0.2); Absolute Eosinophil Count 0.16 10^3/uL (0.0-0.7); Absolute Lymphocyte Count 2.07 10^3/uL (1.2-3.4); Absolute Monocyte Count 0.44 10^3/uL (0.1-0.8); Absolute Neutrophil Count 3.59 10^3/uL (1.2-6.7); Basophils % 0.8 %; Eosinophils % 2.5 %; HCT 30.3 % (40.0-50.0); HGB 10.2 g/dL (13.5-17.5); Immature Grans % 0.2 %; Lymphocytes % 32.8 %; MCHC 33.7 % (32.0-36.0); MCV 89 fL (80-95); MPV 8.9 fL (8.0-11.0); Neutrophils % 56.7 %; Platelet Count 251 10^3/uL (130-400); RDW 15.1 % (11.8-14.1); RDW-SD 49.5 fL; WBC 6.32 10^3/uL (4.4-10.8)
[2023-07-17 21:11] LABS: Albumin 3.9 g/dL (3.4-5.0); Alkaline Phosphatase 49 U/L (46-116); Anion Gap 10.7 mmol/L (3-11); BUN 13 mg/dL (7-18); Bilirubin, Total 0.2 mg/dL (0.2-1.0); CO2 28.3 mmol/L (21.0-32.0); CREATININE 0.9 mg/dL (0.70-1.30); Chloride 106 mmol/L (98-107); Estimated GFR 108.68 (mL/min/1.73m2); Glucose 127 mg/dL (74-106); Lipase 83 U/L (16-77); Magnesium 1.8 mg/dL (1.8-2.4); Potassium 3.5 mmol/L (3.5-5.1); Sodium 145 mmol/L (136-145); Total Protein 7.3 g/dL (6.4-8.2); Troponin I < 50 ng/L (< or =60)
[2023-07-17 21:24] LABS: ALT 17 U/L (16-63); AST 11 U/L (15-37)
[2023-07-17 21:44] LABS: COVID-19 PCR Negative (Negative); Influenza A PCR Negative (Negative); Influenza B PCR Negative (Negative); RSV PCR Negative (Negative)
[2023-07-17 21:45] LABS: Source Nasopharynx
[2023-07-17] MEDS: Ketorolac 15 MG/ML VIAL IVP (21:56)
--- NOTE | 2023-07-18 00:08 | NUR.NOTE ---
Pt placed on care management referral list to be seen within 1-2 weeks by PCP for Headache
== END 2023-07-17 23:04 | disposition home or self-care (01) ==
PROVIDERS: Emergency Provider Nurse Practitioner Family; PCP Family Medicine
DX: R51.9 Headache, unspecified (principal); R06.02 Shortness of breath; R11.0 Nausea; R10.30 Lower abdominal pain, unspecified; R07.0 Pain in throat; R07.89 Other chest pain
CPT/HCPCS: 80053; 83690; 87637; 93005; 96361; 96374; 96375; 99284; 83735; 84484; 85025; 93010; 99283; J1200; J1885; J2765

== ENCOUNTER → 2023-08-04 00:57 | Outpatient (CLI) | payer OTHER, SELFPAY ==
--- NOTE | 2023-08-04 07:15 | DI.MRI_ITS ---
Exam(s) MR CERVICAL SPINE WO EXAM: MR CERVICAL SPINE WO CLINICAL HISTORY: cervical radicular pain, left arm weakness,M54.12,r29.898 TECHNIQUE: Multiplanar multisequence MRI of the cervical spine was performed without intravenous con trast. COMPARISON: CR XR CERVICAL SPINE COMP 4-5V from 01/31/2020 FINDINGS: BONES: Vertebral body heights are maintained. Alignment is normal. Bone marrow signal intensity is wi thin normal limits. CERVICAL CORD: Craniovertebral junction is unremarkable. The cervical cord is normal size and signal intensity. SOFT TISSUES: Unremarkable. C2-3: No disc herniation or bulge is identified. No evidence of neural foraminal narrowing. No signi ficant central canal stenosis. C3-4: Prominent right-sided endplate osteophytes projecting into the right neural foramen, causing se neva stenosis. No evidence of left neural foraminal narrowing. No significant central canal stenosis . C4-5: No disc herniation or bulge is identified. No evidence of neural foraminal narrowing. No signif icant central canal stenosis. C5-6: No disc herniation or bulge is identified. No evidence of neural foraminal narrowing. No signif icant central canal stenosis. C6-7: Mild loss of disc height. Endplate osteophytes projecting mainly laterally, causing bilateral neural foraminal narrowing. . No significant central canal stenosis. C7-T1: No disc herniation or bulge is identified. No evidence of neural foraminal narrowing. No signi ficant central canal stenosis. IMPRESSION: Severe right neural foraminal narrowing at C3-4 secondary to large endplate osteophytes. Moderate bilateral neural foraminal narrowing at C5-6 secondary to small endplate osteophytes. DATA REPOSITORY:
== END ==
PROVIDERS: PCP Family Medicine; Visit Provider Emergency Medicine
DX: M54.12 Radiculopathy, cervical region (principal); R29.898 Other symptoms and signs involving the musculoskeletal system
CPT/HCPCS: 72141

== ENCOUNTER 2024-03-19 20:21 | Emergency (ER) | payer OTHER, SELFPAY ==
[2024-03-19 20:24] VITALS: BP 134/79; PULSE 80; RESP 20; TEMP 37; O2SAT 98
[2024-03-19 20:40] VITALS: BP 134/85; PULSE 73; RESP 21; TEMP 37.2; O2SAT 95
[2024-03-19 21:02] LABS: Lactate 0.6 mmol/L (0.6-1.4)
[2024-03-19 21:04] LABS: Abs Immature Grans 0.02 10^3/uL (0.0-0.06); Absolute Basophil Count 0.07 10^3/uL (0.0-0.2); Absolute Eosinophil Count 0.14 10^3/uL (0.0-0.7); Absolute Lymphocyte Count 3.51 10^3/uL (1.2-3.4); Absolute Monocyte Count 0.68 10^3/uL (0.1-0.8); Absolute Neutrophil Count 3.48 10^3/uL (1.2-6.7); Basophils % 0.9 %; Eosinophils % 1.8 %; HCT 32.6 % (40.0-50.0); HGB 10.6 g/dL (13.5-17.5); Immature Grans % 0.3 %; Lymphocytes % 44.4 %; MCHC 32.5 % (32.0-36.0); MCV 92 fL (80-95); Monocytes % 8.6 %; Platelet Count 348 10^3/uL (130-400); RBC 3.53 10^6/uL (4.36-5.78); RDW 13.7 % (11.8-14.1); RDW-SD 46.5 fL
[2024-03-19 21:20] LABS: ALT 19 U/L (16-63); AST 18 U/L (15-37); Alkaline Phosphatase 54 U/L (46-116); Anion Gap 3.3 mmol/L (3-11); BUN 15 mg/dL (7-18); Bilirubin, Total 0.23 mg/dL (0.2-1.0); CO2 31.7 mmol/L (21.0-32.0); CREATININE 1.1 mg/dL (0.70-1.30); Chloride 109 mmol/L (98-107); Estimated GFR 84.89 (mL/min/1.73m2); Glucose 85 mg/dL (74-106); Lipase 51 U/L (<78); Magnesium 2.1 mg/dL (1.8-2.4); Potassium 3.6 mmol/L (3.5-5.1); Sodium 144 mmol/L (136-145); Total Protein 7.6 g/dL (6.4-8.2)
[2024-03-19 21:23] LABS: Bilirubin Negative (Negative); Blood Negative (Negative); Clarity Sl Cloudy (Clear); Glucose Negative (Negative); Ketones Negative (Negative); Leukocyte Esterase Negative (Negative); Nitrite Negative (Negative); Urobilinogen 0.2 mg/dL (Up to 0.2); pH 5.5 (5-8)
--- NOTE | 2024-03-19 21:43 | W.ED.GENAD ---
Discharge Plan Disposition Patient Disposition: Home Condition: Good Discharge Details Chief Complaint: Abd Prob Clinical Impression: Abdominal pain, epigastric, Diarrhea Primary Care Provider: Yang Bejarano ED Provider: Charo Escalona Home Meds and New Rx's Prescriptions: Continued hydroxyzine HCl 25 mg tablet 25 mg PO TID PRN (Reason: itching) Qty: 60 0RF naloxone 4 mg/actuation spray,non-aerosol 4 mg intranasal Q2M PRN (Reason: opioid overdose) Qty: 2 0RF Rx Instructions: spray 1 dose into ONE nostril; alternate nostrils w each dose until help arrives gabapentin 300 mg capsule 300 mg PO TID Qty: 90 3RF clonazepam 0.5 mg tablet 0.5 mg PO TID MDD 1.5 mg PRN (Reason: anxiety) Qty: 90 2RF buprenorphine-naloxone 2-0.5 mg tablet, sublingual 2 tab sublingual BID MDD 8 mg buprenorphine Qty: 112 2RF nystatin 100,000 unit/gram powder 1 applic topical TID Qty: 30 0RF metoprolol succinate 25 mg tablet extended release 24 hr 25 mg PO DAILY Qty: 90 3RF ondansetron 4 mg tablet,disintegrating 4 mg PO Q8H PRN (Reason: nausea and vomiting) Qty: 90 0RF Discharge Instructions Instructions: Abdominal Pain, Adult ED, Diarrhea, Adult ED Additional Instructions: Call your primary care doctor in the morning to schedule an appointment for within the next 72 hours to followup on your visit here. Please also call your specialist at [facility] and update them on your visit and schedule a followup appointment wtih them. Return to the emergency department for new or worsening symptoms including new/different/worse abdominal pain, inability to keep down fluids, feeling lightheaded or like you are going to pass out, blood in your stool, or if you have any other concerns. Stand Alone Forms: Work Release Referrals: Yang Bejarano DO [Primary Care Provider] - [facility] General Mode of arrival: ambulatory. Date/Time Provider Initiated Documentation: 03/19/24 20:31. Limitations to Documentation: no limitations. Information obtained by: patient. HPI Narrative: 44yo M with hx prior pancreatitis, chronic diarrhea, and hiatal hernia presenting for epigastric pain and diarrhea. Reports this has been going on for about a week, feels identical to prior episode of pancreatitis one year ago. Pain in crampy, worst in the epigastrium and in the LUQ, and does not radiate. Diarrhea is watery, non-bloody. Nausea, no vomiting. Has zofran at home which is helping; is taking good PO. Spoke with his GI at [facility] and advised to present to the ED for evaluation including bloodwork. No fevers, chills, rash, dysuria, hematuria, lower abdominal pain, lightheadedness, or other concerns. Otherwise in his usual state of health. Related Data Home Medications ?Medication ?Instructions ?Recorded ?Confirmed metoprolol succinate 25 mg 25 mg PO DAILY #90 tabs 04/04/23 03/19/24 tablet,extended release 24 hr ondansetron 4 mg disintegrating 4 mg PO Q8H PRN nausea and 07/06/23 03/19/24 tablet vomiting #90 tabs hydroxyzine HCl 25 mg tablet 25 mg PO TID PRN itching #60 tabs 07/20/23 03/19/24 naloxone 4 mg/actuation nasal spray 4 mg intranasal Q2M PRN opioid 07/20/23 03/19/24 overdose #2 ea gabapentin 300 mg capsule 300 mg PO TID #90 caps 12/25/23 03/19/24 buprenorphine 2 mg-naloxone 0.5 mg 2 tab sublingual BID #112 tabs 01/08/24 03/19/24 sublingual tablet clonazepam 0.5 mg tablet 0.5 mg PO TID PRN anxiety #90 tabs 01/08/24 03/19/24 nystatin 100,000 unit/gram topical 1 applic topical TID #30 grams 02/28/24 03/19/24 powder Previous Rx's ?Medication ?Instructions ?Recorded metoprolol succinate 25 mg 25 mg PO DAILY #90 tabs 04/04/23 tablet,extended release 24 hr ondansetron 4 mg disintegrating 4 mg PO Q8H PRN nausea and 07/06/23 tablet vomiting #90 tabs hydroxyzine HCl 25 mg tablet 25 mg PO TID PRN itching #60 tabs 07/20/23 naloxone 4 mg/actuation nasal spray 4 mg intranasal Q2M PRN opioid 07/20/23 overdose #2 ea gabapentin 300 mg capsule 300 mg PO TID #90 caps 12/25/23 buprenorphine 2 mg-naloxone 0.5 mg 2 tab sublingual BID #112 tabs 01/08/24 sublingual tablet clonazepam 0.5 mg tablet 0.5 mg PO TID PRN anxiety #90 tabs 01/08/24 nystatin 100,000 unit/gram topical 1 applic topical TID #30 grams 02/28/24 powder Allergies Allergy/AdvReac Type Severity Reaction Status Date / Time No Known Allergies Allergy Verified 03/19/24 20:28 General Stated Complaint: Abd Prob ANGELINA: 3 Review of Systems Narrative: see HPI Exam Narrative Exam Narrative: General: Alert, well appearing, well nourished, in no acute distress. Head: Normocephalic, atraumatic Neck: Trachea midline, ?Neck supple. ENT: ?MMM.? No oropharygeal lesions or exudate. Cardiac: ?RRR, no murmurs appreciated Resp: No respiratory distress. CTAB. Abd: ?Soft, non-distended, tender to epigastrium with no rebound or guarding : ?No suprapubic tenderness. Extremities: ?No deformities.? No peripheral edema. Neurologic: GCS 15. ? Moves all extremities freely against gravity Course Vital Signs Vital signs: Vital Signs Temperature 37.0 C 03/19/24 20:24 Pulse 80 03/19/24 20:24 Respiratory Rate 20 03/19/24 20:24 Blood Pressure 134/79 03/19/24 20:24 Pulse Oximetry 98 03/19/24 20:24 Temperature 37.2 C 03/19/24 20:40 Temperature Source Temporal Artery Scan 03/19/24 20:40 Pulse 73 03/19/24 20:40 Respiratory Rate 21 03/19/24 20:40 Blood Pressure 134/85 03/19/24 20:40 Blood Pressure Position Sitting 03/19/24 20:40 Pulse Oximetry 95 03/19/24 20:40 Oxygen Delivery Method Room Air 03/19/24 20:40 Pain Level 2 03/19/24 20:40 Lab/Test Results Lab/Test Results: Laboratory Tests Range/Units 03/19/24 03/19/24 20:40 21:09 WBC (4.4-10.8) 10^3/uL 7.90 RBC (4.36-5.78) 10^6/uL 3.53 L Hgb (13.5-17.5) g/dL 10.6 L Hct (40.0-50.0) % 32.6 L MCV (80-95) fL 92 MCH (27.0-33.0) pg 30.0 MCHC (32.0-36.0) % 32.5 RDW (11.8-14.1) % 13.7 Plt Count (130-400) 10^3/uL 348 MPV (8.0-11.0) fL 9.0 Immature Gran % % 0.3 Neutrophils % % 44.0 Lymphocytes % % 44.4 Monocytes % % 8.6 Eosinophils % % 1.8 Basophils % % 0.9 Nucleated RBC % (0.0-0.3) % 0.0 Absolute Neutrophils (1.2-6.7) 10^3/uL 3.48 Absolute Lymphocytes (1.2-3.4) 10^3/uL 3.51 H Absolute Monocytes (0.1-0.8) 10^3/uL 0.68 Absolute Eosinophils (0.0-0.7) 10^3/uL 0.14 Absolute Basophils (0.0-0.2) 10^3/uL 0.07 VBG Lactate (0.6-1.4) mmol/L 0.6 Sodium (136-145) mmol/L 144 Potassium (3.5-5.1) mmol/L 3.6 Chloride (98-107) mmol/L 109 H Carbon Dioxide (21.0-32.0) mmol/L 31.7 Anion Gap (3-11) mmol/L 3.3 BUN (7-18) mg/dL 15 Creatinine (0.70-1.30) mg/dL 1.1 Est GFR (CKD-EPI 2020) (mL/min/1.73m2) 84.89 Glucose (74-106) mg/dL 85 Calcium (8.5-10.1) mg/dL 9.0 Magnesium (1.8-2.4) mg/dL 2.1 Total Bilirubin (0.2-1.0) mg/dL 0.23 AST (15-37) U/L 18 ALT (16-63) U/L 19 Alkaline Phosphatase (46-116) U/L 54 Total Protein (6.4-8.2) g/dL 7.6 Albumin (3.4-5.0) g/dL 4.0 Lipase (<78) U/L 51 Urine Color (Yellow) Dark Yellow Urine Clarity (Clear) Sl Cloudy Urine pH (5-8) 5.5 Ur Specific [place] (1.005-1.025) 1.020 Urine Protein (Neg-Trace) mg/dL Negative Urine Ketones (Negative) mg/dL Negative Urine Blood (Negative) Negative Urine Nitrite (Negative) Negative Urine Bilirubin (Negative) Negative Urine Urobilinogen (Up to 0.2) mg/dL 0.2 Ur Leukocyte Esterase (Negative) Negative Urine Glucose (Negative) mg/dL Negative Medical Decision Making 44yo M with hx prior pancreatitis, chronic diarrhea, and hiatal hernia presenting for mild crampy epigastric pain and diarrhea x 1 week. Nausea with no vomiting (using zofran), taking good PO. Feels identical to prior episode of pancreatitis one year ago; spoke with his GI at [facility] and advised to present to the ED for evaluation including bloodwork. Vital signs reassuring on arrival, epigastric and LUQ tenderness on exam with no rebounding or guarding. Appears well hydrated. Offered pain medication which patient declined. Labs reviewed as below, CBC reassuring with no leukocytosis and mild anemia (at baseline on [facility] record review), CMP wtih no actionable abnormalities, lipase normal, UA not infected and with no hematuria to suggest nephorlithiasis. Findings discussed with patient, continued mild epigastric tenderness on exam. After shared decision making elected to pursue CT scan to further evaluate. CT independently reviewed; ? hiatal hernia present on my view, no bowel obstruction, no significant stranding around pancreas. Radiology read with no acute findings. Results discussed with patient. He feels comfortable going home and followup with his outpatient providers which I believe is appropriate. He has enough zofran, does not any additional. Discharged home; discharge instructions and return precautions were reviewed with patient who verbalized understanding. All questions were answered and he is in full agreement with the plan. Imaging Data Radiologic Study: Imaging: CT Scan Radiologist's impression: IMPRESSION: No acute findings Lab Data Lab results reviewed: Yes I reviewed the patient's lab results. Labs: Laboratory Tests Range/Units 03/19/24 03/19/24 20:40 21:09 WBC (4.4-10.8) 10^3/uL 7.90 RBC (4.36-5.78) 10^6/uL 3.53 L Hgb (13.5-17.5) g/dL 10.6 L Hct (40.0-50.0) % 32.6 L MCV (80-95) fL 92 MCH (27.0-33.0) pg 30.0 MCHC (32.0-36.0) % 32.5 RDW (11.8-14.1) % 13.7 Plt Count (130-400) 10^3/uL 348 MPV (8.0-11.0) fL 9.0 Immature Gran % % 0.3 Neutrophils % % 44.0 Lymphocytes % % 44.4 Monocytes % % 8.6 Eosinophils % % 1.8 Basophils % % 0.9 Nucleated RBC % (0.0-0.3) % 0.0 Absolute Neutrophils (1.2-6.7) 10^3/uL 3.48 Absolute Lymphocytes (1.2-3.4) 10^3/uL 3.51 H Absolute Monocytes (0.1-0.8) 10^3/uL 0.68 Absolute Eosinophils (0.0-0.7) 10^3/uL 0.14 Absolute Basophils (0.0-0.2) 10^3/uL 0.07 VBG Lactate (0.6-1.4) mmol/L 0.6 Sodium (136-145) mmol/L 144 Potassium (3.5-5.1) mmol/L 3.6 Chloride (98-107) mmol/L 109 H Carbon Dioxide (21.0-32.0) mmol/L 31.7 Anion Gap (3-11) mmol/L 3.3 BUN (7-18) mg/dL 15 Creatinine (0.70-1.30) mg/dL 1.1 Est GFR (CKD-EPI 2020) (mL/min/1.73m2) 84.89 Glucose (74-106) mg/dL 85 Calcium (8.5-10.1) mg/dL 9.0 Magnesium (1.8-2.4) mg/dL 2.1 Total Bilirubin (0.2-1.0) mg/dL 0.23 AST (15-37) U/L 18 ALT (16-63) U/L 19 Alkaline Phosphatase (46-116) U/L 54 Total Protein (6.4-8.2) g/dL 7.6 Albumin (3.4-5.0) g/dL 4.0 Lipase (<78) U/L 51 Urine Color (Yellow) Dark Yellow Urine Clarity (Clear) Sl Cloudy Urine pH (5-8) 5.5 Ur Specific [place] (1.005-1.025) 1.020 Urine Protein (Neg-Trace) mg/dL Negative Urine Ketones (Negative) mg/dL Negative Urine Blood (Negative) Negative Urine Nitrite (Negative) Negative Urine Bilirubin (Negative) Negative Urine Urobilinogen (Up to 0.2) mg/dL 0.2 Ur Leukocyte Esterase (Negative) Negative Urine Glucose (Negative) mg/dL Negative Quality:SDOH Health Related Social Needs: No Data to Display PFSH All Active Problems (Updated 03/19/24 @ 23:03 by Charo Escalona MD) Diarrhea (Acute) Abdominal pain, epigastric (Acute) Left cervical radiculopathy (Chronic 10/13/23) Managed by [facility]; first epidural steroid injection given 01/17/2024 (Ceci Murray APRN @ [facility]) Foraminal stenosis of cervical region (Acute) Panic attacks (Acute) Low back pain (Acute) Chronic diarrhea (Acute) Pancreatitis (Chronic) [facility] 06/14/23 - 06/17/23 Hypophosphatasia (Acute) [facility] 06/14/23 - 06/17/23 Left arm weakness (Acute) Cervical radicular pain (Acute) Cyclic vomiting syndrome (Acute) Diarrhea (Acute) Hiatal hernia (Chronic) Acute UTI (Acute) SVT (supraventricular tachycardia) (Chronic) Inguinal hernia (Acute) 01/18/19 [facility] General Surgery for Evaluation of R Inguinal Hernia and future plan for laparoscopic repair. 03/25/2019 pre-anesthesia appoint at [facility] Anxiety (Chronic) Diverticulosis (Acute) Uncomplicated opioid dependence (Chronic 06/01/17) Medical History Encounter for diagnostic endoscopy (11/27/23) upper EUS [facility]-hx pancreatitis sm cystic lesion in pancreatic tail Incarcerated right inguinal hernia Surgical History History of esophagogastroduodenoscopy (EGD) (~05/04/21) 04/2023-[facility] -Mild,non-specific inflammation in mid-esophagus and stomach S/P right inguinal hernia repair (04/08/19) lap initial rgt hernia, direct and indirectw/ modifier mes, BARD Family History Mother No problems noted. Father Diabetes Heart disease Social History Smoking/Tobacco Use Status: Former Tobacco Use Quit Date: 03/13/14 Tobacco: How many years used: 15 Second Hand Exposure: No Smoking risk assessment performed?: Yes Alcohol Intake: never Drug use: Occasionally Substance use type: former substance user and opiates Details: sometimes' smokes/vapes marijuana. 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
--- NOTE | 2024-03-19 22:02 | DI.CT_ITS ---
Exam(s) CT ABDOMEN PELVIS W EXAM: CT ABDOMEN PELVIS W CLINICAL HISTORY: epigstric pain and tenderness, hx pancreatitis TECHNIQUE: Imaging Protocol: Axial computed tomography images with coronal and sagittal reformatted images were created and reviewed. CONTRAST MATERIAL: Intravenous: Omnipaque 350 Contrast volume:75 mL Oral: No COMPARISON: CT CT ABDOMEN PELVIS W from 12/03/[address] RENAL COLIC WO from 12/19/2020 FINDINGS: ABDOMEN: Lung Bases: There is small hiatal hernia present. Liver: Normal density. No measurable mass. Portal, Superior Mesenteric, and Splenic Veins: Unremarkable. Gallbladder and Biliary Tract: No radiodense calculus or dilation. Pancreas: Normal density, no abnormal calcifications or inflammatory process. Spleen: There are stable hypodense round lesions in the spleen likely reflecting cysts or hemangiomas . Adrenals: No masses seen. Kidneys: Normal size, contour and axis. No radiodense stones or obstructive uropathy. No masses seen. Abdominal Aorta: Abdominal portion non-dilated. Bowel: No obstruction or bowel wall thickening. Appendix is unremarkable. Peritoneal Cavity: No ascites, collection or mesenteric inflammatory response. No free air. Lymph Nodes: Within normal limits. Bones: Within normal limits for the patient's age. There is L5 spondylolysis with minimal stable spo ndylolisthesis. Soft Tissues: There findings suggestive of a prior left inguinal hernia repair. PELVIS: Bladder: Symmetric distention, no gross wall thickening. Reproductive Organs: Unremarkable as visualized. Lymph Nodes: Within normal limits. Bones: Within normal limits for the patient's age. IMPRESSION: No acute abdominal or pelvic process. RADIATION DOSE DELIVERED: 487.78mGy.cm Total DLP DATA REPOSITORY: All CT scans at this facility are submitted to the National Radiology Data Registry (NRDR) Dose Index Registry (DIR) with the [employer] ([employer]). RADIATION OPTIMIZATION: All CT scans at this facility use at least one of these dose optimization te chniques: automated exposure control; mA and/or kV adjustment per patient size (includes targeted exa ms where dose is matched to clinical indication); or iterative reconstruction.
[2024-03-19] MEDS: Omnipaque 350 MG/ML 100 ML BTL IJ (22:16)
--- NOTE | 2024-03-19 23:36 | DI.VRAD_ITS ---
PROCEDURE INFORMATION: Exam: CT Abdomen And Pelvis With Contrast Exam date and time: 03/19/2024 10:21 PM Age: 44 years old Clinical indication: Condition or disease; Pancreatic condition; Pancreatitis; Prior surgery; Surgery date: Post-operative (0-2 days); Surgery type: Hernia TECHNIQUE: Imaging protocol: Computed tomography of the abdomen and pelvis with contrast. Contrast material: OMNIPAQUE; Contrast volume: 75 ml; Contrast route: INTRAVENOUS (IV); COMPARISON: CT RENAL COLIC WO 12/19/2020 11:17 PM FINDINGS: Liver: Normal. No mass. Gallbladder and biliary ducts: Normal. No calcified stones. No ductal dilation. Pancreas: Normal. No ductal dilation. Spleen: Normal. No splenomegaly. Adrenal glands: Normal. No mass. Kidneys and ureters: Normal. No hydronephrosis. Stomach and bowel: Unremarkable. No obstruction. No mucosal thickening. Appendix: No evidence of appendicitis. Intraperitoneal space: Unremarkable. No free air. No significant fluid collection. Vasculature: Unremarkable. No abdominal aortic aneurysm. Lymph nodes: Unremarkable. No enlarged lymph nodes. Urinary bladder: Unremarkable as visualized. Reproductive: Unremarkable as visualized. Bones/joints: Unremarkable. No acute fracture. Soft tissues: Unremarkable. IMPRESSION: No acute findings. Dictated and Authenticated by: Michelle Lester MD. Ordering:CHRISTOPH Mancilla MD
[2024-03-19 23:39] VITALS: BP 105/68; PULSE 62; RESP 18; TEMP 37.1; O2SAT 95
== END 2024-03-19 23:49 | disposition home or self-care (01) ==
PROVIDERS: Emergency Provider Student in an Organized Health Care Education/Training Program; PCP Family Medicine
DX: R10.13 Epigastric pain (principal); R19.7 Diarrhea, unspecified; Z87.891 Personal history of nicotine dependence
CPT/HCPCS: 80053; 83690; 99285; 74177; 81003; 83605; 83735; 85025; 99284; J3490

== ENCOUNTER 2024-07-11 13:44 | Emergency (ER) | payer OTHER, SELFPAY ==
[2024-07-11 13:47] VITALS: BP 139/76; PULSE 81; RESP 16; TEMP 36.8; O2SAT 98
--- NOTE | 2024-07-11 14:45 | DI.MRI_ITS ---
Exam(s) MR C SPINE T SPINE WO/W EXAM: MR C SPINE T SPINE WO/W CLINICAL HISTORY: severe neck pain after steroid injection TECHNIQUE: Multiplanar multisequence MRI was performed without intravenous contrast. 19 mL Dotarem IV COMPARISON: MR MR CERVICAL SPINE WO from 08/04/2023 FINDINGS: Exam is mildly limited by motion. BONES: Vertebral body heights are maintained. Intervertebral disc spaces are normal. Alignment is nor mal. Bone marrow signal intensity is within normal limits. No findings to suggest osteomyelitis in t he cervical or thoracic spine. Cord: Cord junction is unremarkableThe cervical cord is normal size and signal intensity. The thoracic cord is normal size and signal intensity. No intrinsic cord lesion is present. Discs: Cervical spine: No evidence of discitis. Stable degenerative changes in the cervical spine. There a re again noted to be prominent right-sided osteophytes at C3-4 causing severe neural foraminal narrow ing. Bilateral neural foraminal narrowing is seen at C6-7. Thoracic spine: No evidence of discitis. Small central disc protrusion at T8-9. Small endplate oste ophytes projecting anteriorly in the lower thoracic levels. SOFT TISSUES: No evidence soft tissue fluid collection or abscess in the cervical or thoracic region. IMPRESSION: Stable degenerative changes of the cervical spine at C3-4 and C6-7. Small central disc protrusion at T8-9. No evidence epidural or soft tissue abscess or abnormal fluid collection. No evidence of discitis or osteomyelitis. DATA REPOSITORY:
--- NOTE | 2024-07-11 14:47 | W.ED.GENAD ---
Discharge Plan Discharge Details Chief Complaint: Nk/Back Pain Primary Care Provider: Yang Bejarano ED Provider: Lou Wen Home Meds and New Rx's Prescriptions: No Action hydroxyzine HCl 25 mg tablet 25 mg PO TID PRN (Reason: itching) Qty: 60 0RF naloxone 4 mg/actuation spray,non-aerosol 4 mg intranasal Q2M PRN (Reason: opioid overdose) Qty: 2 0RF Rx Instructions: spray 1 dose into ONE nostril; alternate nostrils w each dose until help arrives buprenorphine-naloxone 2-0.5 mg tablet, sublingual 2 tab sublingual BID MDD 8 mg buprenorphine Qty: 112 2RF clonazepam 0.5 mg tablet 0.5 mg PO TID MDD 1.5 mg PRN (Reason: anxiety) Qty: 90 2RF gabapentin 300 mg capsule 300 mg PO TID Qty: 270 3RF ondansetron 4 mg tablet,disintegrating 4 mg PO Q8H PRN (Reason: nausea and vomiting) Qty: 90 0RF nystatin 100,000 unit/gram powder 1 applic topical TID Qty: 30 0RF metoprolol succinate 25 mg tablet extended release 24 hr 25 mg PO DAILY Qty: 90 3RF prednisone 50 mg tablet 50 mg PO DAILY 5 Days Qty: 5 0RF HPI General Date/Time Provider Initiated Documentation: 07/11/24 13:54. HPI Narrative: Edwar is a 44 year old male who presents to the emergency department today for evaluation of acute worsening of chronic neck pain with cervical radiculopathy to the left side. He reports he had an injection performed at [facility] two weeks ago, has had progressively worsening pain at the base of his neck with shooting pains into his L shoulder. Pain is worse when sitting and moving his head. Denies fever/chills, general malaise, vision changes, difficulty breathing, distal numbness/tingling, change in bowel or bladder control, saddle anesthesia/paresthesia. He has used prednisone with no improvement symptoms, also saw chiropractor yesterday which did not help. He says this is worse than pain has been before. Past medical history is significant for history of opioid dependence currently on Suboxone, no history of IV drug use. Denies history of immunocompromise. Ciarra is at bedside. Physical exam remarkable for uncomfortable patient. Mild erythema around base of neck, tender to palpation. Distal sensation intact, 5/5 strength to upper and lower extremities. Easy work of breathing, lung sounds clear bilaterally. Normal heart sounds. D/dx includes but is not limited to: Spondylodiscitis, abscess, reaction to steroid injection, acute worsening of chronic cervical radiculopathy. No red flags in history or physical exam at this time for cord compression I independently interpreted the following tests: CBC shows mild leukocytosis (11.49, possibly r/t recent steroid use); anemia unchanged from baseline. CRP and sed rate both unremarkable. BMP reassuring. While in the emergency department, Edwar received Tylenol and morphine for pain control. Lorazepam IV given for anxiolysis prior to MRI. I did discuss case with Ceci Murray APRN and pain clinic at [facility] who is familiar with patient's care. She is agreeable with plan of care; if no signs of infection, symptoms possibly related to increased pressure after injection, would recommend increasing 600 milligrams 3 times daily, as this may be more effective than opioids. Prednisone taper over 12 days (60-40-20-10 x 3 days each). Any concerns, recommends calling on-call chronic pain or Ortho/spinal on-call for further guidance. If infectious, ID should be consulted. Handoff report given to Shaquille DUARTE, evening JESUS, MRI pending. Related Data Home Medications ?Medication ?Instructions ?Recorded ?Confirmed hydroxyzine HCl 25 mg tablet 25 mg PO TID PRN itching #60 tabs 07/20/23 07/11/24 naloxone 4 mg/actuation nasal spray 4 mg intranasal Q2M PRN opioid 07/20/23 07/11/24 overdose #2 ea nystatin 100,000 unit/gram topical 1 applic topical TID #30 grams 02/28/24 07/11/24 powder metoprolol succinate 25 mg 25 mg PO DAILY #90 tabs 04/01/24 07/11/24 tablet,extended release 24 hr buprenorphine 2 mg-naloxone 0.5 mg 2 tab sublingual BID #112 tabs 06/28/24 07/11/24 sublingual tablet clonazepam 0.5 mg tablet 0.5 mg PO TID PRN anxiety #90 tabs 06/28/24 07/11/24 gabapentin 300 mg capsule 300 mg PO TID #270 caps 06/28/24 07/11/24 ondansetron 4 mg disintegrating 4 mg PO Q8H PRN nausea and 06/28/24 07/11/24 tablet vomiting #90 tabs prednisone 50 mg tablet 50 mg PO DAILY 5 days #5 tabs 07/09/24 07/11/24 Previous Rx's ?Medication ?Instructions ?Recorded hydroxyzine HCl 25 mg tablet 25 mg PO TID PRN itching #60 tabs 07/20/23 naloxone 4 mg/actuation nasal spray 4 mg intranasal Q2M PRN opioid 07/20/23 overdose #2 ea nystatin 100,000 unit/gram topical 1 applic topical TID #30 grams 02/28/24 powder metoprolol succinate 25 mg 25 mg PO DAILY #90 tabs 04/01/24 tablet,extended release 24 hr buprenorphine 2 mg-naloxone 0.5 mg 2 tab sublingual BID #112 tabs 06/28/24 sublingual tablet clonazepam 0.5 mg tablet 0.5 mg PO TID PRN anxiety #90 tabs 06/28/24 gabapentin 300 mg capsule 300 mg PO TID #270 caps 06/28/24 ondansetron 4 mg disintegrating 4 mg PO Q8H PRN nausea and 06/28/24 tablet vomiting #90 tabs prednisone 50 mg tablet 50 mg PO DAILY 5 days #5 tabs 07/09/24 Allergies Allergy/AdvReac Type Severity Reaction Status Date / Time No Known Allergies Allergy Verified 07/11/24 13:53 General Stated Complaint: Nk/Back Pain ANGELINA: 4 Review of Systems Narrative: see HPI Exam Const General: cooperative, anxious and other (appears uncomfortable) Nutritional Appearance: average body habitus Orientation: alert and oriented x3 Neck Neck: full ROM, no lymphadenopathy, no meningeal signs and other (mild erythema to base of neck with warmth) Lymphatic: no lymphadenopathy noted Resp Effort & Inspection: normal respiratory effort and able to speak in complete sentences Auscultation: clear to auscultation bilaterally Cardio Rate: regular rate Rhythm: regular rhythm Back/Spine/Pelvis Cervical Spine: normal cervical lordosis, pain with cervical ROM and cervical spinal tenderness (C7/T1) Thoracic/Lumbar Spine: thoracic and lumbar spine normal to inspection Skin General skin exam: erythema (mild, base of neck) Trauma: no lacerations or abrasions Neuro General: patient alert, patient oriented x3, gait normal, tone normal and moves all extremities Cranial Nerves: CN's II-XI intact bilaterally, PERRL, EOM intact bilaterally, no nystagmus and facial strength normal Cognition: normal cognition Speech: speech normal Motor: muscle tone normal throughout and strength 5/5 throughout Sensory Exam: no sensory deficits noted Extrem General: normal to inspection Right upper extremity: normal to inspection and normal capillary refill Left upper extremity: normal to inspection and normal capillary refill Course Vital Signs Vital signs: Vital Signs Temperature 36.8 C 07/11/24 13:47 Pulse 81 07/11/24 13:47 Respiratory Rate 16 07/11/24 13:47 Blood Pressure 139/76 07/11/24 13:47 Pulse Oximetry 98 07/11/24 13:47 Temperature 36.8 C 07/11/24 13:47 Pulse 81 07/11/24 13:47 Respiratory Rate 16 07/11/24 13:47 Blood Pressure 139/76 07/11/24 13:47 Pulse Oximetry 98 07/11/24 13:47 Pain Level 10 07/11/24 13:47 Medical Decision Making Quality:SDOH Health Related Social Needs: Health related social needs problems related to housing/economic circumstances (Z59.89), feeling lonely/isolated (Z60.8) PFSH All Active Problems (Updated 04/19/24 @ 00:02 by TAYLER XIAO) Left cervical radiculopathy (Chronic 10/13/23) Managed by [facility]; first epidural steroid injection given 01/17/2024 (Ceci Murray APRN @ [facility]) Foraminal stenosis of cervical region (Acute) Panic attacks (Acute) Low back pain (Acute) Chronic diarrhea (Acute) Pancreatitis (Chronic) [facility] 06/14/23 - 06/17/23 Hypophosphatasia (Acute) [facility] 06/14/23 - 06/17/23 Left arm weakness (Acute) Cervical radicular pain (Acute) Cyclic vomiting syndrome (Acute) Diarrhea (Acute) Hiatal hernia (Chronic) Acute UTI (Acute) SVT (supraventricular tachycardia) (Chronic) Inguinal hernia (Acute) 01/18/19 [facility] General Surgery for Evaluation of R Inguinal Hernia and future plan for laparoscopic repair. 03/25/2019 pre-anesthesia appoint at [facility] Anxiety (Chronic) Diverticulosis (Acute) Uncomplicated opioid dependence (Chronic 06/01/17) Medical History (Updated 04/19/24 @ 00:02 by TAYLER XIAO) Encounter for diagnostic endoscopy (11/27/23) upper EUS [facility]-hx pancreatitis sm cystic lesion in pancreatic tail Incarcerated right inguinal hernia Surgical History (Updated 04/22/24 @ 15:45 by Christelle Villavicencio RN) History of colonoscopy (04/2023) History of esophagogastroduodenoscopy (EGD) (~05/04/21) 04/2023-[facility] -Mild,non-specific inflammation in mid-esophagus and stomach S/P right inguinal hernia repair (04/08/19) lap initial rgt hernia, direct and indirectw/ modifier mes, BARD Family History Mother No problems noted. Father Diabetes Heart disease Social History Smoking/Tobacco Use Status: Former Tobacco Use Quit Date: 03/13/14 Tobacco: How many years used: 15 Second Hand Exposure: No Smoking risk assessment performed?: Yes Alcohol Intake: never Drug use: Occasionally Substance use type: former substance user and opiates Details: sometimes' smokes/vapes marijuana. Household members: children Housing: house Number of Children: 2 Communication Needs: None current occupation: works [employer] Current gender identity: male What type of physical activity do you participate in: none Seatbelt use: always Drive intox or ride w/intox peg driver: No Working smoke detector in home: Yes Fire extinguisher in home: Yes Carbon monox detector in home: Yes Do you feel safe at home: Yes Do you feel safe in your relationship?: Yes
[2024-07-11 15:37] LABS: Abs Immature Grans 0.04 10^3/uL (0.0-0.06); Absolute Basophil Count 0.03 10^3/uL (0.0-0.2); Absolute Monocyte Count 0.79 10^3/uL (0.1-0.8); Basophils % 0.3 %; HCT 32.5 % (40.0-50.0); HGB 10.8 g/dL (13.5-17.5); Immature Grans % 0.3 %; Lymphocytes % 15.8 %; MCH 29.6 pg (27.0-33.0); MCHC 33.2 % (32.0-36.0); MCV 89 fL (80-95); MPV 9.4 fL (8.0-11.0); Monocytes % 6.9 %; Neutrophils % 76.7 %; Platelet Count 343 10^3/uL (130-400); RBC 3.65 10^6/uL (4.36-5.78); RDW-SD 42.5 fL; WBC 11.49 10^3/uL (4.4-10.8)
[2024-07-11 15:39] LABS: Absolute Lymphocyte Count 1.82 10^3/uL (1.2-3.4); Absolute Neutrophil Count 8.81 10^3/uL (1.2-6.7); ESR 8 mm/hr (0-15)
[2024-07-11 15:48] LABS: Anion Gap 12.4 mmol/L (3-11); BUN 28 mg/dL (7-18); CO2 25.6 mmol/L (21.0-32.0); Calcium 9.4 mg/dL (8.5-10.1); Chloride 107 mmol/L (98-107); Estimated GFR 95.18 (mL/min/1.73m2); Glucose 112 mg/dL (74-106); Potassium 3.5 mmol/L (3.5-5.1); Sodium 145 mmol/L (136-145)
[2024-07-11 15:49] LABS: C-Reactive Protein < 0.50 mg/dL (<or=0.5)
[2024-07-11] MEDS: MORPHine IR 15 MG TAB PO (15:49)
[2024-07-11] MEDS: Acetaminophen 325 MG TAB 650 MG PO (15:50)
[2024-07-11] MEDS: Dexamethasone 10 MG/ML VIAL IVP (15:50)
[2024-07-11] MEDS: LORazepam 2 MG/ML VIAL 0.5 MG IVP (16:00)
[2024-07-11] MEDS: Gadoterate meglumine 20 ML SYRINGE 19 ML IVP (16:43)
[2024-07-11] MEDS: Normal Saline Flush 10 ML SYR IVP (16:44)
== END 2024-07-11 18:28 | disposition home or self-care (01) ==
PROVIDERS: Nurse Practitioner Family; Emergency Provider Physician Assistant; PCP Family Medicine
DX: M54.16 Radiculopathy, lumbar region (principal); Z87.891 Personal history of nicotine dependence
CPT/HCPCS: 36415; 80048; 85652; 87040; 96374; 96375; 99284; 72156; 72157; 85025; 86140; J1100; J2060

== ENCOUNTER 2024-08-14 08:46 | Outpatient (CLI) | payer OTHER, SELFPAY ==
--- NOTE | 2024-08-14 08:45 | RT.EKG_ITS ---
APPROVED REPORT Exam: Resting ECG Reason for Exam: Pre-Op Exam Patient Location: O HR:61 bpm ECG Measurements Heart Rate 61 AXIS ID 152 P 44 QRSd 102 QRS -3 QT 403 T 12 QTc 406 Conclusion Sinus rhythm...normal P axis, V-rate 50- 99 Probable left atrial enlargement...P >50mS, <-0.10mV V1 Otherwise normal ECG
== END 2024-08-14 08:47 | disposition home or self-care (01) ==
LOC: DI.KIM 08:47
PROVIDERS: PCP Family Medicine; Visit Provider Family Medicine
DX: Z01.818 Encounter for other preprocedural examination (principal); I51.7 Cardiomegaly
CPT/HCPCS: 93010

== ENCOUNTER 2024-11-25 12:29 | Emergency (ER) | payer OTHER, SELFPAY ==
[2024-11-25 12:31] VITALS: BP 130/89; PULSE 77; RESP 18; TEMP 36.6; O2SAT 98
[2024-11-25] MEDS: Lactated Ringers 1,000 ML 1000 ML IV (13:26)
[2024-11-25] MEDS: Pantoprazole 40 MG VIAL IVP (13:32)
[2024-11-25 13:36] LABS: Abs Immature Grans 0.02 10^3/uL (0.0-0.06); HCT 34.1 % (40.0-50.0); HGB 11.0 g/dL (13.5-17.5); Immature Grans % 0.3 %; MCH 29.6 pg (27.0-33.0); MCHC 32.3 % (32.0-36.0); MCV 92 fL (80-95); MPV 8.9 fL (8.0-11.0); Platelet Count 335 10^3/uL (130-400); RBC 3.72 10^6/uL (4.36-5.78); RDW 12.6 % (11.8-14.1); RDW-SD 42.0 fL; WBC 6.52 10^3/uL (4.4-10.8)
[2024-11-25] MEDS: Sucralfate 1 GM TAB PO (13:36)
[2024-11-25] MEDS: Ondansetron 4 MG/2 ML VIAL IVP ×2 (13:37→15:51)
[2024-11-25] MEDS: Ketorolac 15 MG/ML VIAL IVP (13:38)
[2024-11-25] MEDS: ACETAMINOPHEN 1,000 MG/100 ML BAG 400 MG IVPB (13:43)
[2024-11-25 13:46] VITALS: TEMP 36.3
[2024-11-25 13:57] LABS: ALT 22 U/L (16-63); AST 18 U/L (15-37); Albumin 4.1 g/dL (3.4-5.0); Alkaline Phosphatase 63 U/L (46-116); Anion Gap 7.0 mmol/L (3-11); BUN 23 mg/dL (7-18); Bilirubin, Total 0.4 mg/dL (0.2-1.0); CO2 29.0 mmol/L (21.0-32.0); Calcium 9.3 mg/dL (8.5-10.1); Chloride 104 mmol/L (98-107); Estimated GFR 108.01 (mL/min/1.73m2); Glucose 120 mg/dL (74-106); Lipase 47 U/L (<78); Potassium 3.9 mmol/L (3.5-5.1); Sodium 140 mmol/L (136-145); Total Protein 7.8 g/dL (6.4-8.2)
[2024-11-25] MEDS: Omnipaque 350 MG/ML 500 ML BTL-Imaging package IJ (14:24)
[2024-11-25] MEDS: Normal Saline Flush 10 ML SYR IVP (14:26)
[2024-11-25] MEDS: Normal Saline - Diluent 50 ML VIAL IJ (14:26)
--- NOTE | 2024-11-25 14:30 | DI.CT_ITS ---
Exam(s) CT ABDOMEN PELVIS W EXAM: CT ABDOMEN PELVIS W CLINICAL HISTORY: LLQ pain, vomiting, eval for tics TECHNIQUE: Imaging Protocol: Axial computed tomography images with coronal and sagittal reformatted images were created and reviewed. CONTRAST MATERIAL: Intravenous: Omnipaque 350 Contrast volume:75 mL Oral: No COMPARISON: CT CT CHEST/ABD/PEL W from 09/03/[address] ABDOMEN PELVIS W from 12/03/[address] RENAL COLIC WO from 12/19/[address] ABDOMEN PELVIS W from 03/19/2024 FINDINGS: ABDOMEN: Lung Bases: There is a small to moderate size hiatal hernia. Liver: Normal density. No measurable mass. Portal, Superior Mesenteric, and Splenic Veins: Unremarkable. Gallbladder and Biliary Tract: No radiodense calculus or dilation. Pancreas: Normal density, no abnormal calcifications or inflammatory process. Spleen: There are stable hypodensities in the spleen. These likely reflect small cysts or hemangioma. Adrenals: No masses seen. Kidneys: Normal size, contour and axis. No radiodense stones or obstructive uropathy. No masses seen. Abdominal Aorta: Abdominal portion non-dilated. Bowel: There is diverticulosis in the colon, but no evidence of acute diverticulitis. There is no evidence of bowel obstruction or bowel wall thickening. Appendix is unremarkable. Peritoneal Cavity: No ascites, collection or mesenteric inflammatory response. No free air.There are findings of a prior left inguinal hernia repair. Lymph Nodes: Within normal limits. Bones: Within normal limits for the patient's age. There is L5 spondylolysis but no evidence of spondylolisthesis. Soft Tissues: Unremarkable. PELVIS: Bladder: Symmetric distention, no gross wall thickening. Reproductive Organs: Unremarkable as visualized. Lymph Nodes: Within normal limits. Bones: Within normal limits for the patient's age. IMPRESSION: 1. No acute abdominal or pelvic process. 2. Colonic diverticulosis is present but there is no evidence of acute diverticulitis. RADIATION DOSE DELIVERED: 445.58mGy.cm Total DLP DATA REPOSITORY: All CT scans at this facility are submitted to the National Radiology Data Registry (NRDR) Dose Index Registry (DIR) with the [employer] (ACR). RADIATION OPTIMIZATION: All CT scans at this facility use at least one of these dose optimization techniques: automated exposure control; mA and/or kV adjustment per patient size (includes targeted exams where dose is matched to clinical indication); or iterative reconstruction.
[2024-11-25 14:35] LABS: Glucose Negative (Negative)
--- NOTE | 2024-11-25 14:46 | ED.GENADUL_ITS ---
Discharge Plan Disposition Patient Disposition: Home Condition: Good Discharge Details Clinical Impression: Nausea & vomiting, Dehydration Primary Care Provider: Yang Bejarano ED Provider: Ceasar Mcgrath Home Meds and New Rx's Prescriptions: New famotidine 40 mg tablet 40 mg PO DAILY 60 Days Qty: 60 0RF dicyclomine 10 mg capsule 10 mg PO BID Qty: 8 0RF No Action hydroxyzine HCl 25 mg tablet 25 mg PO TID PRN (Reason: itching) Qty: 60 0RF naloxone 4 mg/actuation spray,non-aerosol 4 mg intranasal Q2M PRN (Reason: opioid overdose) Qty: 2 0RF Rx Instructions: spray 1 dose into ONE nostril; alternate nostrils w each dose until help arrives ondansetron 4 mg tablet,disintegrating 4 mg PO Q8H PRN (Reason: nausea and vomiting) Qty: 90 0RF buprenorphine-naloxone 2-0.5 mg tablet, sublingual 2 tab sublingual BID MDD 8 mg buprenorphine Qty: 112 2RF clonazepam 0.5 mg tablet 0.5 mg PO TID MDD 1.5 mg PRN (Reason: anxiety) Qty: 90 2RF metoprolol succinate 25 mg tablet extended release 24 hr 25 mg PO DAILY Qty: 90 3RF gabapentin 300 mg capsule 600 mg PO TID Qty: 270 3RF Rx Instructions: 07/16/2024: Increase per ER provider. TM aware of increase. Discharge Instructions Instructions: Nausea and Vomiting, Adult ED Additional Instructions: At this time your workup is returned reassuring. Your blood work is stable, and your CT scan shows no evidence of significant abnormality. You were dehydrated but you have since been rehydrated. There is no evidence of pancreatitis or urinary infection. No signs of diverticulitis. Please stick with a mild and bland diet for the next 1 to 2 weeks. Take the famotidine as prescribed to help with the acid secretion in your stomach. Please take the dicyclomine/Bentyl as needed for spasms and cramping. Please take your Zofran as needed for nausea. If you notice any worsening of your symptoms, or any new symptoms such as vomiting, diarrhea, fever, chills, shortness of breath, chest pain, numbness, weakness, or fainting , please return immediately to the emergency department for reevaluation. Please follow up with your primary care provider as soon as possible for reassessment and reevaluation. As always, it was a pleasure participating in your medical care today. Referrals: Yang Bejarano DO [Primary Care Provider, Medicine] [facility] General Date/Time Provider Initiated Documentation: 11/25/24 12:41 . HPI Narrative: 44-year-old male with a past medical history of cyclic vomiting syndrome in the past,'s SVT on metoprolol, bilateral inguinal hernias that been surgically repaired, previous diverticulosis without diverticulitis, pancreatitis, recent cervical spine surgery, who presents today for evaluation of abdominal pain, nausea and vomiting. Patient states that he has been going through a significant amount of stress over the last couple of days, and then over the last 3 days he has had nausea vomiting and diarrhea, no blood in his vomit or stool. He had multiple episodes of vomiting today. He has been taking a notable amount of Tylenol and Motrin for the postoperative neck achiness. He denies any other changes in his medications otherwise. He denies any other sick contacts, fever or chills. No other complaints at this time. Pain is diffuse and achy in nature. He denies any focal discomfort. He denies any specific aggravating or relieving factors. Related Data Home Medications ?Medication ?Instructions ?Recorded ?Confirmed hydroxyzine HCl 25 mg tablet 25 mg PO TID PRN itching #60 tabs 07/20/23 11/25/24 Held on 11/25/24. Instructions: Pt Stopped/Never Started naloxone 4 mg/actuation nasal spray 4 mg intranasal Q2 M PRN opioid 07/20/23 11/25/24 overdose #2 ea metoprolol succinate 25 mg 25 mg PO DAILY #90 tabs 11/25/24 tablet,extended release 24 hr ondansetron 4 mg disintegrating 4 mg PO Q8H PRN nausea and 06/28/24 11/25/24 tablet vomiting #90 tabs gabapentin 300 mg capsule 600 mg (2 x 300 mg) PO TID # 270 07/16/24 11/25/24 caps buprenorphine 2 mg-naloxone 0.5 mg 2 tab sublingual BI D #112 tabs 09/20/24 11/25/24 sublingual tablet clonazepam 0.5 mg tablet 0.5 mg PO TID PRN anxiety #9 0 tabs 09/20/24 11/25/24 dicyclomine 10 mg capsule 10 mg PO BID #8 caps 5 famotidine 40 mg tablet 40 mg PO DAILY 60 days #60 t abs 11/25/24 Previous Rx's ?Medication ?Instructions ?Recorded hydroxyzine HCl 25 mg tablet 25 mg PO TID PRN itching #60 tabs 07/20/23 Held on 11/25/24. Instructions: Pt Stopped/Never Started naloxone 4 mg/actuation nasal spray 4 mg intranasal Q2 M PRN opioid 07/20/23 overdose #2 ea metoprolol succinate 25 mg 25 mg PO DAILY #90 tabs tablet,extended release 24 hr ondansetron 4 mg disintegrating 4 mg PO Q8H PRN nausea and 06/28/24 tablet vomiting #90 tabs gabapentin 300 mg capsule 600 mg (2 x 300 mg) PO TID # 270 07/16/24 caps buprenorphine 2 mg-naloxone 0.5 mg 2 tab sublingual BI D #112 tabs 09/20/24 sublingual tablet clonazepam 0.5 mg tablet 0.5 mg PO TID PRN anxiety #9 0 tabs 09/20/24 dicyclomine 10 mg capsule 10 mg PO BID #8 caps 5 famotidine 40 mg tablet 40 mg PO DAILY 60 days #60 t abs 11/25/24 Allergies Allergy/AdvReac Type Severity Reaction Status Date / Time No Known Allergies Allergy Verified 11/25/24 12:35 General Stated Complaint: Nausea/Vomit/Diar ANGELINA: 3 Exam Narrative Exam Narrative: 1.Const: Well-nourished, Well-developed, appearing stated age 2.Eyes: PERRL, no conjunctival injection, and symmetrical lids. 3.ENT: Atraumatic external nose and ears. Moist MM. Neck: Symmetric, trachea midline, No thyromegaly. 4.CVS: +S1/S2, Peripheral pulses 2+ and equal in all extremities. Brisk capillary refill in all extremities. 5.RESP: Unlabored respiratory effort. Clear to auscultation bilaterally. No wheezes rales or rhonchi 6.GI: Soft, nondistended, no guarding or rebound. No focal tenderness, but mild achiness throughout. Achiness is certainly worse in the left lower quadrant on palpation. 7.MSK: Normocephalic/Atraumatic, Extremities w/o deformity or ttp No cyanosis or clubbing, Normal movement of all extremities 8.Skin: Warm, Dry. No rashes or lesions. 9.Neuro: compliance field technician II-XII grossly intact. Sensation grossly intact, no focal neurologic deficits. 10.Psych: (AAO) x3. Appropriate mood and affect Course Vital Signs Vital signs: Vital Signs Temperature 36.6 C 11/25/24 12:31 Pulse 77 11/25/24 12:31 Respiratory Rate 18 11/25/24 12:31 Blood Pressure 130/89 11/25/24 12:31 Pulse Oximetry 98 11/25/24 12:31 Temperature 36.3 C L 11/25/24 13:46 Temperature Source Oral 11/25/24 13:46 Pulse 77 11/25/24 12:31 Respiratory Rate 18 11/25/24 12:31 Blood Pressure 130/89 11/25/24 12:31 Pulse Oximetry 98 11/25/24 12:31 Oxygen Delivery Method Room Air 11/25/24 13:46 Oxygen Flow Rate 0 11/25/24 12:31 Pain Level 3 11/25/24 13:46 Lab/Test Results Lab/Test Results: Laboratory Tests Range/Units 11/25/24 11/25/24 13:25 14:28 WBC (4.4-10.8) 10^3/uL 6.52 RBC (4.36-5.78) 10^6/uL 3.72 L Hgb (13.5-17.5) g/dL 11.0 L Hct (40.0-50.0) % 34.1 L MCV (80-95) fL 92 MCH (27.0-33.0) pg 29.6 MCHC (32.0-36.0) % 32.3 RDW (11.8-14.1) % 12.6 Plt Count (130-400) 10^3/uL 335 MPV (8.0-11.0) fL 8.9 Immature Gran % % 0.3 Neutrophils % % 70.9 Lymphocytes % % 21.6 Monocytes % % 6.3 Eosinophils % % 0.3 Basophils % % 0.6 Nucleated RBC % (0.0-0.3) % 0.0 Absolute Neutrophils (1.2-6.7) 10^3/uL 4.62 Absolute Lymphocytes (1.2-3.4) 10^3/uL 1.41 Absolute Monocytes (0.1-0.8) 10^3/uL 0.41 Absolute Eosinophils (0.0-0.7) 10^3/uL 0.02 Absolute Basophils (0.0-0.2) 10^3/uL 0.04 Sodium (136-145) mmol/L 140 Potassium (3.5-5.1) mmol/L 3.9 Chloride (98-107) mmol/L 104 Carbon Dioxide (21.0-32.0) mmol/L 29.0 Anion Gap (3-11) mmol/L 7.0 BUN (7-18) mg/dL 23 H Creatinine (0.70-1.30) mg/dL 0.9 Est GFR (CKD-EPI 2020) (mL/min/1.73m2) 108.01 Glucose (74-106) mg/dL 120 H Calcium (8.5-10.1) mg/dL 9.3 Total Bilirubin (0.2-1.0) mg/dL 0.4 AST (15-37) U/L 18 ALT (16-63) U/L 22 Alkaline Phosphatase (46-116) U/L 63 Total Protein (6.4-8.2) g/dL 7.8 Albumin (3.4-5.0) g/dL 4.1 Lipase (<78) U/L 47 Urine Color (Yellow) Yellow Urine Clarity (Clear) Clear Urine pH (5-8) 6.0 Ur Specific [place] (1.005-1.025) <= 1.005 Urine Protein (Neg-Trace) mg/dL Negative Urine Ketones (Negative) mg/dL Negative Urine Blood (Negative) Negative Urine Nitrite (Negative) Negative Urine Bilirubin (Negative) Negative Urine Urobilinogen (Up to 0.2) mg/dL 0.2 Ur Leukocyte Esterase (Negative) Negative Urine Glucose (Negative) mg/dL Negative Medical Decision Making 44-year-old male with a past medical history of cyclic vomiting syndrome in the past,'s SVT on metoprolol, bilateral inguinal hernias that been surgically repaired, previous diverticulosis without diverticulitis, pancreatitis, recent cervical spine surgery, who presents today for evaluation of abdominal pain, nausea and vomiting. Patient states that he has been going through a significant amount of stress over the last couple of days, and then over the last 3 days he has had nausea vomiting and diarrhea, no blood in his vomit or stool. He had multiple episodes of vomiting today. He has been taking a notable amount of Tylenol and Motrin for the postoperative neck achiness. He denies any other changes in his medications otherwise. He denies any other sick contacts, fever or chills. No other complaints at this time. Pain is diffuse and achy in nature. He denies any focal discomfort. He denies any specific aggravating or relieving factors. Physical exam demonstrates well-appearing male, slightly dry mucous membranes, mild achiness throughout on palpation of the abdomen but no evidence of an acute surgical abdomen. Patient has mild tenderness in the left lower quadrant on palpation, no evidence of inguinal hernia or other abnormality. No testicular or scrotal tenderness. Differential is highest for diverticulitis, colitis, gastroenteritis. Will get CT imaging, rehydrate give antiemetics, monitor closely and reassess. 3:29 PM On reassessment the patient is feeling much better. No more vomiting. Abd ominal pain has resolved. He still does have mild nausea. Repeat assessment shows no signs of an acute surgical abdomen. CT scan shows evidence of no acute process, diverticulitis, or other abnormality. He does have some chronic diverticulosis. Laboratory workup has returned and shows evidence to reflect dehydration, but no evidence of UTI. Lipase normal, no white count or bandemia. No other abnormality. Symptoms appear inconsistent with cholecystitis, appendicitis, or other life-threatening surgical emergency. No evidence to suggest small bowel obstruction, ulcerative colitis or Crohn's. No evidence to suggest mesenteric ischemia. Suspect potential gastroenteritis, dehydration. We will start the patient on famotidine outpatient in conjunction with his home omeprazole. We will give Bentyl for home use as well. He has Zofran already at home, and will recommend continuation of this. Patient will follow-up outpatient with his consumer insights specialist. Discussed red flags for which to return. I have extensively reviewed the treatment plan and discharge instructions with the patient. I have addressed all patient concerns at this time. The patient was made aware of what symptoms to monitor for that would warrant a return to the emergency department. Discussed the plan with the patient, they demonstrate verbal understanding and agreement with our assessment and plan at this time. The documentation in this chart was dictated using Rattle dictation software. Please excuse any dictation errors. FINDINGS: ABDOMEN: Lung Bases: There is a small to moderate size hiatal hernia. Liver: Normal density. No measurable mass. Portal, Superior Mesenteric, and Splenic Veins: Unremarkable. Gallbladder and Biliary Tract: No radiodense calculus or dilation. Pancreas: Normal density, no abnormal calcifications or inflammatory process. Spleen: There are stable hypodensities in the spleen. These likely reflect small cysts or hemangioma. Adrenals: No masses seen. Kidneys: Normal size, contour and axis. No radiodense stones or obstructive uropathy. No masses seen. Abdominal Aorta: Abdominal portion non-dilated. Bowel: There is diverticulosis in the colon, but no evidence of acute diverticulitis. There is no evidence of bowel obstruction or bowel wall thickening. Appendix is unremarkable. Peritoneal Cavity: No ascites, collection or mesenteric inflammatory response. No free air.There are findings of a prior left inguinal hernia repair. Lymph Nodes: Within normal limits. Bones: Within normal limits for the patient's age. There is L5 spondylolysis bu t no evidence of spondylolisthesis. Soft Tissues: Unremarkable. PELVIS: Bladder: Symmetric distention, no gross wall thickening. Reproductive Organs: Unremarkable as visualized. Lymph Nodes: Within normal limits. Bones: Within normal limits for the patient's age. IMPRESSION: 1. No acute abdominal or pelvic process. 2. Colonic diverticulosis is present but there is no evidence of acute diverticulitis. Quality:SDOH Health Related Social Needs: Health related social needs house/econ circumstance lo elliot/isolated [facility] All Active Problems (Updated 11/25/24 @ 15:30 by Ceasar Mcgrath DO) Dehydration (Acute) Nausea & vomiting (Acute) Encounter for preoperative assessment (Acute) Cervicalgia (Acute) Left 07/12/24 [facility] with [facility] Left cervical radiculopathy (Chronic 10/13/23) [place] [facility] [place] [facility]; first epidural steroid injection given 01/17/2024 (Ceci Murray APRN [place] [facility] [place]/15/24 f/u [facility] -surgery planned. Foraminal stenosis of cervical region (Acute) Panic attacks (Acute) Low back pain (Acute) Chronic diarrhea (Acute) Pancreatitis (Chronic) [facility] [place] Hypophosphatasia (Acute) [facility] [place]17[place] Left arm weakness (Acute) Cervical radicular pain (Acute) Cyclic vomiting syndrome (Acute) Diarrhea (Acute) Hiatal hernia (Chronic) Acute UTI (Acute) SVT (supraventricular tachycardia) (Chronic) Inguinal hernia (Acute) 01/18/19 [facility] [place] for Evaluation of R Inguinal Hernia and future plan for laparoscopic repair. 03/25/2019 pre[place]est[place] [facility] [place] Anxiety (Chronic) Diverticulosis (Acute) Uncomplicated opioid dependence (Chronic 06/01/17) Medical History (Updated 11/25/24 @ 15:30 by Ceasar Mcgrath DO) Encounter for diagnostic endoscopy (11/27/23) upper [place] [facility] [place] sm cystic lesion in pancreatic tail Incarcerated right inguinal hernia Surgical History (Updated 09/17/24 @ 13:52 by Dacia Loja RN) S/P cervical spinal fusion (~08/21/24) [place]2024 [place] [facility] [place] Shaw Dow. C6-C7 History of colonoscopy (04/2023) History of esophagogastroduodenoscopy (EGD) (~05/04/21) 04[place]2023[place] [place]Mild,non-specific inflammation in mid-esophagus and stomach S/P right inguinal hernia repair (04/08/19) lap initial rgt hernia, direct and indirectw/ modifier mes, BARD Family History Mother No problems noted. Father Diabetes Heart disease Social History (Updated 08/14/24 @ 09:01 by Sarah Denney LPN) Smoking/Tobacco Use Status: Former Tobacco Use Quit Date: 03/13/14 Tobacco: How many years used: 15 Second Hand Exposure: No Smoking risk assessment performed?: Yes Alcohol Intake: never Drug use: Occasionally Substance use type: former substance user and opiates Details: sometimes' smokes/vapes marijuana. 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
[2024-11-25 15:02] VITALS: BP 108/65; PULSE 74
[2024-11-25 15:53] VITALS: BP 119/80; PULSE 62; RESP 16; TEMP 36.7; O2SAT 100
[2024-11-25] MEDS: Dicyclomine 10 MG CAP 20 MG PO (16:11)
== END 2024-11-25 16:13 | disposition home or self-care (01) ==
PROVIDERS: Emergency Provider Student in an Organized Health Care Education/Training Program; PCP Family Medicine
DX: R11.2 Nausea with vomiting, unspecified (principal); E86.0 Dehydration; Z87.891 Personal history of nicotine dependence
CPT/HCPCS: 80053; 83690; 96365; 96375; 96376; 99285; 74177; 81003; 85025; J0131; J1885; J2405; J2470

== ENCOUNTER 2024-11-26 21:50 | Emergency (ER) | payer OTHER, SELFPAY ==
[2024-11-26] VITALS (23 sets, daily range): BP systolic 103–143; BP diastolic 64–103; PULSE 53–83; RESP 20; TEMP 37; O2SAT 94–100
--- NOTE | 2024-11-26 22:02 | ED.GENADUL_ITS ---
Discharge Plan Disposition Patient Disposition: Home Condition: Good Discharge Details Clinical Impression: Anxiety hyperventilation, Hypokalemia Primary Care Provider: Yang Bejarano ED Provider: Yung Medina [place] Meds and New Rx's Prescriptions: Continued hydroxyzine HCl 25 mg tablet 25 mg PO TID PRN (Reason: itching) Qty: 60 0RF naloxone 4 mg/actuation spray,non-aerosol 4 mg intranasal Q2M PRN (Reason: opioid overdose) Qty: 2 0RF Rx Instructions: spray 1 dose into ONE nostril; alternate nostrils w each dose until help arrives ondansetron 4 mg tablet,disintegrating 4 mg PO Q8H PRN (Reason: nausea and vomiting) Qty: 90 0RF buprenorphine-naloxone 2-0.5 mg tablet, sublingual 2 tab sublingual BID MDD 8 mg buprenorphine Qty: 112 2RF clonazepam 0.5 mg tablet 0.5 mg PO TID MDD 1.5 mg PRN (Reason: anxiety) Qty: 90 2RF metoprolol succinate 25 mg tablet extended release 24 hr 25 mg PO DAILY Qty: 90 3RF gabapentin 300 mg capsule 600 mg PO TID Qty: 270 3RF Rx Instructions: 07/16/2024: Increase per ER provider. TM aware of increase. famotidine 40 mg tablet 40 mg PO DAILY 60 Days Qty: 60 0RF dicyclomine 10 mg capsule 10 mg PO BID Qty: 8 0RF Discharge Instructions Additional Instructions: You are seen in the ED for episodes of lightheadedness, general body tingling and shortness of breath. Your exam, EKG, chest x-ray, laboratory studies are reassuring. Your potassium was a little low and this was replaced orally. Likely symptoms related to anxiety and hyperventilation. You improved on your own without intervention by us. Please follow-up with primary care. Return to ED for any acute neurologic change, chest pain, syncope, persistent shortness of breath, other concerns. Referrals: Yang Bejarano DO [Primary Care Provider, Medicine] HPI General Mode of arrival: ambulatory . Date/Time Provider Initiated Documentation: 11/26/24 22:02 . Limitations to Documentation: no limitations . Information obtained by: patient, RN notes reviewed and old records reviewed . HPI Narrative: Patient presents to ED with complaint of not feeling right, episodes of lightheadedness, numbness and tingling involving all 4 extremities and face. Symptoms began this evening. Yesterday he was seen in the emergency department for vomiting and abdominal pain with an unremarkable workup. Has been using ondansetron, famotidine and dicyclomine which she was prescribed at discharge. Has not had any vomiting or abdominal pain today. Was actually able to eat something for dinner tonight. Does have a history of anxiety and panic attacks but typically if he takes a hot shower he feels much better. This did not help tonight. He also took acetaminophen and diphenhydramine. He has not actually had a loss of consciousness. He denies any episodes of vertigo, disequilibrium. Denies any chest pain. Feels short of breath when he experiences lightheadedness and numbness and tingling. Just feels that he is off and is concerned there is something wrong though he also acknowledges it may be just anxiety. Related Data Home Medications ?Medication ?Instructions ?Recorded ?Confirmed hydroxyzine HCl 25 mg tablet 25 mg PO TID PRN itching #60 tabs 07/20/23 11/26/24 naloxone 4 mg/actuation nasal spray 4 mg intranasal Q2 M PRN opioid 07/20/23 11/26/24 overdose #2 ea metoprolol succinate 25 mg 25 mg PO DAILY #90 tabs 11/26/24 tablet,extended release 24 hr ondansetron 4 mg disintegrating 4 mg PO Q8H PRN nausea and 06/28/24 11/26/24 tablet vomiting #90 tabs gabapentin 300 mg capsule 600 mg (2 x 300 mg) PO TID # 270 07/16/24 11/26/24 caps buprenorphine 2 mg-naloxone 0.5 mg 2 tab sublingual BI D #112 tabs 09/20/24 11/26/24 sublingual tablet clonazepam 0.5 mg tablet 0.5 mg PO TID PRN anxiety #9 0 tabs 09/20/24 11/26/24 dicyclomine 10 mg capsule 10 mg PO BID #8 caps 5 11/26/24 famotidine 40 mg tablet 40 mg PO DAILY 60 days #60 t abs 11/25/24 11/26/24 Previous Rx's ?Medication ?Instructions ?Recorded hydroxyzine HCl 25 mg tablet 25 mg PO TID PRN itching #60 tabs 07/20/23 naloxone 4 mg/actuation nasal spray 4 mg intranasal Q2 M PRN opioid 07/20/23 overdose #2 ea metoprolol succinate 25 mg 25 mg PO DAILY #90 tabs tablet,extended release 24 hr ondansetron 4 mg disintegrating 4 mg PO Q8H PRN nausea and 06/28/24 tablet vomiting #90 tabs gabapentin 300 mg capsule 600 mg (2 x 300 mg) PO TID # 270 07/16/24 caps buprenorphine 2 mg-naloxone 0.5 mg 2 tab sublingual BI D #112 tabs 09/20/24 sublingual tablet clonazepam 0.5 mg tablet 0.5 mg PO TID PRN anxiety #9 0 tabs 09/20/24 dicyclomine 10 mg capsule 10 mg PO BID #8 caps 5 famotidine 40 mg tablet 40 mg PO DAILY 60 days #60 t abs 11/25/24 Allergies Allergy/AdvReac Type Severity Reaction Status Date / Time No Known Allergies Allergy Verified 11/26/24 22:02 General Stated Complaint: Abd Prob ANGELINA: 3 Exam Narrative Exam Narrative: Const: WDWN male in NAD. VS per triage. HEENT: NC/AT. Normal facial exam. Neck: Supple. Trachea midline. Lungs: Normal respiratory effort. Lungs are clear. Cor: RRR without murmur. Good radial pulses. GI: Soft/ND/NT. Neuro: A+O x 3. Normal speech, mentation, gait. Cranial nerves II - XII grossly intact. No gross motor or sensory deficit. Ext: No C/C/E. Course Vital Signs Vital signs: Vital Signs Temperature 98.6 F 11/26/24 21:58 Pulse 77 11/26/24 21:58 Respiratory Rate 20 11/26/24 21:58 Blood Pressure 143/79 H 11/26/24 21:58 Pulse Oximetry 99 11/26/24 21:58 Temperature 98.6 F 11/26/24 22:00 Pulse 77 11/26/24 22:00 Respiratory Rate 20 11/26/24 22:00 Blood Pressure 143/79 H 11/26/24 22:00 Blood Pressure Position Sitting 11/26/24 22:00 Pulse Oximetry 99 11/26/24 22:00 Oxygen Delivery Method Room Air 11/26/24 22:00 Oxygen Flow Rate 0 09/16/25 22:00 Medical Decision Making Patient presenting to ED with episodes of lightheadedness, shortness of breath, numbness and tingling involving all 4 extremities and face. This all seems likely hyperventilation and anxiety in nature. His exam is otherwise unremarkable. He states this does not feel like his typical panic attacks. His ED visit from yesterday was reviewed and he had essentially normal labs and CT scan. Denies any significant GI complaints. Is not describing vertigo or disequilibrium. Is very concerned that there is something else going on. He has had no ectopy on the monitor during the short time he has been here. Could certainly consider arrhythmia, unlikely to be electrolyte disturbance given labs yesterday, also unlikely to be cardiac ischemia or PE. We will check orthostatics and recheck laboratory studies including delta troponin and D- dimer. Will give 0.5 mg oral lorazepam pending studies and reevaluate once these have returned. Patient's EKG is sinus rhythm with normal axis and intervals, nonspecific ST changes unchanged from EKG done 08/14/2024. Laboratory studies remain reassuring. VBG unremarkable. Potassium a little low at 3.2 will give oral supplementation. Electrolytes otherwise normal. Troponin x 2 is flat. D-dimer negative. CBC with anemia which is stable. Patient declined lorazepam and act ually improved on his own, feeling much better. Chest x-ray was obtained and per my read normal. I do believe this likely was anxiety driven. Will plan discharge home have patient follow-up with primary care. Return precautions provided. Medical Records Medical records narrative: ED visit from yesterday, labs, imaging Imaging Data Radiologic Study: Attestation: I personally reviewed and interpreted this imaging study as follows: Imaging: X-Ray My impression: normal CXR Lab Data Lab results reviewed: Yes I reviewed the patient's lab results. Lab results narrative: see [facility] ECG Data Attestation: I personally reviewed and interpreted this ECG (s) as follows: Prior ECG tracings: available for review Interpretation: see EKG/MDM Quality:SDOH Health Related Social Needs: Health related social needs house/econ circumstance lo elliot/isolated PFSH All Active Problems (Updated 11/27/24 @ 00:54 by Yung Medina MD) Hypokalemia (Acute) Anxiety hyperventilation (Acute) Dehydration (Acute) Nausea & vomiting (Acute) Encounter for preoperative assessment (Acute) Cervicalgia (Acute) Left 07/12/24 [facility] with [facility] Left cervical radiculopathy (Chronic 10/13/23) Managed by [facility]; first epidural steroid injection given 01/17/2024 (Ceci Murray ROSIO @ [facility] 07/15/24 f/u [facility] -surgery planned. Foraminal stenosis of cervical region (Acute) Panic attacks (Acute) Low back pain (Acute) Chronic diarrhea (Acute) Pancreatitis (Chronic) [facility] [place]23 - 06/17/23 Hypophosphatasia (Acute) [facility] [place]23 - 06/17/23 Left arm weakness (Acute) Cervical radicular pain (Acute) Cyclic vomiting syndrome (Acute) Diarrhea (Acute) Hiatal hernia (Chronic) Acute UTI (Acute) SVT (supraventricular tachycardia) (Chronic) Inguinal hernia (Acute) 01/18/19 [facility] [place] Surgery for Evaluation of R Inguinal Hernia and future plan for laparoscopic repair. 03/25/2019 pre-anesthesia appoint at [facility] Anxiety (Chronic) Diverticulosis (Acute) Uncomplicated opioid dependence (Chronic 06/01/17) Medical History Encounter for diagnostic endoscopy (11/27/23) upper EUS [facility] pancreatitis sm cystic lesion in pancreatic tail Incarcerated right inguinal hernia Surgical History S/P cervical spinal fusion (~08/21/24) 08/21/2024 at [facility] [place]. Shaw Dow. C6-C7 History of colonoscopy (04/2023) History of esophagogastroduodenoscopy (EGD) (~05/04/21) 04/2023-[facility] [place]Mild,non-specific inflammation in mid-esophagus and stomach S/P right inguinal hernia repair (04/08/19) lap initial rgt hernia, direct and indirectw/ modifier mes, BARD Family History Mother No problems noted. Father Diabetes Heart disease Social History Smoking/Tobacco Use Status: Former Tobacco Use Quit Date: 03/13/14 Tobacco: How many years used: 15 Second Hand Exposure: No Smoking risk assessment performed?: Yes Alcohol Intake: never Drug use: Occasionally Substance use type: former substance user and opiates Details: sometimes' smokes/vapes marijuana. Household members: spouse and children Housing: house Number of Children: 3 Communication Needs: None Do you need help understanding health information?: Rarely current occupation: works [employer] Current gender identity: male What is your relationship status?: Panel score (0-1 are the most socially isolated patients): 1 What type of physical activity do you participate in: none Seatbelt use: always Drive intox or ride w/intox electric train driver: No Working smoke detector in home: Yes Fire extinguisher in home: Yes Carbon monox detector in home: Yes Do you feel safe at home: Yes Do you feel safe in your relationship?: Yes
--- NOTE | 2024-11-26 22:15 | RT.EKG_ITS ---
APPROVED REPORT Exam: Resting ECG Reason for Exam: lightheadedness Patient Location: E HR:61 bpm ECG Measurements Heart Rate 61 AXIS MS 191 P 44 QRSd 100 QRS 7 QT 437 T -9 QTc 439 Conclusion Sinus rhythm...normal P axis, V-rate 60- 99 Normal [place]/Interval Nonspecific T abnormalities, inferior leads...T <-0.10mV, II III aVF There are no significant changes compared to prior EKG performed on 08/14/2024 at 08:52.
[2024-11-26 23:00] LABS: BE (Venous) 2 mmol/L (-2-3); HCO3 (Venous) 28 mmol/L (23-28); O2 Sat (Venous) 53 %; TCO2 (Venous) 26 mmol/L (24-29); pCO2 (Venous) 52 mmHg (41-51); pO2 (Venous) 31 mmHg
[2024-11-26 23:03] LABS: Abs Immature Grans 0.01 10^3/uL (0.0-0.06); HCT 32.8 % (40.0-50.0); HGB 10.5 g/dL (13.5-17.5); Immature Grans % 0.2 %; MCH 29.6 pg (27.0-33.0); MCHC 32.0 % (32.0-36.0); MCV 92 fL (80-95); MPV 8.9 fL (8.0-11.0); Platelet Count 341 10^3/uL (130-400); RBC 3.55 10^6/uL (4.36-5.78); RDW 12.8 % (11.8-14.1); RDW-SD 43.7 fL; WBC 4.96 10^3/uL (4.4-10.8)
[2024-11-26 23:45] LABS: Troponin I 6 ng/L (<or=76)
[2024-11-26 23:52] LABS: Anion Gap 9.2 mmol/L (3-11); BUN 22 mg/dL (7-18); CO2 28.8 mmol/L (21.0-32.0); Calcium 9.3 mg/dL (8.5-10.1); Chloride 104 mmol/L (98-107); Estimated GFR 76.48 (mL/min/1.73m2); Glucose 80 mg/dL (74-106); Magnesium 2.3 mg/dL (1.8-2.4); Potassium 3.2 mmol/L (3.5-5.1); Sodium 142 mmol/L (136-145); TSH (W/Ref FT4) 2.10 uIU/mL (0.36-3.74)
[2024-11-27] VITALS (9 sets, daily range): BP systolic 100–101; BP diastolic 60–69; PULSE 47–53; O2SAT 93–97
--- NOTE | 2024-11-27 00:15 | DI.RAD_ITS ---
Exam(s) XR CHEST 2V PA LATERAL EXAM: XR CHEST 2V PA LATERAL CLINICAL HISTORY: SOB. TECHNIQUE: 2D digital imaging was performed. COMPARISON: CR XR PORTABLE CHEST AP from 06/09/2023 FINDINGS: 2 views: Heart size is normal. The mediastinum is not widened. Lungs are clear. No infiltrates nor pleural effusions. IMPRESSION: No acute pulmonary findings. DATA REPOSITORY: RADIATION DOSE DELIVERED:
[2024-11-27 00:20] LABS: D-Dimer 448 ng/mlFEU (<500)
[2024-11-27 00:23] LABS: Troponin I 6 ng/L (<or=76)
[2024-11-27] MEDS: Potassium Chloride 20 MEQ TABCR 40 MEQ PO (01:05)
--- NOTE | 2024-11-27 01:53 | DI.VRAD_ITS ---
PROCEDURE INFORMATION: Exam: XR Chest Exam date and time: 11/27/2024 12:44 AM Age: 44 years old Clinical indication: Shortness of breath; SOB TECHNIQUE: Imaging protocol: Radiologic exam of the chest. Views: 2 views. COMPARISON: CR XR PORTABLE CHEST AP 06/09/2023 5:33 PM FINDINGS: Lungs: The lungs are clear. No consolidative radiopacities. Pleural spaces: No pleural effusion. No pneumothorax. Heart/Mediastinum: The heart is normal size. Bones/joints: Unremarkable. IMPRESSION: No acute cardiopulmonary findings. Dictated and Authenticated by: Shruthi Coburn MD. Orderin Adam Barragan MD
== END 2024-11-27 01:06 | disposition home or self-care (01) ==
PROVIDERS: Emergency Provider Emergency Medicine; PCP Family Medicine
DX: F41.9 Anxiety disorder, unspecified (principal); E87.6 Hypokalemia; Z59.89 Other problems related to housing and economic circumstances
CPT/HCPCS: 99284 ×2; 36415; 80048; 82805; 93005; 71046; 83605; 83735; 84443; 84484; 85025; 85379; 93010